=== PATIENT | female | born 1940 | race Caucasian/White ===

== ENCOUNTER → 2017-10-18 10:47 | Outpatient (CLI) | payer OTHER, SELFPAY ==
[2017-10-18 11:47] LABS: Add Manual Diff / Slide Review NO; Hematocrit 36.7 % (36-46); Hemoglobin 12.6 g/dL (12.0-16.0); Lymphocytes Percent Auto 37.7 % (25-40); Mean Corpuscular HGB Conc 34.3 % (30-36); Mean Corpuscular Hemoglobin 32.1 PG (26-34); Mean Corpuscular Volume 93.6 fL (80-100); Neutrophils Absolute Auto 4400 /uL (3000-5900); Neutrophils Percent Auto 48.3 % (50-75); Platelet Count 327 X10^3/uL (150-400); Red Blood Cell Count 3.92 X10^6/uL (4.0-5.2); Red Cell Distribution Width 13.1 % (11.6-14.8); White Blood Cell Count 9.1 X10^3/uL (4.5-11.0)
[2017-10-18 12:24] LABS: Alanine Aminotransferase 43 IU/L (9-52); Albumin 4.3 g/dL (3.5-5.0); Albumin Globulin Ratio 1.3 (1.0-2.8); Alkaline Phosphatase 96 U/L (38-126); Amylase 34 U/L (30-110); Aspartate Aminotransferase 40 IU/L (14-36); BUN Creatinine Ratio 23.3 (6-22); Bilirubin Total 0.5 mg/dL (0.2-1.3); Calcium 9.5 mg/dL (8.4-10.2); Estimated Glomerular Filt Rate > 60.0 mL/min (>60); Globulin 3.2 g/dL (1.7-4.1); Glucose 96 mg/dL (80-110); HEMOLYSIS 15 (0-50); Lipase 43 U/L (23-300); Sodium 143 mmol/L (137-145); Total Protein 7.5 g/dL (6.3-8.2)
== END ==
PROVIDERS: PCP Family Medicine; Visit Provider Family Medicine
DX: R10.9 Unspecified abdominal pain (principal)
CPT/HCPCS: 36415; 80053; 82150; 83690; 85025

== ENCOUNTER 2017-11-13 09:46 | Emergency (ER) | payer OTHER, SELFPAY ==
[2017-11-13 10:01] VITALS: BP 178/71; PULSE 90; RESP 18; TEMP 36.9; O2SAT 98
[2017-11-13 10:13] LABS: Add Manual Diff / Slide Review NO; Basophils Percent Auto 1.1 % (0-2); Eosinophils Percent Auto 5.4 % (2-4); Hematocrit 40.9 % (36-46); Hemoglobin 13.9 g/dL (12.0-16.0); Lymphocytes Percent Auto 41.6 % (25-40); Mean Corpuscular Hemoglobin 32.6 PG (26-34); Mean Corpuscular Volume 95.7 fL (80-100); Monocytes Percent Auto 9.3 % (3-14); Neutrophils Absolute Auto 4000 /uL (3000-5900); Neutrophils Percent Auto 42.6 % (50-75); Platelet Count 247 X10^3/uL (150-400); Red Blood Cell Count 4.27 X10^6/uL (4.0-5.2); Red Cell Distribution Width 12.8 % (11.6-14.8); White Blood Cell Count 9.4 X10^3/uL (4.5-11.0)
[2017-11-13 10:20] LABS: Alanine Aminotransferase 50 IU/L (9-52); Albumin 4.5 g/dL (3.5-5.0); Albumin Globulin Ratio 1.3 (1.0-2.8); Alkaline Phosphatase 74 U/L (38-126); Aspartate Aminotransferase 43 IU/L (14-36); BUN Creatinine Ratio 22.9 (6-22); Bilirubin Total 0.8 mg/dL (0.2-1.3); Blood Urea Nitrogen 16 mg/dL (7-17); Calcium 9.3 mg/dL (8.4-10.2); Carbon Dioxide 28 mmol/L (22-32); Chloride 102 mmol/L (98-107); Estimated Glomerular Filt Rate > 60.0 mL/min (>60); Globulin 3.4 g/dL (1.7-4.1); Glucose 160 mg/dL (80-110); Lipase 37 U/L (23-300); Potassium 4.2 mmol/L (3.4-5.1); Sodium 142 mmol/L (137-145); Total Protein 7.9 g/dL (6.3-8.2)
[2017-11-13 10:21] LABS: HEMOLYSIS 56 (0-50); Lactate (Lactic Acid) 1.4 mmol/L (0.7-2.1)
--- NOTE | 2017-11-13 10:24 | ED.ABDPAIN ---
HPI - Abdominal Pain General Chief Complaint: Abdominal Pain Stated Complaint: BOWEL BLOCKAGE Time Seen by Provider: 11/13/17 09:54 Source: patient Mode of arrival: ambulatory Limitations: no limitations History of Present Illness HPI narrative: 77-year-old female with a longstanding history of constipation here for evaluation of constipation for the past 10 days and possible ?bowel blockage. Patient states that her last bowel movement was 10 days ago. States she has stopped taking her oxycodone. Has also tried MiraLax approximately 1 week ago. Tried an enema within the past 24 hr. States that she does feel somewhat nauseous. Feels like her abdomen is distended. No urinary symptoms. Related Data Home Medications Medication Instructions Recorded Confirmed Fish Oil 500 mg PO Q DAY #0 12/22/15 11/13/17 calcium carbonate 1 tab PO DAILY #0 tab 12/22/15 11/13/17 polyethylene glycol 3350 [Miralax] 17 gm PO Q DAY PRN #0 12/22/15 11/13/17 One Daily Women 50 Plus 1 tab PO DAILY 11/13/17 11/13/17 Previous Rx's Medication Instructions Recorded amlodipine [Norvasc] 5 mg PO QDAY #90 tab 03/20/17 atorvastatin [Lipitor] 10 mg PO HS #30 tab 04/02/17 dicyclomine 20 mg PO PRN #90 tab 08/12/17 amitriptyline 25 mg PO HS #60 tab 09/02/17 ondansetron 4 - 8 mg SUBLINGUAL Q8HP PRN #40 09/02/17 odt sucralfate 1 gram tablet 1 gram PO Q DAY PRN #90 tab 10/09/17 hydrocodone 5 mg-acetaminophen 325 1 tab PO BID PRN #60 tab 10/18/17 mg tablet omeprazole 40 mg capsule,delayed 40 mg PO AC #90 cap 10/31/17 release lisinopril 20 mg tablet 20 mg PO QDAY #90 tab 11/01/17 magnesium citrate 120 ml PO BID PRN #296 ml 11/13/17 Allergies Allergy/AdvReac Type Severity Reaction Status Date / Time prochlorperazine Allergy Severe lock jaw Verified 10/18/17 09:53 [PROCHLORPERAZINE] type symptoms amoxicillin [From AUGMENTIN] Allergy Intermediate Nausea and Verified 10/18/17 09:53 vomitting. clavulanic acid Allergy Intermediate n&v Verified 10/18/17 09:53 [From AUGMENTIN] Review of Systems Constitutional Denies chills, Denies fever(s), Denies lethargy and Denies weakness Cardiovascular Denies chest pain, Denies irregular heart rhythm, Denies lightheadedness, Denies palpitations, Denies dyspnea, Denies dyspnea on exertion and Denies orthopnea Respiratory Denies cough, Denies dyspnea, Denies dyspnea on exertion and Denies wheezing Gastrointestinal Gastrointestinal: Reports change in bowel habits, Reports constipation, Denies diarrhea, Denies loose stools, Reports nausea and Denies vomiting Genitourinary Denies dysuria Integumentary/Breasts Denies pruritus, Denies erythema, Denies rash and Denies wounds Neurologic Denies weakness Endocrine Denies palpitations Hematologic/Lymphatic Denies easy bruising Allergic/Immunologic Denies wheezing [facility] Medical History Irritable bowel syndrome without diarrhea (Chronic 12/22/15) Midline low back pain without sciatica (Chronic 12/22/15) Uncomplicated opioid use (Chronic 03/12/17) Chronic back pain (Chronic 1999) Colitis (Chronic 1979) GERD (gastroesophageal reflux disease) (Chronic 1979) Hypercholesterolemia (Chronic Unknown) Hypertension (Chronic 1979) IBS (irritable bowel syndrome) (Chronic 2001) Osteopenia (Chronic 06/2015) Osteoporosis (Chronic 05/2017) Sleep apnea (Chronic 2009) Breast cancer (Resolved 2001) Chickenpox (Resolved Unknown) Kidney stones (Resolved 1989) Measles (Resolved Unknown) Mumps (Resolved Unknown) 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 Social History Smoking Status: Never smoker Exam Initial Vital Signs Initial Vital Signs: Vital Signs Temperature 98.5 F 11/13/17 10:01 Pulse Rate 90 11/13/17 10:01 Respiratory Rate 18 11/13/17 10:01 Blood Pressure 178/71 H 11/13/17 10:01 Pulse Oximetry 98 11/13/17 10:01 Resp Effort & Inspection: normal respiratory effort, able to speak in complete sentences, no respiratory distress and no use of accessory muscles Auscultation: clear to auscultation bilaterally, no rales, no rhonchi and no wheezes Cardio Rate: regular rate Rhythm: regular rhythm Heart Sounds: no click, no gallops, no murmurs and no rubs Pulses: normal peripheral pulses GI Inspection: distended Palpation: soft, No firm and No guarding Auscultation: normal bowel sounds Back/Spine/Pelvis Back: No CVA tenderness Skin General: no rashes or lesions noted, No jaundice and No petechiae Neuro General: alert, oriented x3, gait normal and no focal motor deficits Speech: speech normal Extrem General: full ROM, no clubbing, cyanosis or edema, no pedal edema and no calf tenderness Course Orders Ordered: ED Orders 11/13/17 10:00 Complete Blood Count AUTO DIFF Stat Comprehensive Metabolic Panel Stat Lactate (Lactic Acid) Stat Lipase Stat 11/13/17 11:30 CT abdomen pelvis w con Stat Vital Signs - 8 hr 11/13/17 10:01 11/13/17 11:02 11/13/17 12:11 Temperature 98.5 F Pulse Rate 90 72 69 Respiratory Rate 18 15 Blood Pressure 178/71 H Blood Pressure [Left Arm] 159/67 H 162/61 H Pulse Oximetry 98 100 99 11/13/17 12:49 11/13/17 12:50 Temperature Pulse Rate 68 79 Respiratory Rate 18 16 Blood Pressure 136/60 H Blood Pressure [Left Arm] 136/60 H Pulse Oximetry 96 98 MDM - Abdominal Pain Lab Data Attestation: I reviewed the patient's lab results. Result diagrams: 11/13/17 10:00 11/13/17 10:00 Lab Results 11/13/17 11/13/17 11/13/17 Range/Units 10:00 10:00 10:00 WBC 9.4 (4.5-11.0) X10^3/uL RBC 4.27 (4.0-5.2) X10^6/uL Hgb 13.9 (12.0-16.0) g/dL Hct 40.9 (36-46) % MCV 95.7 (80-100) fL MCH 32.6 (26-34) PG MCHC 34.0 (30-36) % RDW 12.8 (11.6-14.8) % Plt Count 247 (150-400) X10^3/uL Neut % (Auto) 42.6 L (50-75) % Lymph % (Auto) 41.6 H (25-40) % [place] % (Auto) 9.3 (3-14) % Eos % (Auto) 5.4 H (2-4) % Baso % (Auto) 1.1 (0-2) % Neut # (Auto) 4000 (1684-1207) /uL Sodium 142 (137-145) mmol/L Potassium 4.2 (3.4-5.1) mmol/L Chloride 102 (98-107) mmol/L Carbon Dioxide 28 (22-32) mmol/L BUN 16 (7-17) mg/dL Creatinine 0.70 (0.52-1.04) mg/dL Estimated GFR > 60.0 (>60) mL/min BUN/Creatinine Ratio 22.9 H (6-22) Glucose 160 H (80-110) mg/dL Lactate 1.4 (0.7-2.1) mmol/L Calcium 9.3 (8.4-10.2) mg/dL Total Bilirubin 0.8 (0.2-1.3) mg/dL AST 43 H (14-36) IU/L ALT 50 (9-52) IU/L Alkaline Phosphatase 74 (38-126) U/L Total Protein 7.9 (6.3-8.2) g/dL Albumin 4.5 (3.5-5.0) g/dL Globulin 3.4 (1.7-4.1) g/dL Albumin/Globulin Ratio 1.3 (1.0-2.8) Lipase 37 (23-300) U/L Imaging Data CT scan - abdomen: Radiologist's impression: PROCEDURE: CT ABDOMEN PELVIS W CON INDICATIONS: Abdominal pain, distension, constipation concern for obstruction. TECHNIQUE: After the administration of oral and intravenous contrast, 5 mm thick sections acquired from the diaphragms to the symphysis. 5 mm thick coronal and sagittal reformats were performed. For radiation dose reduction, the following was used: automated exposure control, adjustment of mA and/or kV according to patient size. COMPARISON: [facility], CT, ABDOMEN/PELVIS WITH CONTRAST, 01/21/2014, 10:21. [facility], [place], ABDOMEN/PELVIS WITH CONTRAST, 01/21/2012, 13:55. [facility], [place], ABDOMEN/PELVIS WITH CONTRAST, 04/26/2011, 11:39. FINDINGS: Image quality: Excellent. ABDOMEN: Lung bases: Lung bases are clear. Heart size is normal. Solid organs: Liver is normal in size. A small, approximately 6 mm in diameter focus of ill-defined postcontrast enhancement of the anterior-superior subsegment of the right lobe of liver is stable compared to 01/18 2014 and a represent flash filling of a small hemangioma. Liver otherwise has normal postcontrast enhancement. Diffuse fatty infiltration the liver is noted. Gallbladder is surgically absent. Biliary system is non-dilated. Pancreas enhances normally. Spleen is normal in size and enhancement. No adrenal nodules. Kidneys are normal in size and enhancement, without hydronephrosis. Right renal cyst is stable. Peritoneum and bowel: Moderate size hiatal hernia. Stomach, small bowel, and colon loops are normal in caliber and wall thickness. A few diverticuli are noted in the sigmoid colon without evidence diverticulitis. Moderate amount of stool seen throughout the colon. No free fluid or air. The appendix is not definitely visualized, however no free fluid or inflammatory changes are noted adjacent to the cecum. Nodes and vessels: No retroperitoneal or mesenteric adenopathy. Aorta and inferior vena cava are normal in caliber. Scattered atherosclerotic calcifications involving the abdominal and pelvic vasculature. Miscellaneous: No ventral hernias. PELVIS: Genitourinary: Bladder wall thickness is normal. Uterus is absent. Miscellaneous: No inguinal hernias or adenopathy. Bones: No suspicious bony lesions. No vertebral body compression fractures. Spine degenerative disc disease and facet arthropathy. IMPRESSION: 1. No acute disease process. 2. No dilated loops of bowel. 3. No free fluid or free air. 4. Moderate fecal loading throughout the colon compatible with the reported history of constipation. 5. Hepatic steatosis. 6. Status post cholecystectomy and hysterectomy. Dictated by: Rosaura Devlin MD, PhD on 11/13/2017 at 11:48 MDM Narrative Medical decision making narrative: Patient without signs of obstruction on the CT scan. Does have a distended abdomen however it is soft. We did discuss the use of enemas and she states that she does not feel like there is any stool near her rectum. Will hold on rectal exam for now. We did discuss the use of oral laxatives. Will send home with a prescription for Mag citrate that she could use along with her MiraLax. She does have a GI provider that she sees. She was given return precautions. She expressed understanding and agreement with plan. Discharge Plan Departure Patient Disposition: Home, Self-Care Clinical Impression: Constipation Discharge Date/Time: 11/13/17 12:51 Interventions: ED Discharge Assessment Last Done: 11/13/17 12:49 Instructions: Constipation (Alternative Therapy), Constipation Activity Restrictions/Additional Instructions: Recommend that you continue with the bowel regimen like we discussed. Return to the emergency department for any new or worsening symptoms Prescriptions: New magnesium citrate solution 120 ml PO BID PRN (Reason: constipation) Qty: 296 RF: 0 No Action hydrocodone-acetaminophen [[place]] 5-325 mg tablet 1 tab PO BID PRN (Reason: pain) Qty: 60 RF: 0 calcium carbonate 500 MG tablet 1 tab PO DAILY Qty: 0 RF: 0 Fish Oil 500 mg PO Q DAY Qty: 0 RF: 0 polyethylene glycol 3350 [Miralax] 17 GM powder in packet 17 gm PO Q DAY PRN (Reason: Constipation) Qty: 0 RF: 0 amlodipine [Norvasc] 5 MG tablet 5 mg PO QDAY Qty: 90 RF: 3 atorvastatin [Lipitor] 10 MG tablet 10 mg PO HS Qty: 30 RF: 2 dicyclomine 20 MG tablet 20 mg PO PRN Qty: 90 RF: 3 amitriptyline 25 MG tablet 25 mg PO HS Qty: 60 RF: 5 ondansetron 4 MG tablet,disintegrating 4 - 8 mg Sublingual Q8HP PRNQty: 40 RF: 4 sucralfate 1 gram tablet 1 gram PO Q DAY PRN (Reason: IBS) Qty: 90 RF: 0 omeprazole 40 mg capsule,delayed release(DR/EC) 40 mg PO AC Qty: 90 RF: 1 lisinopril 20 mg tablet 20 mg PO QDAY Qty: 90 RF: 1 One Daily Women 50 Plus 1 tab PO DAILY RF: 0
[2017-11-13 11:02] VITALS: BP 159/67; PULSE 72; O2SAT 100
--- NOTE | 2017-11-13 11:30 | DI.CT.S_ITS ---
PROCEDURE: CT ABDOMEN PELVIS W CON INDICATIONS: Abdominal pain, distension, constipation concern for obstruction. TECHNIQUE: After the administration of oral and intravenous contrast, 5 mm thick sections acquired from the diaphragms to the symphysis. 5 mm thick coronal and sagittal reformats were performed. For radiation dose reduction, the following was used: automated exposure control, adjustment of mA and/or kV according to patient size. COMPARISON: [facility], CT, ABDOMEN/PELVIS WITH CONTRAST, 01/21/2014, 10:21. [facility], CT, ABDOMEN/PELVIS WITH CONTRAST, 01/21/2012, 13:55. [facility], CT, ABDOMEN/PELVIS WITH CONTRAST, 04/26/2011, 11:39. FINDINGS: Image quality: Excellent. ABDOMEN: Lung bases: Lung bases are clear. Heart size is normal. Solid organs: Liver is normal in size. A small, approximately 6 mm in diameter focus of ill-defined postcontrast enhancement of the anterior-superior subsegment of the right lobe of liver is stable compared to 01/18 2014 and a represent flash filling of a small hemangioma. Liver otherwise has normal postcontrast enhancement. Diffuse fatty infiltration the liver is noted. Gallbladder is surgically absent. Biliary system is non-dilated. Pancreas enhances normally. Spleen is normal in size and enhancement. No adrenal nodules. Kidneys are normal in size and enhancement, without hydronephrosis. Right renal cyst is stable. Peritoneum and bowel: Moderate size hiatal hernia. Stomach, small bowel, and colon loops are normal in caliber and wall thickness. A few diverticuli are noted in the sigmoid colon without evidence diverticulitis. Moderate amount of stool seen throughout the colon. No free fluid or air. The appendix is not definitely visualized, however no free fluid or inflammatory changes are noted adjacent to the cecum. Nodes and vessels: No retroperitoneal or mesenteric adenopathy. Aorta and inferior vena cava are normal in caliber. Scattered atherosclerotic calcifications involving the abdominal and pelvic vasculature. Miscellaneous: No ventral hernias. PELVIS: Genitourinary: Bladder wall thickness is normal. Uterus is absent. Miscellaneous: No inguinal hernias or adenopathy. Bones: No suspicious bony lesions. No vertebral body compression fractures. Spine degenerative disc disease and facet arthropathy. IMPRESSION: 1. No acute disease process. 2. No dilated loops of bowel. 3. No free fluid or free air. 4. Moderate fecal loading throughout the colon compatible with the reported history of constipation. 5. Hepatic steatosis. 6. Status post cholecystectomy and hysterectomy. Dictated by: Rosaura Devlin MD, PhD on 11/13/2017 at 11:48 Approved by: Rosaura Devlin MD, PhD on 11/13/2017 at 11:55
[2017-11-13 12:11] VITALS: BP 162/61; PULSE 69; RESP 15; O2SAT 99
--- NOTE | 2017-11-13 12:26 | PC.NURSE ---
To transfer to for admission. Possible pacemaker placemacement.
[2017-11-13 12:49] VITALS: BP 136/60; PULSE 68; RESP 18; O2SAT 96
[2017-11-13 12:50] VITALS: BP 136/60; PULSE 79; RESP 16; O2SAT 98
== END 2017-11-13 12:51 | disposition home or self-care (01) ==
PROVIDERS: Emergency Provider Emergency Medicine; PCP Family Medicine
DX: K59.00 Constipation, unspecified (principal)
CPT/HCPCS: 36591; 74177; 80053; 81003; 83605; 83690; 85025; 99283; 99285; Q9967

== ENCOUNTER 2019-12-31 14:58 | Emergency (ER) | payer MEDICARE, SELFPAY ==
[2019-12-31 15:03] VITALS: BP 147/70; PULSE 89; RESP 14; TEMP 36.7; O2SAT 97; BMI 26.4
[2019-12-31] MEDS: SODIUM CHLORIDE 0.9% 1,000 ML 150 ML IV (15:45)
[2019-12-31 15:51] LABS: Add Manual Diff / Slide Review NO; Basophils Absolute Auto 100 /uL (0-100); Basophils Percent Auto 0.9 % (0-2); Eosinophils Absolute Auto 500 /uL (0-450); Eosinophils Percent Auto 4.5 % (2-4); Hematocrit 34.6 % (36-46); Hemoglobin 11.8 g/dL (12.0-16.0); Lymphocytes Absolute Auto 3100 /uL (1100-4500); Lymphocytes Percent Auto 26.2 % (25-40); Mean Corpuscular Hemoglobin 32.1 PG (26-34); Mean Corpuscular Volume 94.3 fL (80-100); Monocytes Absolute Auto 1000 /uL (0-900); Monocytes Percent Auto 8.9 % (3-14); Neutrophils Absolute Auto 6900 /uL (1500-7000); Neutrophils Percent Auto 59.5 % (50-75); Platelet Count 261 X10^3/uL (150-400); Red Blood Cell Count 3.67 X10^6/uL (4.0-5.2); Red Cell Distribution Width 12.8 % (11.6-14.8); White Blood Cell Count 11.7 X10^3/uL (4.5-11.0)
--- NOTE | 2019-12-31 15:52 | ED.NAVMDI ---
HPI - Nausea/Vomiting/Diarrhea General Chief complaint: Nausea/Vomiting/Diarrhea Stated complaint: IBS since saturday, thinks dehydrated Time Seen by Provider: 12/31/19 15:14 Source: patient Mode of arrival: Ambulatory Limitations: no limitations History of Present Illness HPI Narrative: Patient is an 79-year-old female with history of IBS presenting with nausea vomiting abdominal pain and down diarrhea ongoing for the last 5 days. This is happened to her many times. However at this time it is the worst. This started with vomiting and able to keep anything down and she has had intermittent episodes of diarrhea sometimes blood streaked which is not uncommon for her. She says she over all feels run down and weak, she feels a little dizzy lightheaded when she stands up she is unable to keep any fluids down. She has abdominal pain mostly in the right lower quadrant. MD complaint: nausea, vomiting, diarrhea and abdominal pain Onset (ago): day(s) Description of Diarrhea: blood-streaked Location of pain: RLQ Severity: moderate Quality: cramping Related Data Home Medications Medication Instructions Recorded Confirmed Fish Oil 500 mg PO Q DAY #0 12/22/15 07/10/19 calcium carbonate 1 tab PO DAILY #0 tab 12/22/15 07/10/19 polyethylene glycol 3350 [Miralax] 17 gm PO Q DAY PRN #0 12/22/15 07/10/19 One Daily Women 50 Plus 1 tab PO DAILY 11/13/17 07/10/19 sucralfate 1 gram tablet 1 gram PO ONCE tab 07/10/19 07/10/19 Previous Rx's Medication Instructions Recorded ondansetron 4 - 8 mg SUBLINGUAL Q8HP PRN #40 09/02/17 odt lisinopril 20 1 tab PO DAILY #90 tab 11/26/18 mg-hydrochlorothiazide 25 mg tablet cyclobenzaprine 5 mg tablet 5 mg PO BEDTIME PRN #90 tab 08/11/19 acetaminophen 300 mg-codeine 30 mg 1 tab PO DAILY PRN #30 tab 09/25/19 tablet dicyclomine 20 mg tablet 20 mg PO PRN #30 tab 09/25/19 omeprazole 40 mg capsule,delayed 40 mg PO AC #90 cap 09/28/19 release amlodipine 2.5 mg tablet 2.5 mg PO QDAY #90 tab 06/17/20 ondansetron 4 mg PO Q8H PRN #10 tab 12/31/19 Allergies Allergy/AdvReac Type Severity Reaction Status Date / Time prochlorperazine Allergy Severe lock jaw Verified 12/31/19 15:23 [PROCHLORPERAZINE] type symptoms amoxicillin [From AUGMENTIN] Allergy Intermediate Nausea and Verified 12/31/19 15:23 vomitting. clavulanic acid Allergy Intermediate n&v Verified 12/31/19 15:23 [From AUGMENTIN] Review of Systems Review of Systems ROS Unobtainable: All systems reviewed & are unremarkable except as noted in HPI and below Constitutional Constitutional: Denies chills, Denies fever(s), Denies lethargy and Denies weakness Eyes Eyes: Denies change in vision, Denies eye discharge, Denies irritation and Denies loss of vision ENT Ears, Nose, Mouth, and Throat: Denies change in voice, Denies neck pain and Denies sore throat Cardiovascular Cardiovascular: Denies chest pain, Denies irregular heart rhythm, Reports lightheadedness, Denies palpitations and Denies orthopnea Musculoskeletal Musculoskeletal: Denies neck pain Neurologic Neurologic: Denies loss of vision and Denies weakness Endocrine Endocrine: Denies palpitations Patient History Medical History (Updated 12/31/19 @ 18:20 by Chloé Urena DO) Breast cancer (Resolved 2001) Chickenpox (Resolved Unknown) Chronic back pain (Chronic 1999) Colitis (Chronic 1979) GERD (gastroesophageal reflux disease) (Chronic 1979) Hypercholesterolemia (Chronic Unknown) Hypertension (Chronic 1979) IBS (irritable bowel syndrome) (Chronic 2001) Irritable bowel syndrome without diarrhea (Chronic 12/22/15) Kidney stones (Resolved 1989) Measles (Resolved Unknown) Midline low back pain without sciatica (Chronic 12/22/15) Mumps (Resolved Unknown) Osteopenia (Chronic 06/2015) Osteoporosis (Chronic 05/2017) Sleep apnea (Chronic 2009) 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 Social History marital status: housing: house Smoking Status: Never smoker Smoking Status: Never smoker alcohol intake frequency: holidays/special occasions only Substance Use Type: does not use Exam Initial Vital Signs Initial Vital Signs: Vital Signs Temperature 98.0 F 12/31/19 15:03 Pulse Rate 89 12/31/19 15:03 Respiratory Rate 14 12/31/19 15:03 Blood Pressure 147/70 H 12/31/19 15:03 Pulse Oximetry 97 12/31/19 15:03 GENERAL: Alert pleasant elderly female HEENT: Head atraumatic,EOMI, pupils reactive, face symmetric, dry mucous membranes CARDIOVASCULAR: Regular rate and rhythm without murmurs, rubs or gallops. RESPIRATORY: Breath sounds equal bilaterally, no wheezes rales or rhonchi. ABDOMEN: Soft, increased bowel sounds nondistended tender right lower quadrant : No CVA tenderness EXTREMITIES: Normal range of motion, no clubbing or edema. Neurovascularly intact NEUROLOGICAL: Alert and oriented x4.Normal gait and speech. Cranial nerves II through XII grossly intact. SKIN: Warm, dry, no laceration, no petechiae, no rashes or lesions. Course Orders Ordered: Discontinued Medications Sodium Chloride (Normal Saline 0.9%) 1,000 mls @ 150 mls/hr IV CONT BARBIE Last Infusion: 12/31/19 19:06 Dose: 0 mls/hr Documented by: Infusion: 12/31/19 19:05 Dose: 999 mls/hr Documented by: Admin: 12/31/19 15:45 Dose: 150 mls/hr Documented by: ERICA Vital Signs Vital signs: Vital Signs - 8 hr 12/31/19 15:03 12/31/19 16:12 Temperature 98.0 F Pulse Rate 89 Pulse Rate [Orthostatic Lying] 83 Pulse Rate [Orthostatic Sitting] 85 Pulse Rate [Orthostatic Standing] 91 H Respiratory Rate 14 Blood Pressure 147/70 H Blood Pressure [Orthostatic Lying] 163/70 H Blood Pressure [Orthostatic Sitting] 149/82 H Blood Pressure [Orthostatic Standing] 136/65 Pulse Oximetry 97 MDM - Nausea/Vomiting/Diarrhea Lab Data Attestation: I reviewed the patient's lab results. Result diagrams: 12/31/19 15:43 08/06/20 15:43 Labs: Lab Results 12/31/19 12/31/19 Range/Units 15:43 15:43 WBC 11.7 H (4.5-11.0) X10^3/uL RBC 3.67 L (4.0-5.2) X10^6/uL Hgb 11.8 L (12.0-16.0) g/dL Hct 34.6 L (36-46) % MCV 94.3 (80-100) fL MCH 32.1 (26-34) PG MCHC 34.0 (30-36) % RDW 12.8 (11.6-14.8) % Plt Count 261 (150-400) X10^3/uL Neut % (Auto) 59.5 (50-75) % Lymph % (Auto) 26.2 (25-40) % Stearns % (Auto) 8.9 (3-14) % Eos % (Auto) 4.5 H (2-4) % Baso % (Auto) 0.9 (0-2) % Neut # (Auto) 6900 (4754-5714) /uL Lymph # (Auto) 3100 (1546-0829) /uL Stearns # (Auto) 1000 H (0-900) /uL Eos # (Auto) 500 H (0-450) /uL Baso # (Auto) 100 (0-100) /uL Sodium 137 (137-145) mmol/L Potassium 4.8 (3.4-5.1) mmol/L Chloride 100 (98-107) mmol/L Carbon Dioxide 27 (22-32) mmol/L BUN 26 H (7-17) mg/dL Creatinine 1.21 H (0.52-1.04) mg/dL Estimated GFR 42.7 L (>60) mL/min BUN/Creatinine Ratio 21.5 (6-22) Glucose 114 H (80-110) mg/dL Calcium 10.3 H (8.4-10.2) mg/dL Total Bilirubin 0.6 (0.2-1.3) mg/dL AST 39 H (14-36) IU/L ALT 28 (<35) IU/L Alkaline Phosphatase 84 (38-126) U/L Total Protein 7.7 (6.3-8.2) g/dL Albumin 4.4 (3.5-5.0) g/dL Globulin 3.3 (1.7-4.1) g/dL Albumin/Globulin Ratio 1.3 (1.0-2.8) Lipase 46 (23-300) U/L Urine Dip Bedside Urine Glucose Negative Bedside Urine Bilirubin - Negative Bedside Urine Ketone - Negative Urine Specific Tornillo 1.010 Bedside Urine Occult Blood - Negative Bedside Urine Protein - Negative Bedside Urine Urobilinogen +/- 1mg Bedside Urine Nitrite - Negative Bedside Urine Leukocytes - Negative Esterase Imaging Data CT scan - abdomen/pelvis: Radiologist's Impression: PROCEDURE: CT ABDOMEN PELVIS W CON INDICATIONS: rlq pain TECHNIQUE: After the administration of intravenous contrast, 5 mm thick sections acquired from the diaphragm to the symphysis. 5 mm coronal and sagittal reformats were acquired. For radiation dose reduction, the following was used: automated exposure control, adjustment of mA and/or kV according to patient size. COMPARISON: [facility], CT, CT ABDOMEN PELVIS W CON, 11/13/2017, 11:06. [facility], CT, ABDOMEN/PELVIS WITH CONTRAST, 01/21/2014, 10:21. FINDINGS: Image quality: Excellent. ABDOMEN: Lung bases: Lung bases are clear. Heart size is normal. Solid organs: Liver is normal in size and enhancement. A non-specific calcification is seen at the anterior margin of the left hepatic lobe, possibly related to prior granulomatous disease. The gallbladder is surgically absent. The intrahepatic and extrahepatic biliary ducts are not significantly enlarged. The pancreas enhances normally. The spleen is normal in size and contains a few small coarse calcifications, likely the sequela of prior granulomatous disease. No adrenal nodule is identified. An exophytic cyst is seen in the interpolar region of the right kidney. There is no hydronephrosis. Peritoneum and bowel: A small hiatal hernia is present. A few diverticula are seen in the sigmoid colon without signs of acute diverticulitis. Moderate stool is seen throughout the colon. The appendix is not definitely visualized, but there are no secondary signs of acute appendicitis. There are no signs of bowel obstruction. There is no ascites or pneumoperitoneum. Nodes and vessels: No retroperitoneal or mesenteric adenopathy by size criteria. Aorta and inferior vena cava are normal in size. Moderate atherosclerotic calcifications are seen in the aorta. Miscellaneous: No ventral hernias. PELVIS: Genitourinary: Bladder wall thickness is normal. Status post hysterectomy. No adnexal mass is seen. Miscellaneous: No inguinal hernias or adenopathy. Bones: No suspicious bony lesions. Post vertebroplasty changes are seen in the T12 vertebral body. IMPRESSION: 1. No acute abnormality is identified in the abdomen or pelvis. 2. Mild colonic diverticulosis without signs of acute diverticulitis. 3. Small hiatal hernia. Dictated by: Benjie Nieves M.D. on 12/31/2019 at 16:22 Approved by: Benjie Nieves M.D. on 12/31/2019 at 16:32 [facility] Narrative Medical decision making narrative: Patient is tolerating oral fluids her creatinine is slightly more elevated than normal today is 1.21 previously 0.7, she received 1 L of IV fluids. At this time she is overall feeling much better. I recommend she go home with her Zofran which she has had before. I also talked with her about coming to the ED sooner. She overall is feeling better she understands and agrees to come back sooner if needed. Discharge Plan Departure Patient Disposition: Home Clinical Impression: Gastroenteritis, Acute dehydration Discharge Date/Time: 12/31/19 18:41 Instructions: DI for Dehydration -- Adult, DI for Viral Gastroenteritis -- Adult Activity Restrictions/Additional Instructions: *You have been diagnosed with dehydration *What to do: Increase fluid intake recommend, broth, Jell-O, applesauce Gatorade and or water *Continue to take medications as directed Zofran 4 mg every 8 hours if needed for nausea or vomiting--> SENT TO [facility] [place] *Follow up with your primary care provider in 2-3 days *Return to ER if you should have persistent vomiting or diarrhea increased dizziness or lightheadedness or any new, worsening or concerning symptoms Prescriptions: New ondansetron 4 mg tablet,disintegrating 4 mg PO Q8H PRN (Reason: nausea and vomiting) Qty: 10 RF: 0 No Action calcium carbonate 500 MG tablet 1 tab PO DAILY Qty: 0 RF: 0 Fish Oil 500 mg PO Q DAY Qty: 0 RF: 0 polyethylene glycol 3350 [Miralax] 17 GM powder in packet 17 gm PO Q DAY PRN (Reason: Constipation) Qty: 0 RF: 0 ondansetron 4 MG tablet,disintegrating 4 - 8 mg Sublingual Q8HP PRNQty: 40 RF: 4 lisinopril-hydrochlorothiazide 20-25 mg tablet 1 tab PO DAILY Qty: 90 RF: 3 cyclobenzaprine 5 mg tablet 5 mg PO BEDTIME PRN (Reason: muscle spasm) Qty: 90 RF: 1 dicyclomine 20 mg tablet 20 mg PO PRN Qty: 30 RF: 0 acetaminophen-codeine [Tylenol-Codeine #3] 300-30 mg tablet 1 tab PO DAILY PRN (Reason: pain) Qty: 30 RF: 3 omeprazole 40 mg capsule,delayed release(DR/EC) 40 mg PO AC Qty: 90 RF: 1 amlodipine 2.5 mg tablet 2.5 mg PO QDAY Qty: 90 RF: 1 sucralfate 1 gram tablet 1 gram PO ONCE RF: 0 One Daily Women 50 Plus 1 tab PO DAILY RF: 0 Referrals: Oliver Blank MD [Primary Care Provider] -
[2019-12-31 16:04] LABS: Alanine Aminotransferase 28 IU/L (<35); Albumin 4.4 g/dL (3.5-5.0); Albumin Globulin Ratio 1.3 (1.0-2.8); Alkaline Phosphatase 84 U/L (38-126); Aspartate Aminotransferase 39 IU/L (14-36); BUN Creatinine Ratio 21.5 (6-22); Bilirubin Total 0.6 mg/dL (0.2-1.3); Blood Urea Nitrogen 26 mg/dL (7-17); Calcium 10.3 mg/dL (8.4-10.2); Carbon Dioxide 27 mmol/L (22-32); Chloride 100 mmol/L (98-107); Estimated Glomerular Filt Rate 42.7 mL/min (>60); Globulin 3.3 g/dL (1.7-4.1); Glucose 114 mg/dL (80-110); HEMOLYSIS < 15 (0-50); Lipase 46 U/L (23-300); Potassium 4.8 mmol/L (3.4-5.1); Sodium 137 mmol/L (137-145); Total Protein 7.7 g/dL (6.3-8.2)
[2019-12-31 16:12] VITALS: BP 136/65; BP 149/82; BP 163/70; PULSE 83; PULSE 85; PULSE 91
[2019-12-31 18:24] VITALS: BP 163/69; PULSE 83; RESP 15; O2SAT 100
== END 2019-12-31 18:41 | disposition home or self-care (01) ==
PROVIDERS: Emergency Provider Emergency Medicine; PCP Student in an Organized Health Care Education/Training Program
DX: K52.9 Noninfective gastroenteritis and colitis, unspecified (principal); E86.0 Dehydration; R11.2 Nausea with vomiting, unspecified
CPT/HCPCS: 74177; 80053; 81003; 83690; 85025; 96360; 96361; 99284

== ENCOUNTER → 2020-01-09 10:53 | Outpatient (CLI) | payer MEDICARE, SELFPAY ==
[2020-01-09 12:27] LABS: BUN Creatinine Ratio 22.7 (6-22); Blood Urea Nitrogen 22 mg/dL (7-17); Calcium 9.4 mg/dL (8.4-10.2); Carbon Dioxide 28 mmol/L (22-32); Chloride 103 mmol/L (98-107); Estimated Glomerular Filt Rate 55.1 mL/min (>60); Glucose 123 mg/dL (80-110); HEMOLYSIS < 15 (0-50); Sodium 138 mmol/L (137-145)
== END ==
PROVIDERS: PCP Student in an Organized Health Care Education/Training Program; Referring Provider Student in an Organized Health Care Education/Training Program; Visit Provider Student in an Organized Health Care Education/Training Program
DX: E86.0 Dehydration (principal); N17.9 Acute kidney failure, unspecified
CPT/HCPCS: 36415; 80048

== ENCOUNTER 2020-01-25 11:09 | Emergency (ER) | payer MEDICARE, SELFPAY ==
[2020-01-25] VITALS (15 sets, daily range): BP systolic 98–146; BP diastolic 52–70; PULSE 69–90; RESP 14–28; TEMP 36.4; O2SAT 96–99
--- NOTE | 2020-01-25 11:45 | DI.RAD.S_ITS ---
PROCEDURE: XR ACUTE ABDOMEN SERIES INDICATIONS: abd pain TECHNIQUE: One view chest and two views of the abdomen were acquired. COMPARISON: [facility], CT, CT ABDOMEN PELVIS W CON, 12/31/2019, 16:00. FINDINGS: Surgical changes and devices: Cholecystectomy clips are noted in the right upper quadrant. Vertebroplasty changes are noted in the L1 vertebra. Chest: Lungs are clear. Heart size is normal. No pleural effusions. No pneumoperitoneum. Abdomen: Bowel gas pattern is normal. No suspicious calcifications. Visualized solid organ contours appear normal. Bones: No suspicious bony lesions. The spine is not well evaluated on AP views. IMPRESSION: Nonobstructive bowel gas pattern. No pneumoperitoneum. Dictated by: Benjie Nieves M.D. on 01/25/2020 at 12:26 Approved by: Benjie Nieves M.D. on 01/25/2020 at 12:30
--- NOTE | 2020-01-25 11:47 | ED_ITS ---
HPI - Abdominal Pain <Heidi MesaELIZABETHP-BC - Last Filed: 01/25/20 19:17> General Chief Complaint: Abdominal Pain Stated Complaint: stomach problems Time Seen by Provider: 01/25/20 11:20 Source: patient Mode of arrival: Wheelchair Limitations: no limitations History of Present Illness HPI narrative: The patient is an 79-year-old female nonsmoker with history of able bowel syndrome who presents with a chief complaint of ?IBS flare. she states that 2 days ago, she had sudden onset nausea vomiting, loose stools. She has a history of constipation. She states that 2 days ago she was on the toilet, she got up to open the door go back to bed when she passed out. She states she fell, hit her head on the door and was on the ground so that her could not come in to get her. This episode of syncope occurred 2 days ago. She currently denies any chest pain or shortness of breath. She denies any current lightheadedness or chest pain. She does complain of cervical spine tenderness. She states that she was here earlier this month, received a CT abdomen pelvis. She has not taken anything today to feel better. She states that she takes medication help her abdominal muscle spasms. She has not had anything today to help her feel better. Related Data Home Medications Medication Instructions Recorded Confirmed polyethylene glycol 3350 [Miralax] 17 gm PO Q DAY PRN #0 12/22/15 01/26/20 One Daily Women 50 Plus 1 tab PO DAILY 11/13/17 01/26/20 sucralfate 1 gram tablet 1 gram PO ONCE tab 07/10/19 01/26/20 Previous Rx's Medication Instructions Recorded cyclobenzaprine 5 mg tablet 5 mg PO BEDTIME PRN #90 tab 08/11/19 acetaminophen 300 mg-codeine 30 mg 1 tab PO DAILY PRN #30 tab 09/25/19 tablet omeprazole 40 mg capsule,delayed 40 mg PO AC #90 cap 09/28/19 release amlodipine 2.5 mg tablet 2.5 mg PO QDAY #90 tab 11/11/19 lisinopril 20 1 tab PO DAILY #90 tab 01/04/20 mg-hydrochlorothiazide 25 mg tablet Allergies Allergy/AdvReac Type Severity Reaction Status Date / Time prochlorperazine Allergy Severe lock jaw Verified 01/26/20 14:50 [PROCHLORPERAZINE] type symptoms amoxicillin [From AUGMENTIN] Allergy Intermediate Nausea and Verified 01/26/20 14:50 vomitting. clavulanic acid Allergy Intermediate n&v Verified 01/26/20 14:50 [From AUGMENTIN] Review of Systems <BECKY Jackson- - Last Filed: 01/25/20 19:17> Review of Systems Narrative: GENERAL: Denies chills, fatigue, malaise, fever, sweats. HEENT: Denies sinus pain, ear pain, sore throat, difficulty swallowing, dizziness. RESPIRATORY: Denies dyspnea, cough, wheezing, hemoptysis, sputum. CARDIOVASCULAR: Denies chest pain, palpitations, orthopnea, edema, GASTROINTESTINAL: See HPI : Denies dysuria, frequency, incontinence, hematuria, urinary retention. MUSCULOSKELETAL: See HPI SKIN: Denies rash, skin lesions, or other NEUROLOGIC: Denies weakness, headache, numbness, change in speech, confusion, seizures, incoordination. PSYCHIATRIC: No concerning psychosocial issues. 12 point review of systems is negative except for those stated above Patient History <BECKY Jackson- - Last Filed: 01/25/20 19:17> Medical History (Updated 01/25/20 @ 17:12 [facility] Breast cancer (Resolved 2001) Chickenpox (Resolved Unknown) Chronic back pain (Chronic 1999) Colitis (Chronic 1979) GERD (gastroesophageal reflux disease) (Chronic 1979) Hypercholesterolemia (Chronic Unknown) Hypertension (Chronic 1979) IBS (irritable bowel syndrome) (Chronic 2001) Irritable bowel syndrome without diarrhea (Chronic 12/22/15) Kidney stones (Resolved 1989) Measles (Resolved Unknown) Midline low back pain without sciatica (Chronic 12/22/15) Mumps (Resolved Unknown) Osteopenia (Chronic 06/2015) Osteoporosis (Chronic 05/2017) Sleep apnea (Chronic 2009) 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 Social History marital status: housing: house Smoking Status: Never smoker Smoking Status: Never smoker alcohol intake frequency: holidays/special occasions only Substance Use Type: does not use Exam <SACHIN Jackson - Last Filed: 01/25/20 19:17> Narrative Exam Narrative: GENERAL: This is a well-nourished, well-developed patient, in mild distress. HEAD: Atraumatic. Normocephalic. No temporal or scalp tenderness. EYES: Pupils equal round and reactive. Extraocular motions intact. No scleral icterus. No injection or drainage. ENT: Nose without bleeding, purulent drainage or septal hematoma. Throat without erythema, tonsillar hypertrophy or exudate. Uvula midline. Airway patent. NECK: Trachea midline. No JVD or lymphadenopathy. Supple, nontender, no meningeal signs. CARDIOVASCULAR: Regular rate and rhythm RESPIRATORY: Clear to auscultation. Breath sounds equal bilaterally. No wheezes, rales, or rhonchi. GASTROINTESTINAL: Abdomen soft, diffuse tenderness to palpation, nondistended. No hepato-splenomegaly, or palpable masses. No guarding. Active bowel sounds all 4 quadrants EXTREMITIES: No clubbing, cyanosis, or edema. No joint tenderness, effusion, or edema noted. BACK: Midline cervical spine tenderness without deformity or crepitance. No flank tenderness. NEURO: AOx3. SKIN: No rash or erythema on visible skin Initial Vital Signs Initial Vital Signs: Vital Signs Temperature 97.6 F 01/25/20 11:13 Pulse Rate 90 01/25/20 11:13 Respiratory Rate 14 01/25/20 11:13 Blood Pressure 115/63 01/25/20 11:13 Pulse Oximetry 98 01/25/20 11:13 <Elaina Rivera MD - Last Filed: 02/02/20 08:24> Initial Vital Signs Initial Vital Signs: Vital Signs Temperature 97.6 F 01/25/20 11:13 Pulse Rate 90 01/25/20 11:13 Respiratory Rate 14 01/25/20 11:13 Blood Pressure 115/63 01/25/20 11:13 Pulse Oximetry 98 01/25/20 11:13 Scores <SACHIN Jackson - Last Filed: 01/25/20 19:17> GCS Ranjana coma scale eye opening: Spontaneous Hudson coma scale verbal response: Orientated Ranjana coma scale motor response: Obey commands Hudson coma scale total score: 15 Nexus Score for C-Spine Focal Neurologic deficit present: No Midline spinal tenderness present: Yes Altered level of conciousness present: No Intoxication present: No Distracting Injury Present: No Nexus Criteria for C-spine: 1 Course <Heidikailee Arteagamer, FAMILY PRESERVATION WORKER-BC - Last Filed: 01/25/20 19:17> Orders Ordered: Discontinued Medications Sodium Chloride (Normal Saline 0.9%) 1,000 mls @ 1,000 mls/hr IV BOLUS ONE Stop: 01/25/20 12:49 Last Infusion: 01/25/20 14:44 Dose: 0 mls/hr Documented by: Admin: 01/25/20 12:32 Dose: 1,000 mls/hr Documented by: NIKO Ondansetron HCl (Zofran) 4 mg IV NOW ONE Stop: 01/25/20 11:51 Last Admin: 01/25/20 12:32 Dose: 4 mg Documented by: NIKO Vital Signs Vital signs: Vital Signs - 8 hr 01/25/20 12:36 01/25/20 13:00 01/25/20 13:30 Pulse Rate 78 74 74 Respiratory Rate 17 19 Blood Pressure 114/56 L 108/54 L 122/53 L Pulse Oximetry 97 97 98 01/25/20 14:00 01/25/20 14:30 01/25/20 14:31 Pulse Rate 78 73 76 Respiratory Rate 28 H 18 18 Blood Pressure 146/70 H 102/54 L Pulse Oximetry 99 98 98 01/25/20 15:00 01/25/20 15:30 01/25/20 16:00 Pulse Rate 74 72 77 Respiratory Rate 17 20 17 Blood Pressure 105/55 L 106/52 L 114/55 L Pulse Oximetry 98 98 96 01/25/20 16:30 01/25/20 17:00 01/25/20 17:17 Pulse Rate 78 73 74 Respiratory Rate 20 19 22 Blood Pressure 98/53 L 116/55 L Pulse Oximetry 96 96 96 01/25/20 17:30 01/25/20 18:00 Pulse Rate 72 69 Respiratory Rate 18 21 Blood Pressure 102/52 L Pulse Oximetry 98 97 <Elaina Rivera MD - Last Filed: 02/02/20 08:24> Orders Ordered: Discontinued Medications Sodium Chloride (Normal Saline 0.9%) 1,000 mls @ 1,000 mls/hr IV BOLUS ONE Stop: 01/25/20 12:49 Last Infusion: 01/25/20 14:44 Dose: 0 mls/hr Documented by: Admin: 01/25/20 12:32 Dose: 1,000 mls/hr Documented by: NIKO Ondansetron HCl (Zofran) 4 mg IV NOW ONE Stop: 01/25/20 11:51 Last Admin: 01/25/20 12:32 Dose: 4 mg Documented by: NIKO Vital Signs Vital signs: Vital Signs - 8 hr 01/25/20 12:36 01/25/20 13:00 01/25/20 13:30 Pulse Rate 78 74 74 Respiratory Rate 17 19 Blood Pressure 114/56 L 108/54 L 122/53 L Pulse Oximetry 97 97 98 01/25/20 14:00 01/25/20 14:30 01/25/20 14:31 Pulse Rate 78 73 76 Respiratory Rate 28 H 18 18 Blood Pressure 146/70 H 102/54 L Pulse Oximetry 99 98 98 01/25/20 15:00 01/25/20 15:30 01/25/20 16:00 Pulse Rate 74 72 77 Respiratory Rate 17 20 17 Blood Pressure 105/55 L 106/52 L 114/55 L Pulse Oximetry 98 98 96 01/25/20 16:30 01/25/20 17:00 01/25/20 17:17 Pulse Rate 78 73 74 Respiratory Rate 20 19 22 Blood Pressure 98/53 L 116/55 L Pulse Oximetry 96 96 96 01/25/20 17:30 01/25/20 18:00 Pulse Rate 72 69 Respiratory Rate 18 21 Blood Pressure 102/52 L Pulse Oximetry 98 97 MDM - Abdominal Pain <SACHIN Jackson - Last Filed: 01/25/20 19:17> Differential Diagnosis Differential diagnosis: Likely abdominal pain, constipation and small bowel obstruction Lab Data Attestation: I reviewed the patient's lab results. Result diagrams: 01/25/20 12:29 01/25/20 12:29 Labs: Lab Results 01/25/20 01/25/2001/24/20 Range/Units 12:29 12:29 12:29 WBC 16.9 H (4.5-11.0) X10^3/uL RBC 3.65 L (4.0-5.2) X10^6/uL Hgb 11.6 L (12.0-16.0) g/dL Hct 34.5 L (36-46) % MCV 94.4 (80-100) fL MCH 31.8 (26-34) PG MCHC 33.7 (30-36) % RDW 13.1 (11.6-14.8) % Plt Count 229 (150-400) X10^3/uL Neut % (Auto) 67.7 (50-75) % Lymph % (Auto) 19.7 L (25-40) % [place] % (Auto) 10.2 (3-14) % Eos % (Auto) 1.5 L (2-4) % Baso % (Auto) 0.9 (0-2) % Neut # (Auto) 37091 H (9153-9749) /uL Lymph # (Auto) 3300 (6264-1031) /uL [place] # (Auto) 1700 H (0-900) /uL Eos # (Auto) 200 (0-450) /uL Baso # (Auto) 100 (0-100) /uL PT 12.5 (10.1-12.7) SECONDS INR 1.1 (0.9-1.3) APTT 28 (26.4-36.2) SECONDS Sodium 133 L (137-145) mmol/L Potassium 4.1 (3.4-5.1) mmol/L Chloride 98 (98-107) mmol/L Carbon Dioxide 26 (22-32) mmol/L BUN 56 H (7-17) mg/dL Creatinine 1.60 H (0.52-1.04) mg/dL Estimated GFR 30.9 L (>60) mL/min BUN/Creatinine Ratio 35.0 H (6-22) Glucose 119 H (80-110) mg/dL Lactate (0.7-2.1) mmol/L Calcium 8.6 (8.4-10.2) mg/dL Total Bilirubin 1.1 (0.2-1.3) mg/dL AST 35 (14-36) IU/L ALT 31 (<35) IU/L Alkaline Phosphatase 84 (38-126) U/L Total Creatine Kinase 30 (30-135) U/L CK-MB (CK-2) TNP CK-MB (CK-2) Rel Index TNP Troponin I < 0.012 (0.01-0.034) ng/mL NT-Pro-B Natriuret Pep 104 (<450) pg/mL Total Protein 7.8 (6.3-8.2) g/dL Albumin 4.3 (3.5-5.0) g/dL Globulin 3.5 (1.7-4.1) g/dL Albumin/Globulin Ratio 1.2 (1.0-2.8) Amylase 41 (30-110) U/L Lipase 28 (23-300) U/L 01/25/20 Range/Units 12:29 WBC (4.5-11.0) X10^3/uL RBC (4.0-5.2) X10^6/uL Hgb (12.0-16.0) g/dL Hct (36-46) % MCV (80-100) fL MCH (26-34) PG MCHC (30-36) % RDW (11.6-14.8) % Plt Count (150-400) X10^3/uL Neut % (Auto) (50-75) % Lymph % (Auto) (25-40) % [place] % (Auto) (3-14) % Eos % (Auto) (2-4) % Baso % (Auto) (0-2) % Neut # (Auto) (2380-4381) /uL Lymph # (Auto) (9618-5036) /uL [place] # (Auto) (0-900) /uL Eos # (Auto) (0-450) /uL Baso # (Auto) (0-100) /uL PT (10.1-12.7) SECONDS INR (0.9-1.3) APTT (26.4-36.2) SECONDS Sodium (137-145) mmol/L Potassium (3.4-5.1) mmol/L Chloride (98-107) mmol/L Carbon Dioxide (22-32) mmol/L BUN (7-17) mg/dL Creatinine (0.52-1.04) mg/dL Estimated GFR (>60) mL/min BUN/Creatinine Ratio (6-22) Glucose (80-110) mg/dL Lactate 1.1 (0.7-2.1) mmol/L Calcium (8.4-10.2) mg/dL Total Bilirubin (0.2-1.3) mg/dL AST (14-36) IU/L ALT (<35) IU/L Alkaline Phosphatase (38-126) U/L Total Creatine Kinase (30-135) U/L CK-MB (CK-2) CK-MB (CK-2) Rel Index Troponin I (0.01-0.034) ng/mL NT-Pro-B Natriuret Pep (<450) pg/mL Total Protein (6.3-8.2) g/dL Albumin (3.5-5.0) g/dL Globulin (1.7-4.1) g/dL Albumin/Globulin Ratio (1.0-2.8) Amylase (30-110) U/L Lipase (23-300) U/L Point of care testing: Urine Dip Bedside Urine Glucose Negative Bedside Urine Bilirubin + 1 Bedside Urine Ketone - Negative Urine Specific [place] 1.020 Bedside Urine Occult Blood - Negative Bedside Urine pH 5.5 Bedside Urine Protein +/- 15 Bedside Urine Urobilinogen +/- 1mg Bedside Urine Nitrite - Negative Bedside Urine Leukocytes +++ [address] scan - head: Radiologist's Impression: [address] [place] [address] CT Scan Report Signed Patient: Olive Katz [facility]#: [id number] : 8Acct:[id number] Age/Sex: 79 / FDate of Service: 01/25/20 Loc: ED Accession Number: [id number] Procedure: CT head/brain wo con Ordering Provider: Heidi Mesa PROCEDURE: CT HEAD/BRAIN WO CON INDICATIONS: ground level fall TECHNIQUE: Noncontrast 4.5 mm thick angled axial sections acquired from the foramen magnum to the vertex, with coronal and sagittal reformats. For radiation dose reduction, the following was used: automated exposure control, adjustment of mA and/or kV according to patient size. COMPARISON: [facility], CT, CT CERVICAL SPINE WO CON, 01/25/2020, 11:50. FINDINGS: Image quality: Diagnostic, with note made of motion artifact. CSF spaces: Basal cisterns are patent. No extra-axial fluid collections. The ventricles are symmetric in size and shape. Brain: No intracranial bleeds or masses. There is cerebral volume loss for age, with resultant ventricular and sulcal prominence. There are periventricular and deep white matter chronic small vessel ischemic changes. There is intracranial internal carotid artery atherosclerosis. Skull and face: Calvarium and visualized facial bones appear intact, without suspicious lesions. Sinuses: Visualized sinuses and mastoids are clear. IMPRESSION: Unremarkable intracranial study, without acute intracranial hemorrhage. No displaced fractures can be seen. Dictated by: Lex Salmeron M.D. on 01/25/2020 at 11:07 Approved by: Lex Salmeron M.D. on 01/25/2020 at 11:12 CT - cervical spine: Radiologist's Impression: [address] [place] [address] CT Scan Report Signed Patient: Olive Katz [facility]#: [id number] : [id number]:[id number] Age/Sex: 79 / FDate of Service: 01/25/20 Loc: ED Accession Number: [id number] Procedure: CT cervical spine wo con Ordering Provider: Heidi Mesa PROCEDURE: CT CERVICAL SPINE WO CON INDICATIONS: ground level fall neck pain TECHNIQUE: Noncontrast 3 mm thick sections acquired from the skull base to the T4 level. Sagittal and coronal reformats were then constructed. For radiation dose reduction, the following was used: automated exposure control, adjustment of mA and/or kV according to patient size. COMPARISON: None. FINDINGS: Image quality: Excellent. Bones: No fractures or dislocations. Visualized superior ribs are intact. Mild, age-appropriate degenerative changes are seen. Soft tissues: Prevertebral soft tissues are normal in thickness. No paravertebral hematomas. No apical pneumothoraces. IMPRESSION: Negative for fracture. Normal cervical spine CT for age. Dictated by: Lex Salmeron M.D. on 01/25/2020 at 11:12 Approved by: Lex Salmeron M.D. on 01/25/2020 at 11:13 ECG Data Attestation: I personally reviewed and interpreted this ECG as follows: Interpretation: Sinus rhythm. Ventricular rate 88. QRS 134. QRS 80. viewed by Dr Rivera MDM Narrative Medical decision making narrative: The patient is an 79-year-old female who presents with a chief complaint of abdominal pain, nausea vomiting, stool changes that are consistent with her history of irritable bowel syndrome and previous presentations to the emergency department. Of note the patient reports syncope icing few days ago, hitting her head on a door and having neck pain. The she was placed in a C-collar given her midline cervical spine tenderness and scans were obtained of her head and neck. These came back negative. Given her syncope, an EKG was obtained as well as troponin. These came back negative. It was noted that the patient's creatinine has slightly increased from her previous visit, discussed with Dr. Rivera. The patient feels much improved after a single L fluid and doses Zofran is tolerating p.o. food and fluids. However given her pain, we did get a CT of her abdomen. Given her decreased renal function we are hesitant to use contrast, Radiology was contacted and they are able to verify the confined diverticulitis, colitis without contrast. Subsequently she had a CT abdomen pelvis with no contrast. This had no acute findings. I did attempt to contact her primary care provider for the patient however they are unable to be contacted. However she was made an appointment tomorrow with her PCP 2:45 p.m.. She is able to tolerate p.o. food and fluids, feels much better is requesting to go home. However I am concerned about her decreased renal function, and would like that to be monitored by her PCP. Patient has no questions or concerns upon discharge is stable on her feet ambulating and states understanding return precautions of inability keep down fluids or any acute concerns as well as follow-up with primary care provider. Patient has no questions or concerns upon discharge and states understanding of return precautions as well as follow-up care. <Elaina Rivera MD - Last Filed: 02/02/20 08:24> Lab Data Labs: Lab Results 01/25/20 01/25/20 01/25/20 Range/Units 12:29 12:29 12:29 WBC 16.9 H (4.5-11.0) X10^3/uL RBC 3.65 L (4.0-5.2) X10^6/uL Hgb 11.6 L (12.0-16.0) g/dL Hct 34.5 L (36-46) % MCV 94.4 (80-100) fL MCH 31.8 (26-34) PG MCHC 33.7 (30-36) % RDW 13.1 (11.6-14.8) % Plt Count 229 (150-400) X10^3/uL Neut % (Auto) 67.7 (50-75) % Lymph % (Auto) 19.7 L (25-40) % [place] % (Auto) 10.2 (3-14) % Eos % (Auto) 1.5 L (2-4) % Baso % (Auto) 0.9 (0-2) % Neut # (Auto) 67679 H (1662-7830) /uL Lymph # (Auto) 3300 (7879-3157) /uL [place] # (Auto) 1700 H (0-900) /uL Eos # (Auto) 200 (0-450) /uL Baso # (Auto) 100 (0-100) /uL PT 12.5 (10.1-12.7) SECONDS INR 1.1 (0.9-1.3) APTT 28 (26.4-36.2) SECONDS Sodium 133 L (137-145) mmol/L Potassium 4.1 (3.4-5.1) mmol/L Chloride 98 (98-107) mmol/L Carbon Dioxide 26 (22-32) mmol/L BUN 56 H (7-17) mg/dL Creatinine 1.60 H (0.52-1.04) mg/dL Estimated GFR 30.9 L (>60) mL/min BUN/Creatinine Ratio 35.0 H (6-22) Glucose 119 H (80-110) mg/dL Lactate (0.7-2.1) mmol/L Calcium 8.6 (8.4-10.2) mg/dL Total Bilirubin 1.1 (0.2-1.3) mg/dL AST 35 (14-36) IU/L ALT 31 (<35) IU/L Alkaline Phosphatase 84 (38-126) U/L Total Creatine Kinase 30 (30-135) U/L CK-MB (CK-2) TNP CK-MB (CK-2) Rel Index TNP Troponin I < 0.012 (0.01-0.034) ng/mL NT-Pro-B Natriuret Pep 104 (<450) pg/mL Total Protein 7.8 (6.3-8.2) g/dL Albumin 4.3 (3.5-5.0) g/dL Globulin 3.5 (1.7-4.1) g/dL Albumin/Globulin Ratio 1.2 (1.0-2.8) Amylase 41 (30-110) U/L Lipase 28 (23-300) U/L 01/25/20 Range/Units 12:29 WBC (4.5-11.0) X10^3/uL RBC (4.0-5.2) X10^6/uL Hgb (12.0-16.0) g/dL Hct (36-46) % MCV (80-100) fL MCH (26-34) PG MCHC (30-36) % RDW (11.6-14.8) % Plt Count (150-400) X10^3/uL Neut % (Auto) (50-75) % Lymph % (Auto) (25-40) % [place] % (Auto) (3-14) % Eos % (Auto) (2-4) % Baso % (Auto) (0-2) % Neut # (Auto) (1359-9757) /uL Lymph # (Auto) (9138-8348) /uL [place] # (Auto) (0-900) /uL Eos # (Auto) (0-450) /uL Baso # (Auto) (0-100) /uL PT (10.1-12.7) SECONDS INR (0.9-1.3) APTT (26.4-36.2) SECONDS Sodium (137-145) mmol/L Potassium (3.4-5.1) mmol/L Chloride (98-107) mmol/L Carbon Dioxide (22-32) mmol/L BUN (7-17) mg/dL Creatinine (0.52-1.04) mg/dL Estimated GFR (>60) mL/min BUN/Creatinine Ratio (6-22) Glucose (80-110) mg/dL Lactate 1.1 (0.7-2.1) mmol/L Calcium (8.4-10.2) mg/dL Total Bilirubin (0.2-1.3) mg/dL AST (14-36) IU/L ALT (<35) IU/L Alkaline Phosphatase (38-126) U/L Total Creatine Kinase (30-135) U/L CK-MB (CK-2) CK-MB (CK-2) Rel Index Troponin I (0.01-0.034) ng/mL NT-Pro-B Natriuret Pep (<450) pg/mL Total Protein (6.3-8.2) g/dL Albumin (3.5-5.0) g/dL Globulin (1.7-4.1) g/dL Albumin/Globulin Ratio (1.0-2.8) Amylase (30-110) U/L Lipase (23-300) U/L Point of care testing: Urine Dip Bedside Urine Glucose Negative Bedside Urine Bilirubin + 1 Bedside Urine Ketone - Negative Urine Specific [place] 1.020 Bedside Urine Occult Blood - Negative Bedside Urine pH 5.5 Bedside Urine Protein +/- 15 Bedside Urine Urobilinogen +/- 1mg Bedside Urine Nitrite - Negative Bedside Urine Leukocytes +++ 500 Esterase Discharge Plan Departure Patient Disposition: Home Clinical Impression: Dehydration Abdominal pain Qualifiers: Abdominal location: generalized Qualified Code(s): R10.84 - Generalized abdominal pain Nausea & vomiting Qualifiers: Vomiting type: unspecified Vomiting Intractability: non-intractable Qualified Code(s): R11.2 - Nausea with vomiting, unspecified Discharge Date/Time: 01/25/20 18:24 Instructions: DI for Dehydration -- Adult, DI for Abdominal Pain-Adult, Nausea and Vomiting-Adult Activity Restrictions/Additional Instructions: Thank you for trusting us with your care today As discussed, you have an appointment with Dr. Blank tomorrow. Please arrive at 2:45 p.m. As discussed please come back to the emergency department for any acute concerns such as inability keep down fluids. Please push fluids, take small sips frequently. Prescriptions: No Action polyethylene glycol 3350 [Miralax] 17 GM powder in packet 17 gm PO Q DAY PRN (Reason: Constipation) Qty: 0 RF: 0 cyclobenzaprine 5 mg tablet 5 mg PO BEDTIME PRN (Reason: muscle spasm) Qty: 90 RF: 1 acetaminophen-codeine [Tylenol-Codeine #3] 300-30 mg tablet 1 tab PO DAILY PRN (Reason: pain) Qty: 30 RF: 3 omeprazole 40 mg capsule,delayed release(DR/EC) 40 mg PO AC Qty: 90 RF: 1 amlodipine 2.5 mg tablet 2.5 mg PO QDAY Qty: 90 RF: 1 lisinopril-hydrochlorothiazide 20-25 mg tablet 1 tab PO DAILY Qty: 90 RF: 1 sucralfate 1 gram tablet 1 gram PO ONCE RF: 0 One Daily Women 50 Plus 1 tab PO DAILY RF: 0 Referrals: Oliver Blank MD [Primary Care Provider] - <Elaina Rivera MD - Last Filed: 02/02/20 08:24> Cosign ED Attending Cosignature Attestation: I was immediately available in the depart ment for consultation throughout this patient's visit. I agree with documentation as above. Elaina Rivera MD
--- NOTE | 2020-01-25 11:53 | DI.CT.S_ITS ---
PROCEDURE: CT HEAD/BRAIN WO CON INDICATIONS: ground level fall TECHNIQUE: Noncontrast 4.5 mm thick angled axial sections acquired from the foramen magnum to the vertex, with coronal and sagittal reformats. For radiation dose reduction, the following was used: automated exposure control, adjustment of mA and/or kV according to patient size. COMPARISON: [facility], CT, CT CERVICAL SPINE WO CON, 01/25/2020, 11:50. FINDINGS: Image quality: Diagnostic, with note made of motion artifact. CSF spaces: Basal cisterns are patent. No extra-axial fluid collections. The ventricles are symmetric in size and shape. Brain: No intracranial bleeds or masses. There is cerebral volume loss for age, with resultant ventricular and sulcal prominence. There are periventricular and deep white matter chronic small vessel ischemic changes. There is intracranial internal carotid artery atherosclerosis. Skull and face: Calvarium and visualized facial bones appear intact, without suspicious lesions. Sinuses: Visualized sinuses and mastoids are clear. IMPRESSION: Unremarkable intracranial study, without acute intracranial hemorrhage. No displaced fractures can be seen. Dictated by: Lex Salmeron M.D. on 01/25/2020 at 11:07 Approved by: Lex Salmeron M.D. on 01/25/2020 at 11:12
--- NOTE | 2020-01-25 12:28 | PC.NURSE ---
c collar cleared by Moshe
[2020-01-25] MEDS: SODIUM CHLORIDE 0.9% 1,000 ML 1000 ML IV (12:32)
[2020-01-25] MEDS: ONDANSETRON 4 MG/2 ML INJ IV (12:32)
[2020-01-25 12:33] LABS: Add Manual Diff / Slide Review NO; Basophils Absolute Auto 100 /uL (0-100); Basophils Percent Auto 0.9 % (0-2); Eosinophils Absolute Auto 200 /uL (0-450); Eosinophils Percent Auto 1.5 % (2-4); Hematocrit 34.5 % (36-46); Hemoglobin 11.6 g/dL (12.0-16.0); Lymphocytes Absolute Auto 3300 /uL (1100-4500); Lymphocytes Percent Auto 19.7 % (25-40); Mean Corpuscular HGB Conc 33.7 % (30-36); Mean Corpuscular Hemoglobin 31.8 PG (26-34); Mean Corpuscular Volume 94.4 fL (80-100); Monocytes Absolute Auto 1700 /uL (0-900); Monocytes Percent Auto 10.2 % (3-14); Neutrophils Absolute Auto 11500 /uL (1500-7000); Neutrophils Percent Auto 67.7 % (50-75); Platelet Count 229 X10^3/uL (150-400); Red Blood Cell Count 3.65 X10^6/uL (4.0-5.2); Red Cell Distribution Width 13.1 % (11.6-14.8); White Blood Cell Count 16.9 X10^3/uL (4.5-11.0)
[2020-01-25 12:41] LABS: INR 1.1 (0.9-1.3); Prothrombin Time 12.5 SECONDS (10.1-12.7)
[2020-01-25 12:43] LABS: PTT Partial Thromboplastin Tim 28 SECONDS (26.4-36.2)
[2020-01-25 12:45] LABS: Lactate (Lactic Acid) 1.1 mmol/L (0.7-2.1)
[2020-01-25 12:46] LABS: Alanine Aminotransferase 31 IU/L (<35); Albumin 4.3 g/dL (3.5-5.0); Albumin Globulin Ratio 1.2 (1.0-2.8); Alkaline Phosphatase 84 U/L (38-126); Amylase 41 U/L (30-110); Aspartate Aminotransferase 35 IU/L (14-36); Bilirubin Total 1.1 mg/dL (0.2-1.3); Blood Urea Nitrogen 56 mg/dL (7-17); Calcium 8.6 mg/dL (8.4-10.2); Carbon Dioxide 26 mmol/L (22-32); Chloride 98 mmol/L (98-107); Creatine Kinase 30 U/L (30-135); Estimated Glomerular Filt Rate 30.9 mL/min (>60); Globulin 3.5 g/dL (1.7-4.1); Glucose 119 mg/dL (80-110); HEMOLYSIS < 15 (0-50); Lipase 28 U/L (23-300); Potassium 4.1 mmol/L (3.4-5.1); Sodium 133 mmol/L (137-145); Total Protein 7.8 g/dL (6.3-8.2)
[2020-01-25 12:58] LABS: NT-proBNP (BNP-Adult 18+) 104 pg/mL (<450); Troponin I < 0.012 ng/mL (0.01-0.034)
--- NOTE | 2020-01-25 13:58 | DI.CT.S_ITS ---
PROCEDURE: CT ABDOMEN PELVIS WO CON INDICATIONS: lower left quad pain abd pain, rlq abd pain TECHNIQUE: Noncontrast 5 mm thick sections acquired from the diaphragms to the symphysis. 5 mm coronal and sagittal reformats were then performed. For radiation dose reduction, the following was used: automated exposure control, adjustment of mA and/or kV according to patient size. COMPARISON: [facility], CT, CT ABDOMEN PELVIS W CON, 11/13/2017, 11:06. [facility], CT, CT ABDOMEN PELVIS W CON, 12/31/2019, 16:00. FINDINGS: Image quality: Excellent. ABDOMEN: Lung bases: Lung bases are clear. Heart size is normal. Aortic valvular calcification. Breast calcifications. Small hiatal hernia. Solid organs: Liver is normal in size. Gallbladder is absent. Pancreas is atrophic. Spleen is normal in size. Splenic calcific calcifications. No adrenal nodules. Kidneys are normal in size, without hydronephrosis or nephrolithiasis. Small right kidney exophytic cyst. Peritoneum and bowel: No bowel obstruction. Prominent stool in the colon. No free fluid or air. Nodes and vessels: No retroperitoneal or mesenteric adenopathy by size criteria. Small noted adjacent to the splenic flexure is unchanged since 2018. Aorta and inferior vena cava are normal in caliber. Moderate calcified atherosclerotic plaque. Miscellaneous: Tiny periumbilical fat containing hernia. Left flank small intramuscular lipoma, unchanged. PELVIS: Genitourinary: Bladder wall thickness is normal. Uterus is absent. Miscellaneous: No inguinal hernias or adenopathy. Bones: No suspicious bony lesions. Prior L1 vertebroplasty. No acute fracture. IMPRESSION: 1. No acute inflammatory process identified. No free fluid. 2. Increased stool in the colon could be due to constipation. 3. Small hiatal hernia. Dictated by: Ortiz Montaño M.D. on 01/25/2020 at 13:55 Approved by: Ortiz Montaño M.D. on 01/25/2020 at 14:07
== END 2020-01-25 18:24 | disposition home or self-care (01) ==
PROVIDERS: Emergency Provider Nurse Practitioner Family; PCP Student in an Organized Health Care Education/Training Program
DX: R10.84 Generalized abdominal pain (principal); R11.2 Nausea with vomiting, unspecified; R19.7 Diarrhea, unspecified; E86.0 Dehydration
CPT/HCPCS: 36415; 70450; 72125; 74022; 74176; 80053; 81003; 82150; 82550; 83605; 83690; 83880; 84484; 85025; 85610; 85730; 93005; 96361; 96374; 99284; J2405

== ENCOUNTER → 2020-02-03 15:26 | Outpatient (CLI) | payer MEDICARE, SELFPAY ==
[2020-02-03 17:35] LABS: BUN Creatinine Ratio 18.7 (6-22); Blood Urea Nitrogen 17 mg/dL (7-17); Calcium 9.7 mg/dL (8.4-10.2); Carbon Dioxide 32 mmol/L (22-32); Chloride 99 mmol/L (98-107); Estimated Glomerular Filt Rate 59.3 mL/min (>60); Glucose 95 mg/dL (80-110); HEMOLYSIS < 15 (0-50); Potassium 4.6 mmol/L (3.4-5.1); Sodium 137 mmol/L (137-145)
== END ==
PROVIDERS: PCP Student in an Organized Health Care Education/Training Program; Referring Provider Student in an Organized Health Care Education/Training Program; Visit Provider Student in an Organized Health Care Education/Training Program
DX: N17.9 Acute kidney failure, unspecified (principal)
CPT/HCPCS: 36415; 80048

== ENCOUNTER → 2020-07-27 17:05 | Outpatient (CLI) | payer MEDICARE, SELFPAY | PROVIDERS: PCP Student in an Organized Health Care Education/Training Program; Referring Provider Student in an Organized Health Care Education/Training Program; Visit Provider Student in an Organized Health Care Education/Training Program | DX: R19.7 Diarrhea, unspecified (principal) | CPT/HCPCS: 87045; 87899 ==

== ENCOUNTER → 2021-06-02 11:15 | Outpatient (CLI) | payer MEDICARE, SELFPAY ==
--- NOTE | 2021-06-02 11:16 | DI.MRI.S_ITS ---
PROCEDURE: MR LUMBAR SPINE WO CON INDICATIONS: Lumbar radiculopathy TECHNIQUE: Noncontrast sagittal T1 spin echo and T2 fast echo, sagittal STIR, axial T1 and T2 fast spin echo through the lumbar spine. In cases with scoliosis, additional coronal T2 fast spin echo may be performed. COMPARISON: [facility], MR, L-SPINE WITHOUT CONTRAST, 01/24/2012, 7:30. [facility], MR, L-SPINE WITHOUT CONTRAST, 08/15/2015, 16:48. [facility], CT, CT ABDOMEN PELVIS WITH CONTRAST, 09/15/2020, 13:43. [facility], MR, L-SPINE WITHOUT CONTRAST, 02/15/2011, 17:48. FINDINGS: Image quality: Excellent. Alignment and Curvature: There is normal bony alignment. Bone Marrow: Marrow is of normal overall signal. No acute vertebral body compression fractures. There is a remote T12 fracture seen, with vertebroplasty cement. Spinal Cord: Conus medullaris terminates at the L1 level. Visualized cord demonstrates normal signal and size. Paraspinous Soft Tissues: No paravertebral masses. This patient has transitional lumbar anatomy. For the purposes of this examination, the level with the last well-developed disc space is considered to be L5-S1. By this numbering scheme, the L5 level is transitional and relatively highly sacralized. This is better seen by prior CT. T12-L1: Normal appearance. L1-L2: The disc height is well-preserved. Loss of disc signal is seen at this level. Mild generalized disc bulge is seen. There is minimal right-sided and no significant left-sided neural narrowing seen. No significant central canal narrowing is seen. L2-L3: The disc height is well-preserved. Loss of disc signal is seen at this level. Mild to moderate disc bulge is seen. Moderate facet joint hypertrophy is seen. Mild bilateral neural foraminal narrowing can be seen, right worse than left. Mild central canal narrowing is seen. When comparison is made with the prior images, these findings are similar. L3-L4: The disc height is well-preserved. Loss of disc signal is seen at this level. Mild generalized disc bulge is seen. At least moderate facet hypertrophy is seen. There is mild right-sided and xkyb-nv-kiktfygb left-sided neural foraminal narrowing seen. Mild central canal narrowing is seen. These imaging findings have progressed compared to the prior study. L4-L5: The disc height is well-preserved. Loss of disc signal is seen at this level. Mild generalized disc bulge is seen. Remote postoperative change is seen, with right hemilaminectomy. At least moderate facet hypertrophy is seen. Mild bilateral neural foraminal narrowing is seen. Mild central canal narrowing is seen. No significant change from the prior. L5-S1: There is a transitional, rudimentary disc at this level. No significant neural foraminal or central canal narrowing can be seen. IMPRESSION: Multiple levels of lumbar spine degenerative change are seen, which are similar to 2016, although slightly progressed at L3-L4 since that time. There is transitional lumbar anatomy, with a highly sacralized L5 level. Prior, stable T12 fracture, with vertebroplasty cement. Dictated by: Lex Salmeron M.D. on 06/02/2021 at 11:04 Approved by: Lex Salmeron M.D. on 06/02/2021 at 11:12
== END ==
PROVIDERS: PCP Student in an Organized Health Care Education/Training Program; Referring Provider Student in an Organized Health Care Education/Training Program; Visit Provider Student in an Organized Health Care Education/Training Program
DX: M47.26 Other spondylosis with radiculopathy, lumbar region (principal); M54.50 Low back pain, unspecified; G89.29 Other chronic pain
CPT/HCPCS: 72148

== ENCOUNTER → 2021-06-27 12:03 | Outpatient (CLI) | payer MEDICARE, SELFPAY | PROVIDERS: PCP Student in an Organized Health Care Education/Training Program; Referring Provider Student in an Organized Health Care Education/Training Program; Visit Provider Student in an Organized Health Care Education/Training Program | DX: M81.0 Age-related osteoporosis without current pathological fracture (principal); Z78.0 Asymptomatic menopausal state; K92.9 Disease of digestive system, unspecified; Z85.3 Personal history of malignant neoplasm of breast | CPT/HCPCS: 77080 ==

== ENCOUNTER → 2021-09-04 10:41 | Outpatient (CLI) | payer MEDICARE, SELFPAY ==
--- NOTE | 2021-09-04 10:44 | DI.RAD.S_ITS ---
PROCEDURE: XR LUMBAR SPINE MIN 4V INDICATIONS: BACK PAIN TECHNIQUE: 4 views of the lumbar spine were acquired, including bilateral oblique views. COMPARISON: [facility], , L-SPINE 2-3 VIEWS, 06/06/2015, 13:11. FINDINGS: Bones: 5 nonrib-bearing vertebrae are present. Minimal grade 1 anterolisthesis at L4-5, measuring less than 4 mm. No lumbar vertebral body compression fractures. Anterior compression deformity of T12 with evidence of kyphoplasty. Facet arthrosis, most prominent at L5-S1. Soft tissues: Overlying bowel gas pattern is normal. No suspicious soft tissue calcifications. Oblique images: No pars defects. IMPRESSION: Number spine degeneration as detailed above. Dictated by: Sergio Angel M.D. on 09/04/2021 at 12:29 Approved by: Sergio nAgel M.D. on 09/04/2021 at 12:36
== END ==
PROVIDERS: PCP Student in an Organized Health Care Education/Training Program; Referring Provider Physical Medicine & Rehabilitation; Visit Provider Physical Medicine & Rehabilitation
DX: M47.27 Other spondylosis with radiculopathy, lumbosacral region
CPT/HCPCS: 72110

== ENCOUNTER → 2021-09-25 13:17 | Outpatient (CLI) | payer MEDICARE, SELFPAY ==
[2021-09-25 15:18] LABS: COVID19 -Nasal RAPID Negative (Negative)
== END ==
PROVIDERS: PCP Student in an Organized Health Care Education/Training Program; Visit Provider Physical Medicine & Rehabilitation
DX: Z20.822 Contact with and (suspected) exposure to COVID-19 (principal)
CPT/HCPCS: 87635; C9803

== ENCOUNTER 2021-09-26 08:38 | Outpatient (CLI) | payer MEDICARE, SELFPAY ==
[2021-09-26] VITALS (8 sets, daily range): BP systolic 131–201; BP diastolic 55–81; PULSE 66–81; RESP 13–20; TEMP 36.8; O2SAT 96–100
--- NOTE | 2021-09-26 09:15 | DI.RAD.S_ITS ---
PROCEDURE: PAIN C/T INTERLAMINAR INJECT INDICATIONS: SPONDYLOSIS COMPARISON: [facility], MR, MR LUMBAR SPINE WO CON, 06/02/2021, 11:22. [facility], CR, XR LUMBAR SPINE MIN 4V, 09/04/2021, 10:57. FINDINGS: Fluoroscopic spot filming was performed to verify placement of spinal needles at the T11-T12 level(s), as labeled on the films. Appropriate location(s) of the needle tip(s) was confirmed by injection of iodinated contrast. T12 vertebroplasty cement can be seen. IMPRESSION: Intraprocedural examination within normal limits. Dictated by: Lex Salmeron M.D. on 09/26/2021 at 9:23 Approved by: Lex Salmeron M.D. on 09/26/2021 at 9:24
[2021-09-26] MEDS: MIDAZOLAM 2 MG/2 ML VIAL IV (09:56)
[2021-09-26] MEDS: BUPIVACAINE 0.25% (PF) VIAL 2 ML INJ (09:57)
[2021-09-26] MEDS: DEXAMETHASONE 10 MG/ML VIAL 30 MG INJ (09:58)
[2021-09-26] MEDS: IOPAMIDOL 15 ML VIAL 3 ML INJ (09:58)
--- NOTE | 2021-09-26 10:03 | PM.PROC.IR.1 ---
Date/Time/Diagnoses Date of procedure: 09/26/21 Time of procedure: 10:03 Pre-procedure diagnosis: Thoracic stenosis with HNP Post-procedure diagnosis: same Procedure Notes Procedure: Fluoroscopic guided, contrast controlled T11/12 translaminar epidural steroid injection with conscious sedation. Indications: Olive is referred by Dr. Blank for treatment of thoracic DDD/DJD with radiculopathy Physician: Terry Pillai Total Fluoroscopy time (seconds): 8 Total sedation minutes: 7 Complications: none Procedure in detail & Post-procedure care: DESCRIPTION OF PROCEDURE Fluoroscopic guided, contrast controlled T11/12 translaminar epidural steroid injection with conscious sedation. Following review of allergy review potential side effects and complications, including, but not necessarily limited to, infection, allergic reaction, local tissue breakdown, temporary as well as permanent nerve injury, stroke, paralysis and possible , the patient indicated that they understood and agreed to proceed. An informed consent document was signed by the patient, witnessed by the nurse, and placed in the patient's chart. Additionally other treatment options including modalities, medications and physical therapy were reviewed with the patient. After review of previous anaesthesic history and IV conscious sedation the patient was deemed safe to proceed with today's procedure with IV conscious sedation as ASA class II designation. Safety time-out was performed to confirm patient ID, procedure to be performed and site of procedure. IV sedation was accomplished with a combination of 2mg of Versed administered by the RN after DO order, titrated to patient comfort during the course of the procedure while the patient remained responsive to all verbal commands In the prone position, following sterile prep and drape of the thoracic region the T11/12 translaminar space was identified fluoroscopically. The skin was anesthetized via 25 gauge 1.5inch needle with 1% lidocaine solution. At this point a 22gauge epidural needle was atraumatically introduced and advanced under fluoroscopic guidance into the region of the T11/12 translaminar space depth was confirmed on lateral view. Radiographic data, including multiple fluoroscopic views of the thoracic spine, reveals spinal needle at the T11/12 translaminar space. Lateral views then showed the placement of the needle in the epidural space. Subsequent view show contrast material flowing superiorly and inferiorly in the epidural space. No vascular or intrathecal uptake is observed. At this point using loss of resistance technique with saline and the epidural space was entered. This was confirmed followed negative aspiration and injection of approximately 1.5cc of Isovue 200 showed excellent epidural flow without vascular or intrathecal uptake. At this point, 1 cc of 1% lidocaine solution was admitted as a test dose and the patient was observed for an appropriate period of time without signs or symptoms of complications, including abdominal pain, shortness of breath, bilateral upper and lower extremity weakness, nausea and vomiting, prior to steroid injection. Subsequently, 3cc or 30mg of dexamethasone was then injected without incident. The patient tolerated the procedure well without signs of complications and subsequently was transferred to the recovery room for further monitoring. The patient was then transferred to the recovery area with their observed for an appropriate time after the injection. Patient reported a VAS score of 7 prior to the procedure and post-procedure VAS of 2.
== END 2021-09-26 10:29 | disposition home or self-care (01) ==
LOC: RAD 08:40
PROVIDERS: PCP Student in an Organized Health Care Education/Training Program; Referring Provider Physical Medicine & Rehabilitation; Visit Provider Physical Medicine & Rehabilitation
DX: M48.04 Spinal stenosis, thoracic region (principal); M51.14 Intervertebral disc disorders with radiculopathy, thoracic region
CPT/HCPCS: 62321; J1100; J2250

== ENCOUNTER → 2021-12-05 13:21 | Outpatient (CLI) | payer MEDICARE, SELFPAY ==
--- NOTE | 2021-12-05 | DI.MG.S_ITS ---
BILATERAL DIGITAL DIAGNOSTIC MAMMOGRAM 3D/2D: 12/05/2021 CLINICAL: Breast pain. .Breast cancer. Family history of breast cancer. Comparison is made to exams dated: 04/24/2013 mammogram, 04/14/2012 mammogram, 04/11/2011 mammogram, and 06/16/2007 mammogram - [facility]. The tissue of both breasts is heterogeneously dense. This may lower the sensitivity of mammography. There are benign calcifications in both breasts. There also are benign vascular calcifications in both breasts. No significant masses, calcifications, or other findings are seen in either breast. No abnormality which corresponds with the area of pain is identified. IMPRESSION: BENIGN There is no abnormality seen in either breast to correspond with the diffuse area of clinical concern and pain, however, clinical followup is recommended. There is no mammographic evidence of malignancy. Return to annual mammogram screening schedule is recommended. Based on the Tyrer Cuzick model (a risk assessment model) the patient's lifetime risk is 0.3% and her 10 year risk is 0.0%. According to the ACR, ACS, and NCCN guidelines, an annual breast MRI exam along with mammogram is recommended if the patient's lifetime risk is 20% or greater. This exam was interpreted at Station ID: [id number]. NOTE: For mammograms, a report in lay terms will be sent to the patient. Approximately 15% of breast malignancies will not be visualized mammographically. In the management of a palpable breast mass, a negative mammogram must not discourage biopsy of a clinically suspicious lesion. Electronically Signed By: Juan Carlos Fang acr/:12/05/2021 14:41:00 Entry: - 12/06/2021 13:40:28 letter sent: Normal Exam ACR BI-RADS Category 2: Benign Finding(s) [id number]
== END ==
PROVIDERS: PCP Student in an Organized Health Care Education/Training Program; Referring Provider Student in an Organized Health Care Education/Training Program; Visit Provider Student in an Organized Health Care Education/Training Program
DX: N64.4 Mastodynia; Z85.3 Personal history of malignant neoplasm of breast; Z80.3 Family history of malignant neoplasm of breast
CPT/HCPCS: 77066; G0279

== ENCOUNTER → 2022-01-08 11:18 | Outpatient (CLI) | payer MEDICARE, SELFPAY ==
--- NOTE | 2022-01-08 11:21 | DI.RAD.S_ITS ---
PROCEDURE: XR CERVICAL SPINE 4V OR 5V INDICATIONS: Cervical radiculopathy TECHNIQUE: 5 views of the cervical spine acquired. COMPARISON: None. FINDINGS: Bones: Trace anterolisthesis of C3 on C4. Overall straightening of the normal cervical lordosis. Mild to moderate overall spondylosis, with facet arthropathy and disc space height loss. Atlantoaxial alignment is maintained on the odontoid view. No high-grade foraminal narrowing on oblique views. Soft tissues: No prevertebral soft tissue swelling. IMPRESSION: Qbuu-om-ksjvczgh spondylotic changes. No high-grade neural foraminal narrowing on oblique views. Straightening of the normal cervical lordosis with trace anterolisthesis of C3 on C4. Dictated by: Emil Layton M.D. on 01/08/2022 at 13:05 Approved by: Emil Layton M.D. on 01/08/2022 at 13:06
--- NOTE | 2022-01-08 11:21 | DI.MRI.S_ITS ---
PROCEDURE: MR CERVICAL SPINE WO CON INDICATIONS: Cervical radiculopathy TECHNIQUE: Noncontrast sagittal T1 spin echo and T2 fast spin echo, sagittal STIR, foraminal oblique sagittal T2 fast spin echo, and axial gradient echo or T2 fast spin echo through the cervical spine. COMPARISON: [facility], CR, XR CERVICAL SPINE 4V OR 5V, 01/08/2022, 11:23. M[facility] With [facility], CT, CT CERVICAL SPINE WO CON, 01/25/2020, 11:50. FINDINGS: Image quality: This examination is limited by involuntary motion artifact. Alignment and Curvature: There is normal bony alignment. Bone Marrow: Marrow demonstrates normal overall signal. Spinal Cord: Visualized spinal cord has normal size and signal. No cerebellar tonsillar herniation. Paraspinous Soft Tissues: No paravertebral masses. Prevertebral soft tissues are normal in thickness. C2-C3: The disc height is well-preserved. Loss of disc signal is seen at this level. Moderate generalized disc osteophyte complex is seen. Moderate right-sided and at least moderate left-sided neural foraminal narrowing can be seen. No significant central canal narrowing is seen. C3-C4: The disc height is well-preserved. Loss of disc signal is seen at this level. Moderate generalized disc osteophyte complex is seen. At least moderate facet hypertrophy is seen. There is at least moderate bilateral neural foraminal narrowing seen. Mild central canal narrowing is seen. C4-C5: The disc height is well-preserved. Loss of disc signal is seen at this level. Moderate generalized disc osteophyte complex is seen. There is a central disc osteophyte protrusion seen, as on series 3, images 22 and 23. There is at least moderate right-sided and arsw-[id number] left-sided facet hypertrophy. There is moderate to severe right-sided and at least moderate left-sided neural foraminal narrowing. Moderate central canal narrowing is seen. There is associated mass effect upon the ventral spinal cord. C5-C6: The disc height is well-preserved. Loss of disc signal is seen at this level. Moderate disc osteophyte complex is seen, with a central disc osteophyte protrusion, as on series 3, image 26. Moderate facet joint hypertrophy is seen. There is moderate to severe bilateral neural foraminal narrowing seen. At least moderate central canal narrowing is seen, with associated ventral cord flattening. C6-C7: Mild loss of disc height is seen. Loss of disc signal is seen. Moderate disc osteophyte complex is seen, with a central disc osteophyte protrusion. Moderate bilateral neural foraminal narrowing is seen. Moderate to severe bilateral neural foraminal narrowing can be seen, right worse than left. Moderate central canal narrowing is seen. There is associated mass effect upon the ventral spinal cord. C7-T1: The disc height is well-preserved. Loss of disc signal is seen at this level. Moderate generalized disc osteophyte complex is seen. There is moderate bilateral neural foraminal narrowing seen. No significant central canal narrowing is seen. IMPRESSION: Multiple levels of cervical spine degenerative change are seen, which are overall worst at C5-C6 and C6-C7. Dictated by: Lex Salmeron M.D. on 01/08/2022 at 13:49 Approved by: Lex Salmeron M.D. on 01/08/2022 at 13:54
== END ==
PROVIDERS: PCP Student in an Organized Health Care Education/Training Program; Referring Provider Physical Medicine & Rehabilitation; Visit Provider Physical Medicine & Rehabilitation
DX: M47.22 Other spondylosis with radiculopathy, cervical region (principal)
CPT/HCPCS: 72050; 72141

== ENCOUNTER 2022-02-27 09:31 | Outpatient (CLI) | payer MEDICARE, SELFPAY ==
[2022-02-27] VITALS (8 sets, daily range): BP systolic 120–220; BP diastolic 53–94; PULSE 68–80; RESP 14–22; TEMP 37.1; O2SAT 94–99
--- NOTE | 2022-02-27 09:32 | DI.RAD.S_ITS ---
PROCEDURE: PAIN C/T INTERLAMINAR INJECT INDICATIONS: SPINAL STENOSIS COMPARISON: [facility], , PAIN C/T INTERLAMINAR INJECT, 09/26/2021, 9:54. FINDINGS: Fluoroscopic spot filming was performed to verify placement of a spinal needle at the C7-T1 level, as labeled on the films. Appropriate location of the needle tip was confirmed by injection of iodinated contrast. IMPRESSION: Intraprocedural examination within normal limits. Dictated by: Lex Salmeron M.D. on 02/27/2022 at 14:35 Approved by: Lex Salmeron M.D. on 02/27/2022 at 14:35
[2022-02-27] MEDS: MIDAZOLAM 2 MG/2 ML VIAL IV (10:37)
[2022-02-27] MEDS: BUPIVACAINE 0.25% (PF) VIAL 2 ML INJ (10:43)
[2022-02-27] MEDS: DEXAMETHASONE 10 MG/ML VIAL 30 MG INJ (10:43)
[2022-02-27] MEDS: IOPAMIDOL 15 ML VIAL 3 ML INJ (10:43)
--- NOTE | 2022-02-27 10:51 | P.PCN_ITS ---
Date/Time/Diagnoses Date of procedure: 02/27/22 Time of procedure: 10:51 Pre-procedure diagnosis: 1. CERVICAL STENOSIS, 2. CERVICAL HNP WITH UPPER EXTREMITY RADICULAR FEATURES Procedure Notes Procedure: FLUORSCOPICALLY GUIDED CONTRAST CONTROLLED INTERLAMINAR EPIDURAL STEROID INJECTION - C7/T1 TL ARTHUR Indications: Olive is referred by Dr. Blank for treatment of Cervical Stenosis. Physician: Terry Pillai Total Fluoroscopy time (seconds): 24 Total sedation minutes: 9 Complications: none Procedure in detail & Post-procedure care: DESCRIPTION OF PROCEDURE Following review of allergy and review of potential side effects and com plications, including, but not necessarily limited to, infection, allergic reaction, local tissue breakdown, temporary as well as permanent nerve injury, stroke, paralysis, and possible , the patient indicated that patient understood and agreed to proceed. An informed consent document was signed by the patient, witnessed by a nurse, and placed in the patient's chart. Additionally, other treatment options including modalities, medications, and physical therapy were reviewed with the patient. After review of previous anaesthesic history and IV conscious sedation the patient was deemed safe to proceed with todays procedure with IV conscious sedation as ASA class II designation. Safety time-out was performed to confirm patient ID, procedure to be performed and site of procedure. IV sedation was accomplished with a combination of 2mg of Versed administered by the RN after DO order, titrated to patient comfort during the course of the procedure while the patient remained responsive to all verbal commands. In the prone position, following sterile prep and drape of the cervical region, the C7/T1 translaminar space was identified fluoroscopically. The skin was anesthetized via a 25-gauge 1.5-inch needle with 1% lidocaine solution. At this point, a 25-gauge, 2.5-inch short bevel spinal needle was atraumatically introduced and advanced under fluoroscopic guidance into epidural space at the C7/T1 translaminar space. Depth was confirmed on lateral view. Radiological data, including multiple fluoroscopic views of the cervical spine, reveal a spinal needle at the C7/T1 translaminar space. Lateral views then show placement of the needle in the epidural space. Subsequent views show contrast material flowing superiorly and inferiorly in the epidural space. DSA fluoroscopy with live contrast injection, once again, confirmed no vascular or intrathecal uptake. At this point, using loss of resistance technique with saline and air, the epidural space was entered. Following negative aspiration, injection of approximately 1.5 cc of Isovue-200 with live fluoroscopy in the AP view confirmed epidural flow in the epidural space without vascular or intrathecal uptake observed. Subsequently, a test dose of 1cc of 1% lidocaine solution was injected and patient was observed for two minutes without signs or symptoms of complications, including abdominal pain, shortness of breath, bilateral upper or lower extremity weakness, nausea and vomiting, prior to steroid injection. At this point, 3cc or 30mg of dexamethasone was then injected without incident. The patient tolerated the procedure well without signs or symptoms of complications prior to transfer to the recovery area for further monitoring The patient was then transferred to the recovery area where they were observed for an appropriate period of time after the injection. The patient reported a VAS score of 6 prior to the procedure and a post-procedure VAS of 0 POST OP INSTRUCTIONS The patient was provided a Pain Log to continue to record the patient's response to the target-specific procedure prior to the patient's follow-up visit with the referring physician. Additionally, specific post-injection care instructions and a contact number to our office were provided if concerns arise regarding possible complications associated with the procedure are suspected.
== END 2022-02-27 11:15 | disposition home or self-care (01) ==
LOC: RAD 09:31
PROVIDERS: PCP Student in an Organized Health Care Education/Training Program; Referring Provider Physical Medicine & Rehabilitation; Visit Provider Physical Medicine & Rehabilitation
DX: M48.02 Spinal stenosis, cervical region (principal); M50.13 Cervical disc disorder with radiculopathy, cervicothoracic region
CPT/HCPCS: 62321; J1100; J2250; J3490

== ENCOUNTER 2022-12-11 08:44 | Outpatient (CLI) | payer MEDICARE, SELFPAY ==
[2022-12-11] VITALS (9 sets, daily range): BP systolic 142–226; BP diastolic 56–95; PULSE 66–77; RESP 14–18; TEMP 36.8; O2SAT 97–100
--- NOTE | 2022-12-11 08:45 | DI.RAD.S_ITS ---
PROCEDURE: PAIN C/T INTERLAMINAR INJECT INDICATIONS: SPINAL STENOSIS COMPARISON: [facility], , PAIN C/T INTERLAMINAR INJECT, 02/27/2022, 10:38. FINDINGS: Fluoroscopic spot filming was performed to verify placement of spinal needles at the C7/T1 level(s), as labeled on the films. IMPRESSION: Fluoroscopic imaging utilized during cervical spine epidural steroid injection Dictated by: Ted Peter M.D. on 12/11/2022 at 11:12 Approved by: Ted Peter M.D. on 12/11/2022 at 11:13
[2022-12-11] MEDS: MIDAZOLAM 2 MG/2 ML VIAL IV (09:42)
[2022-12-11] MEDS: BUPIVACAINE 0.25% (PF) VIAL 2 ML SUBCUT (09:47)
[2022-12-11] MEDS: DEXAMETHASONE 10 MG/ML VIAL 30 MG INJ (09:47)
[2022-12-11] MEDS: IOPAMIDOL 15 ML VIAL 3 ML INJ (09:48)
--- NOTE | 2022-12-11 10:00 | P.PCN_ITS ---
Date/Time/Diagnoses Date of procedure: 12/11/22 Time of procedure: 10:00 Pre-procedure diagnosis: 1. CERVICAL STENOSIS, 2. CERVICAL HNP WITH UPPER EXTREMITY RADICULAR FEATURES Procedure Notes Procedure: FLUORSCOPICALLY GUIDED CONTRAST CONTROLLED INTERLAMINAR EPIDURAL STEROID INJECTION - C7/T1 TL ARTHUR Indications: Olive is referred by Dr. Blank for treatment of Cervical Stenosis. Physician: Terry Pillai Total Fluoroscopy time (seconds): 26 Total sedation minutes: 14 Complications: none Procedure in detail & Post-procedure care: DESCRIPTION OF PROCEDURE Following review of allergy and review of potential side effects and co mplications, including, but not necessarily limited to, infection, allergic reaction, local tissue breakdown, temporary as well as permanent nerve injury, stroke, paralysis, and possible , the patient indicated that patient understood and agreed to proceed. An informed consent document was signed by the patient, witnessed by a nurse, and placed in the patient's chart. Additionally, other treatment options including modalities, medications, and physical therapy were reviewed with the patient. After review of previous anaesthesic history and IV conscious sedation the patient was deemed safe to proceed with todays procedure with IV conscious sedation as ASA class II designation. Safety time-out was performed to confirm patient ID, procedure to be performed and site of procedure. IV sedation was accomplished with a combination of 2mg of Versed administered by the RN after DO order, titrated to patient comfort during the course of the procedure while the patient remained responsive to all verbal commands. In the prone position, following sterile prep and drape of the cervical region, the C7/T1 translaminar space was identified fluoroscopically. The skin was anesthetized via a 25-gauge 1.5-inch needle with 1% lidocaine solution. At this point, a 25-gauge, 2.5-inch short bevel spinal needle was atraumatically introduced and advanced under fluoroscopic guidance into epidural space at the C7/T1 translaminar space. Depth was confirmed on lateral view. Radiological data, including multiple fluoroscopic views of the cervical spine, reveal a spinal needle at the C7/T1 translaminar space. Lateral views then show placement of the needle in the epidural space. Subsequent views show contrast material flowing superiorly and inferiorly in the epidural space. DSA fluorosco py with live contrast injection, once again, confirmed no vascular or intrathecal uptake. At this point, using loss of resistance technique with saline and air, the epidural space was entered. Following negative aspiration, injection of approximately 1.5 cc of Isovue-200 with live fluoroscopy in the AP view confirmed epidural flow in the epidural space without vascular or intrathecal uptake observed. Subsequently, a test dose of 1cc of 1% lidocaine solution was injected and patient was observed for two minutes without signs or symptoms of complications, including abdominal pain, shortness of breath, bilateral upper or lower extremity weakness, nausea and vomiting, prior to steroid injection. At this point, 3cc or 30mg of dexamethasone was then injected without incident. The patient tolerated the procedure well without signs or symptoms of complications prior to transfer to the recovery area for further monitoring The patient was then transferred to the recovery area where they were observed for an appropriate period of time after the injection. The patient reported a VAS score of 7 prior to the procedure and a post-procedure VAS of 0 POST OP INSTRUCTIONS The patient was provided a Pain Log to continue to record the patient's response to the target-specific procedure prior to the patient's follow-up visit with the referring physician. Additionally, specific post-injection care instructions and a contact number to our office were provided if concerns arise regarding possible complications associated with the procedure are suspected.
== END 2022-12-11 10:20 | disposition home or self-care (01) ==
LOC: RAD 08:44
PROVIDERS: PCP Student in an Organized Health Care Education/Training Program; Referring Provider Physical Medicine & Rehabilitation; Visit Provider Physical Medicine & Rehabilitation
DX: M48.02 Spinal stenosis, cervical region (principal); M50.13 Cervical disc disorder with radiculopathy, cervicothoracic region
CPT/HCPCS: 62321; 99152; J1100; J2250; J3490

== ENCOUNTER 2023-02-07 05:41 | Inpatient (IN) | payer MEDICARE, SELFPAY ==
[2023-02-07] VITALS (25 sets, daily range): BP systolic 107–205; BP diastolic 46–90; PULSE 80–102; RESP 12–20; TEMP 35.9–37.5; O2SAT 85–100; BMI 24.9
--- NOTE | 2023-02-07 | DI.RAD.S_ITS ---
PROCEDURE: XR HIP W PEL IF DONE RT 2V INDICATIONS: HIP TECHNIQUE: AP pelvis and lateral view of the right hip acquired. COMPARISON: [facility], CR, XR HIP W PEL IF DONE RT 2V, 02/07/2023, 16:16. FINDINGS: Bones: Patient is status post right hip arthroplasty, with hardware components in expected positions. The hip joint appears congruent. The visualized bony structures appear intact. Soft tissues: Overlying postoperative changes are noted. No suspicious soft tissue densities. IMPRESSION: Expected postoperative appearance of right hip arthroplasty with prosthesis in appropriate position. Dictated by: Tamia Marc M.D. on 02/07/2023 at 20:22 Approved by: Tamia Marc M.D. on 02/07/2023 at 20:23
--- NOTE | 2023-02-07 05:48 | DI.RAD.S_ITS ---
PROCEDURE: XR HIP W PEL IF DONE RT 2V INDICATIONS: fall with R hip pain TECHNIQUE: AP pelvis with lateral view(s) of the right hip(s). COMPARISON: None. FINDINGS: Bones: There is a mildly displaced transverse subcapital right femoral neck fracture. Pelvic ring appears intact. No suspicious bony lesions. Soft tissues: The visualized bowel gas pattern is normal. No suspicious soft tissue calcifications. IMPRESSION: Mildly displaced right subcapital femoral neck fracture. No significant discrepancy with the night coordinator radiology preliminary report. Dictated by: Skip Hernández M.D. on 02/07/2023 at 9:10 Approved by: Skip Hernández M.D. on 02/07/2023 at 9:12
--- NOTE | 2023-02-07 06:00 | DI.CT.S_ITS ---
PROCEDURE: CT PEL WO CON INDICATIONS: R hip pain TECHNIQUE: Noncontrast 3 mm axial sections acquired through the bony pelvis, with coronal and sagittal reformatting. COMPARISON: [facility], MR, MR LUMBAR SPINE WO CON, 06/02/2021, 11:22. [facility], CR, XR LUMBAR SPINE MIN 4V, 09/04/2021, 10:57. [facility], CR, XR HIP W PEL IF DONE RT 2V, 02/07/2023, 5:46. FINDINGS: Image quality: Excellent. Bones: There is right femoral neck fracture with impaction and angulation. The pelvic rings are intact. Mild compression fracture of L4, new since 07/07/2021. Moderate severe facet arthropathy in the lower lumbar spine. Osteopenia.. Soft tissues: No soft tissue mass or large hematoma. Urinary bladder is distended. IMPRESSION: 1. Right femoral neck fracture with impaction and angulation. 2. Mild L4 compression fracture, new since 07/07/2021. 3. Osteopenia. No significant discrepancy with the overnight stocker radiology preliminary report. Dictated by: Viktor Bales M.D. on 02/07/2023 at 8:08 Approved by: Viktor Bales M.D. on 02/07/2023 at 8:13
--- NOTE | 2023-02-07 06:01 | DI.CT.S_ITS ---
PROCEDURE: CT HEAD/BRAIN WO CON INDICATIONS: fall with head injury TECHNIQUE: Noncontrast 4.5 mm thick angled axial sections acquired from the foramen magnum to the vertex, with coronal and sagittal reformats. For radiation dose reduction, the following was used: automated exposure control, adjustment of mA and/or kV according to patient size. COMPARISON: [facility], CT, CT HEAD/BRAIN WO CON, 01/25/2020, 11:50. FINDINGS: Image quality: Excellent. CSF spaces: Basal cisterns are patent. No extra-axial fluid collections. The ventricles are symmetric in size and shape. Brain: No intracranial bleeds or masses. There is cerebral volume loss for age, with resultant ventricular and sulcal prominence. There are periventricular and deep white matter chronic small vessel ischemic changes. There is intracranial internal carotid artery atherosclerosis. Skull and face: Calvarium and visualized facial bones appear intact, without suspicious lesions. Sinuses: Visualized sinuses and mastoids are clear. IMPRESSION: 1. No acute intracranial abnormalities. 2. Cerebral volume loss and chronic microvascular ischemic changes. No significant discrepancy with the freelance operator radiology preliminary report. Dictated by: Viktor Bales M.D. on 02/07/2023 at 7:54 Approved by: Viktor Bales M.D. on 02/07/2023 at 7:55
--- NOTE | 2023-02-07 06:05 | ED_ITS ---
HPI - Fall <Gilson Palomo DO - Last Filed: 02/08/23 02:19> General Chief Complaint: Trauma Stated Complaint: fall and bonked head Time Seen by Provider: 02/07/23 05:48 Source: patient and EMS Mode of arrival: EMS History of Present Illness HPI Narrative: 82-year-old female nonsmoker with history of hypertension, cervical radiculopathy presents by EMS for evaluation of a ground level fall with right hip injury. She lives at home and takes care of her sick . He was in the bathroom this morning and became unsteady and was starting to fall, he fell into her which caused her to fall backwards, landing on her hip and striking her head. She does not take blood thinners, denies any loss of consciousness or neurologic symptoms such as blurred vision or trouble with speech. She denies any episodes of vomiting and has no neck pain. Her primary complaint is of right hip pain that is significantly worse with any motion or palpation. She is unable to stand given her pain. EMS presents under these circumstances and she is activated as a modified trauma Related Data Home Medications Medication Instructions Recorded Confirmed polyethylene glycol 3350 17 gram 17 gm PO Q DAY PRN Constipation ##0 12/22/15 02/07/23 oral powder packet (Miralax) One Daily Women 50 Plus 1 tab PO DAILY 11/13/17 02/07/23 dicyclomine 20 mg tablet 20 mg PO DAILY 01/11/23 02/07/23 Previous Rx's Medication Instructions Recorded omeprazole 40 mg capsule,delayed 40 mg PO DAILY #90 caps 04/30/22 release lisinopril 20 1 tab PO DAILY #90 tabs 02/04/23 mg-hydrochlorothiazide 25 mg tablet Allergies Allergy/AdvReac Type Severity Reaction Status Date / Time prochlorperazine Allergy Severe lock jaw Verified 02/07/23 13:21 [PROCHLORPERAZINE] type symptoms amoxicillin [From AUGMENTIN] AdvReac Intermediate Nausea and Verified 02/07/23 13:21 vomitting. clavulanic acid AdvReac Intermediate n&v Verified 02/07/23 13:21 [From AUGMENTIN] Review of Systems <DO Neeta Johnson Last Filed: 02/08/23 02:19> Review of Systems Narrative: GENERAL: Denies chills, fatigue, malaise, fever, sweats. HEENT: Denies sinus pain, ear pain, sore throat, difficulty swallowing, dizziness. RESPIRATORY: Denies dyspnea, cough, wheezing, hemoptysis, sputum. CARDIOVASCULAR: Denies chest pain, palpitations, orthopnea, edema, GASTROINTESTINAL: Denies nausea, vomiting, abdominal pain, diarrhea, constipation, melena. : Denies dysuria, frequency, incontinence, hematuria, urinary retention. MUSCULOSKELETAL: See HPI SKIN: Denies rash, skin lesions, or other NEUROLOGIC: Denies weakness, headache, numbness, change in speech, confusion, seizures, incoordination. PSYCHIATRIC: No concerning psychosocial issues. 12 point review of systems is negative except for those stated above Patient History <Gilson Palomo DO - Last Filed: 02/08/23 02:19> Medical History Breast cancer (2001) Cervical radiculopathy Chickenpox (Unknown) Chronic back pain (1999) Colitis (1979) Fibromyalgia (12/04/01) GERD (gastroesophageal reflux disease) (1979) History of malignant neoplasm of breast (12/22/15) Irritable bowel syndrome without diarrhea (12/22/15) Kidney stones (1989) Measles (Unknown) Medicare annual wellness visit, subsequent Midline low back pain without sciatica (12/22/15) Mumps (Unknown) Osteoporosis (05/2017) Radiculopathy, thoracic region Sleep apnea (2009) 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 Social History marital status: household members: spouse housing: house Smoking Status: Never smoker alcohol intake: never Smoking Status: Never smoker alcohol intake frequency: holidays/special occasions only Substance Use Type: does not use Exam <Gilson Palomo DO - Last Filed: 02/08/23 02:19> Narrative Exam Narrative: GENERAL: [82] year old patient appears stated age. Well-developed patient, in mild distress. GCS 15 HEAD: Contusion to occiput, no laceration or evidence of depressed skull fracture EYES: Pupils equal round and reactive. No hyphema Extraocular motions intact. No scleral icterus. No injection or drainage. ENT: Nose without bleeding, purulent drainage. No nasal septal hematoma Throat without erythema, tonsillar hypertrophy or exudate. Airway patent. NECK: Trachea midline. Non tender CARDIOVASCULAR: Regular rate and rhythm without murmurs, gallops, or rubs. RESPIRATORY: Clear to auscultation. Breath sounds equal bilaterally. No wheezes, rales, or rhonchi. GASTROINTESTINAL: Abdomen soft, non-tender, nondistended. EXTREMITIES: Severe right hip pain to palpation, significantly limited range of motion secondary to pain, likely some mild shortening and external rotation, this is closed, isolated and neurovascularly intact BACK: Nontender without deformity or crepitance. No flank tenderness. NEURO: AOx3. SKIN: No rash or erythema of visible areas Initial Vital Signs Initial Vital Signs: Vital Signs Temperature 96.9 F L 02/07/23 05:40 Pulse Rate 87 02/07/23 05:40 Respiratory Rate 18 02/07/23 05:40 Blood Pressure 205/90 H 02/07/23 05:40 Pulse Oximetry 99 02/07/23 05:40 Oxygen Delivery Method Room Air 02/07/23 05:40 <Cristian Greco DO - Last Filed: 02/07/23 07:34> Initial Vital Signs Initial Vital Signs: Vital Signs Temperature 96.9 F L 02/07/23 05:40 Pulse Rate 87 02/07/23 05:40 Respiratory Rate 18 02/07/23 05:40 Blood Pressure 205/90 H 02/07/23 05:40 Pulse Oximetry 99 02/07/23 05:40 Oxygen Delivery Method Room Air 02/07/23 05:40 Course <Gilson Palomo DO - Last Filed: 02/08/23 02:19> Orders Ordered: Acetaminophen (Acetaminophen 325 Mg Tablet) 650 mg PO Q6H PRN PRN Reason: Fever/Mild Pain (1-3) Aspirin (Aspirin Ec 81 Mg Tablet) 81 mg PO BID BARBIE Last Admin: 02/07/23 20:25 Dose: 81 mg Documented By: MS Hydromorphone HCl (Hydromorphone 0.5 Mg Inj) 0.5 mg IV Q2H PRN PRN Reason: Pain, Severe (7-10) Last Admin: 02/07/23 09:35 Dose: 0.5 mg Documented By: MARYLIN Hydromorphone HCl (Hydromorphone 1 Mg Inj) 0 mg IV Q5MIN PRN PRN Reason: Pain, Moderate (4-6) Last Admin: 02/07/23 18:13 Dose: 0.25 mg Documented By: Admin: 02/07/23 18:07 Dose: 0.25 mg Documented By: Admin: 02/07/23 17:59 Dose: 0.25 mg Documented By: Admin: 02/07/23 17:54 Dose: 0.25 mg Documented By: BETHANY Lactated Ringer's (Lactated Ringers) 1,000 mls @ 42 mls/hr IV CONT [facility] Last Admin: 02/07/23 19:28 Dose: Not Given Documented By: MARYLIN Lactated Ringer's (Lactated Ringers) 1,000 mls @ 100 mls/hr IV CONT [facility] Last Admin: 02/07/23 19:32 Dose: 100 mls/hr Documented By: Naloxone HCl (Naloxone 0.4 Mg/Ml Vial) 0.2 mg IV Q2MIN PRN PRN Reason: Opiate Reversal Naloxone HCl (Naloxone 0.4 Mg/Ml Vial) 0.2 mg IV Q2MIN PRN PRN Reason: Opiate Reversal Ondansetron HCl (Ondansetron 4 Mg/2 Ml Inj) 4 mg IV Q8HR PRN PRN Reason: Nausea And Vomiting Last Admin: 02/07/23 19:46 Dose: 4 mg Documented By: Ondansetron HCl (Ondansetron 4 Mg/2 Ml Inj) 4 mg IV NOW PRN PRN Reason: Nausea And Vomiting Last Admin: 02/07/23 18:12 Dose: 4 mg Documented By: BETHANY Ondansetron HCl (Ondansetron 4 Mg/2 Ml Inj) 4 mg IV Q4HR PRN PRN Reason: Nausea And Vomiting Ondansetron HCl (Ondansetron 4 Mg Odt) 4 mg PO Q4HR PRN PRN Reason: Nausea Oxycodone HCl (Oxycodone Ir 5 Mg Tablet) 5 mg PO Q3H PRN PRN Reason: Pain, Moderate (4-6) Last Admin: 02/07/23 20:25 Dose: 5 mg Documented By: Oxycodone HCl (Oxycodone Ir 5 Mg Tablet) 5 mg PO PACUNOW PRN PRN Reason: Mild or moderate pain Last Admin: 02/07/23 18:12 Dose: 5 mg Documented By: HO Discontinued Medications Bupivacaine Liposome (Bupivacaine Liposome 266 Mg/20 Ml Vial) 266 mg INJ NOW ONE Stop: 02/07/23 16:32 Last Admin: 02/07/23 16:32 Dose: 266 mg Documented By: LESA Bupivacaine HCl 60 ml/ (Epinephrine HCl 0.3 mg) 0 ml INJ INTRA-OP ONE Stop: 02/07/23 13:33 Last Admin: 02/07/23 16:31 Dose: 60.3 ml Documented By: LESA Enoxaparin Sodium (Enoxaparin 40 Mg/0.4 Ml Syringe) 40 mg SUBCUT DAILY [facility] Epinephrine HCl (Epinephrine 1 Mg/Ml) 1 mg IRR NOW ONE Stop: 02/07/23 16:33 Last Admin: 02/07/23 16:40 Dose: 1 mg Documented By: LESA Fentanyl (Fentanyl 100 Mcg/2 Ml Inj) 50 mcg IV Q1H PRN PRN Reason: Pain, Severe (7-10) Last Admin: 02/07/23 06:11 Dose: 50 mcg Documented By: MADY Sodium Chloride (Normal Saline 0.9%) 500 mls @ 1,000 mls/hr IV BOLUS ONE Stop: 02/07/23 06:29 Last Infusion: 02/07/23 07:16 Dose: 0 mls/hr Documented By: Admin: 02/07/23 06:12 Dose: 1,000 mls/hr Documented By: MADY Lactated Ringer's (Lactated Ringers) 1,000 mls @ 42 mls/hr IV CONT BARBIE Last Admin: 02/07/23 16:30 Dose: 42 mls/hr Documented By: Infusion: 02/07/23 16:30 Dose: 42 mls/hr Documented By: Admin: 02/07/23 12:10 Dose: 42 mls/hr Documented By: MARYLIN Cefazolin Sodium/Dextrose (Ancef) 100 mls @ 200 mls/hr IV NOW ONE Stop: 02/07/23 14:01 Last Infusion: 02/07/23 15:00 Dose: 0 mls/hr Documented By: Admin: 02/07/23 14:57 Dose: 200 mls/hr Documented By: MATIAS Lidocaine HCl (Lidocaine 2% (Glydo) 6 Ml Gel) 6 ml TOP NOW ONE Stop: 02/07/23 06:18 Last Admin: 02/07/23 08:06 Dose: Not Given Documented By: MARYLIN Tranexamic Acid (Tranexamic Acid 1,000 Mg Vial) 1,000 mg INJ INTRA-OP ONE Stop: 02/07/23 13:33 Last Admin: 02/07/23 15:00 Dose: 2,000 mg Documented By: MATIAS Vancomycin HCl (Vancomycin 1,000 Mg Vial) 1,000 mg TOP NOW ONE Stop: 02/07/23 17:02 Last Admin: 02/07/23 17:02 Dose: 1,000 mg Documented By: LESA Vital Signs Vital signs: Vital Signs - 8 hr 02/07/23 05:40 02/07/23 05:45 02/07/23 06:00 Temperature 96.9 F L Pulse Rate 87 89 Respiratory Rate 18 Blood Pressure 205/90 H 196/68 H Pulse Oximetry 99 98 Oxygen Delivery Method Room Air Room Air 02/07/23 06:00 02/07/23 06:20 02/07/23 06:20 Temperature Pulse Rate 88 88 Respiratory Rate Blood Pressure 191/82 H Pulse Oximetry 98 100 Oxygen Delivery Method Room Air Room Air 02/07/23 06:21 02/07/23 06:21 Temperature Pulse Rate 88 Respiratory Rate Blood Pressure 187/83 H Pulse Oximetry 99 Oxygen Delivery Method Room Air <Cristian Greco DO - Last Filed: 02/07/23 07:34> Orders Ordered: Acetaminophen (Acetaminophen 325 Mg Tablet) 650 mg PO Q6H PRN PRN Reason: Fever/Mild Pain (1-3) Aspirin (Aspirin Ec 81 Mg Tablet) 81 mg PO BID BARBIE Last Admin: 02/07/23 20:25 Dose: 81 mg Documented By: Hydromorphone HCl (Hydromorphone 0.5 Mg Inj) 0.5 mg IV Q2H PRN PRN Reason: Pain, Severe (7-10) Last Admin: 02/07/23 09:35 Dose: 0.5 mg Documented By: MARYLIN Hydromorphone HCl (Hydromorphone 1 Mg Inj) 0 mg IV Q5MIN PRN PRN Reason: Pain, Moderate (4-6) Last Admin: 02/07/23 18:13 Dose: 0.25 mg Documented By: Admin: 02/07/23 18:07 Dose: 0.25 mg Documented By: Admin: 02/07/23 17:59 Dose: 0.25 mg Documented By: Admin: 02/07/23 17:54 Dose: 0.25 mg Documented By: BETHANY Lactated Ringer's (Lactated Ringers) 1,000 mls @ 42 mls/hr IV CONT BARBIE Last Admin: 02/07/23 19:28 Dose: Not Given Documented By: MARYLIN Lactated Ringer's (Lactated Ringers) 1,000 mls @ 100 mls/hr IV CONT [facility] Last Admin: 02/07/23 19:32 Dose: 100 mls/hr Documented By: Naloxone HCl (Naloxone 0.4 Mg/Ml Vial) 0.2 mg IV Q2MIN PRN PRN Reason: Opiate Reversal Naloxone HCl (Naloxone 0.4 Mg/Ml Vial) 0.2 mg IV Q2MIN PRN PRN Reason: Opiate Reversal Ondansetron HCl (Ondansetron 4 Mg/2 Ml Inj) 4 mg IV Q8HR PRN PRN Reason: Nausea And Vomiting Last Admin: 02/07/23 19:46 Dose: 4 mg Documented By: Ondansetron HCl (Ondansetron 4 Mg/2 Ml Inj) 4 mg IV NOW PRN PRN Reason: Nausea And Vomiting Last Admin: 02/07/23 18:12 Dose: 4 mg Documented By: BETHANY Ondansetron HCl (Ondansetron 4 Mg/2 Ml Inj) 4 mg IV Q4HR PRN PRN Reason: Nausea And Vomiting Ondansetron HCl (Ondansetron 4 Mg Odt) 4 mg PO Q4HR PRN PRN Reason: Nausea Oxycodone HCl (Oxycodone Ir 5 Mg Tablet) 5 mg PO Q3H PRN PRN Reason: Pain, Moderate (4-6) Last Admin: 02/07/23 20:25 Dose: 5 mg Documented By: Oxycodone HCl (Oxycodone Ir 5 Mg Tablet) 5 mg PO PACUNOW PRN PRN Reason: Mild or moderate pain Last Admin: 02/07/23 18:12 Dose: 5 mg Documented By: HO Discontinued Medications Bupivacaine Liposome (Bupivacaine Liposome 266 Mg/20 Ml Vial) 266 mg INJ NOW ON E Stop: 02/07/23 16:32 Last Admin: 02/07/23 16:32 Dose: 266 mg Documented By: ES Bupivacaine HCl 60 ml/ (Epinephrine HCl 0.3 mg) 0 ml INJ INTRA-OP ONE Stop: 02/07/23 13:33 Last Admin: 02/07/23 16:31 Dose: 60.3 ml Documented By: LESA Enoxaparin Sodium (Enoxaparin 40 Mg/0.4 Ml Syringe) 40 mg SUBCUT DAILY [facility] Epinephrine HCl (Epinephrine 1 Mg/Ml) 1 mg IRR NOW ONE Stop: 02/07/23 16:33 Last Admin: 02/07/23 16:40 Dose: 1 mg Documented By: LESA Fentanyl (Fentanyl 100 Mcg/2 Ml Inj) 50 mcg IV Q1H PRN PRN Reason: Pain, Severe (7-10) Last Admin: 02/07/23 06:11 Dose: 50 mcg Documented By: MADY Sodium Chloride (Normal Saline 0.9%) 500 mls @ 1,000 mls/hr IV BOLUS ONE Stop: 02/07/23 06:29 Last Infusion: 02/07/23 07:16 Dose: 0 mls/hr Documented By: Admin: 02/07/23 06:12 Dose: 1,000 mls/hr Documented By: MADY Lactated Ringer's (Lactated Ringers) 1,000 mls @ 42 mls/hr IV CONT BARBIE Last Admin: 02/07/23 16:30 Dose: 42 mls/hr Documented By: Infusion: 02/07/23 16:30 Dose: 42 mls/hr Documented By: Admin: 02/07/23 12:10 Dose: 42 mls/hr Documented By: MARYLIN Cefazolin Sodium/Dextrose (Ancef) 100 mls @ 200 mls/hr IV NOW ONE Stop: 02/07/23 14:01 Last Infusion: 02/07/23 15:00 Dose: 0 mls/hr Documented By: Admin: 02/07/23 14:57 Dose: 200 mls/hr Documented By: MATIAS Lidocaine HCl (Lidocaine 2% (Glydo) 6 Ml Gel) 6 ml TOP NOW ONE Stop: 02/07/23 06:18 Last Admin: 02/07/23 08:06 Dose: Not Given Documented By: MARYLIN Tranexamic Acid (Tranexamic Acid 1,000 Mg Vial) 1,000 mg INJ INTRA-OP ONE Stop: 02/07/23 13:33 Last Admin: 02/07/23 15:00 Dose: 2,000 mg Documented By: MATIAS Vancomycin HCl (Vancomycin 1,000 Mg Vial) 1,000 mg TOP NOW ONE Stop: 02/07/23 17:02 Last Admin: 02/07/23 17:02 Dose: 1,000 mg Documented By: LESA Vital Signs Vital signs: Vital Signs - 8 hr 02/07/23 05:40 02/07/23 05:45 02/07/23 06:00 Temperature 96.9 F L Pulse Rate 87 89 Respiratory Rate 18 Blood Pressure 205/90 H 196/68 H Pulse Oximetry 99 98 Oxygen Delivery Method Room Air Room Air 02/07/23 06:00 02/07/23 06:20 02/07/23 06:20 Temperature Pulse Rate 88 88 Respiratory Rate Blood Pressure 191/82 H Pulse Oximetry 98 100 Oxygen Delivery Method Room Air Room Air 02/07/23 06:21 02/07/23 06:21 Temperature Pulse Rate 88 Respiratory Rate Blood Pressure 187/83 H Pulse Oximetry 99 Oxygen Delivery Method Room Air MDM - Fall <Gilson Palomo, DO - Last Filed: 02/08/23 02:19> Lab Data 02/07/23 06:19 02/07/23 06:19 Labs: Lab Results 02/07/23 02/07/23 Range/Units 06:19 06:19 WBC 8.6 (4.5-11.0) X10^3/uL RBC 3.59 L (4.0-5.2) X10^6/uL Hgb 11.7 L (12.0-16.0) g/dL Hct 34.1 L (36-46) % MCV 95.0 (80-100) fL MCH 32.7 (26-34) PG MCHC 34.5 (30-36) % RDW 12.5 (11.6-14.8) % Plt Count 210 (150-400) X10^3/uL Neut % (Auto) 51.8 (50-75) % Lymph % (Auto) 35.0 (25-40) % [place] % (Auto) 7.0 (3-14) % Eos % (Auto) 5.3 H (2-4) % Baso % (Auto) 0.9 (0-2) % Neut # (Auto) 4400 (1154-5363) /uL Lymph # (Auto) 3000 (5121-5860) /uL [place] # (Auto) 600 (0-900) /uL Eos # (Auto) 500 H (0-450) /uL Baso # (Auto) 100 (0-100) /uL Sodium 139 (137-145) mmol/L Potassium 4.2 (3.4-5.1) mmol/L Chloride 104 (98-107) mmol/L Carbon Dioxide 25 (22-32) mmol/L BUN 25 H (7-17) mg/dL Creatinine 0.88 (0.52-1.04) mg/dL Estimated GFR > 60 (>60) mL/min BUN/Creatinine Ratio 28.4 H (6-22) Glucose 111 H (80-110) mg/dL Calcium 9.7 (8.4-10.2) mg/dL Total Bilirubin 0.5 (0.2-1.3) mg/dL AST 35 (14-36) IU/L ALT 28 (<35) IU/L Alkaline Phosphatase 54 (38-126) U/L Total Protein 7.3 (6.3-8.2) g/dL Albumin 4.2 (3.5-5.0) g/dL Globulin 3.1 (1.7-4.1) g/dL Albumin/Globulin Ratio 1.4 (1.0-2.8) MDM Narrative Medical decision making narrative: [82] year old patient presents with ground level fall and hip pain Multiple etiologies for patient's symptoms considered including, but not limited to: [Hip fracture versus dislocation versus other] Prior Charts reviewed in our EMR Primary Historian: patient Labs reviewed and interpreted by myself: Imaging reviewed: Right hip x-ray demonstrates mildly displaced right femoral neck fracture, CT of head demonstrates[], CT of pelvis demonstrates[] Consultations: Discussed with on-call orthopedist (Dr. Mera) see above. Discussed with hospitalist, see above Patient's symptoms improved over duration of stay with above-stated therapies. Findings and discharge diagnosis discussed with patient/family followed by verbalization of understanding Return precautions discussed with patient/family whom verbalize understanding of diagnosis and plan <Cristian Greco, DO - Last Filed: 02/07/23 07:34> Lab Data Labs: Lab Results 02/07/23 02/07/23 Range/Units 06:19 06:19 WBC 8.6 (4.5-11.0) X10^3/uL RBC 3.59 L (4.0-5.2) X10^6/uL Hgb 11.7 L (12.0-16.0) g/dL Hct 34.1 L (36-46) % MCV 95.0 (80-100) fL MCH 32.7 (26-34) PG MCHC 34.5 (30-36) % RDW 12.5 (11.6-14.8) % Plt Count 210 (150-400) X10^3/uL Neut % (Auto) 51.8 (50-75) % Lymph % (Auto) 35.0 (25-40) % [place] % (Auto) 7.0 (3-14) % Eos % (Auto) 5.3 H (2-4) % Baso % (Auto) 0.9 (0-2) % Neut # (Auto) 4400 (1810-2216) /uL Lymph # (Auto) 3000 (0387-5011) /uL [place] # (Auto) 600 (0-900) /uL Eos # (Auto) 500 H (0-450) /uL Baso # (Auto) 100 (0-100) /uL Sodium 139 (137-145) mmol/L Potassium 4.2 (3.4-5.1) mmol/L Chloride 104 (98-107) mmol/L Carbon Dioxide 25 (22-32) mmol/L BUN 25 H (7-17) mg/dL Creatinine 0.88 (0.52-1.04) mg/dL Estimated GFR > 60 (>60) mL/min BUN/Creatinine Ratio 28.4 H (6-22) Glucose 111 H (80-110) mg/dL Calcium 9.7 (8.4-10.2) mg/dL Total Bilirubin 0.5 (0.2-1.3) mg/dL AST 35 (14-36) IU/L ALT 28 (<35) IU/L Alkaline Phosphatase 54 (38-126) U/L Total Protein 7.3 (6.3-8.2) g/dL Albumin 4.2 (3.5-5.0) g/dL Globulin 3.1 (1.7-4.1) g/dL Albumin/Globulin Ratio 1.4 (1.0-2.8) MDM Narrative Medical decision making narrative: [82] year old patient presents with ground level fall and hip pain Multiple etiologies for patient's symptoms considered including, but not limited to: [Hip fracture versus dislocation versus other] Prior Charts reviewed in our EMR Primary Historian: patient Labs reviewed and interpreted by myself: Imaging reviewed: Right hip x-ray demonstrates mildly displaced right femoral neck fracture, CT of head demonstrates[no acute pathology], CT of pelvis demonstrates[right femoral neck fracture] Consultations: Discussed with on-call orthopedist (Dr. Mera) see above. Discussed with hospitalist, see above Patient's symptoms improved over duration of stay with above-stated therapies. Findings and discharge diagnosis discussed with patient/family followed by verbalization of understanding Return precautions discussed with patient/family whom verbalize understanding of diagnosis and plan Dr greco: Received turned over. Reviewed history and physical and workup up to this point. Head CT is negative. Dr. Palomo has already discussed the case with Orthopedic surgery. I discussed the case with Dr. Osborn hospitalist on- call who will admit for further evaluation and treatment. Discharge Plan Departure Patient Disposition: Admitted As Inpatient Clinical Impression: Closed fracture of right hip Admit Date/Time: 02/07/23 07:33 Admit Provider: Jose Osborn
[2023-02-07] MEDS: fentaNYL 100 MCG/2 ML INJ 50 MCG IV (06:11)
[2023-02-07] MEDS: SODIUM CHLORIDE 0.9% 500 ML 1000 ML IV (06:12)
[2023-02-07 06:29] LABS: Add Manual Diff / Slide Review NO; Basophils Absolute Auto 100 /uL (0-100); Basophils Percent Auto 0.9 % (0-2); Eosinophils Absolute Auto 500 /uL (0-450); Eosinophils Percent Auto 5.3 % (2-4); Hematocrit 34.1 % (36-46); Hemoglobin 11.7 g/dL (12.0-16.0); Lymphocytes Absolute Auto 3000 /uL (1100-4500); Mean Corpuscular HGB Conc 34.5 % (30-36); Mean Corpuscular Hemoglobin 32.7 PG (26-34); Monocytes Absolute Auto 600 /uL (0-900); Neutrophils Absolute Auto 4400 /uL (1500-7000); Neutrophils Percent Auto 51.8 % (50-75); Platelet Count 210 X10^3/uL (150-400); Red Blood Cell Count 3.59 X10^6/uL (4.0-5.2); Red Cell Distribution Width 12.5 % (11.6-14.8); White Blood Cell Count 8.6 X10^3/uL (4.5-11.0)
[2023-02-07 06:39] LABS: Alanine Aminotransferase 28 IU/L (<35); Albumin 4.2 g/dL (3.5-5.0); Albumin Globulin Ratio 1.4 (1.0-2.8); Alkaline Phosphatase 54 U/L (38-126); Aspartate Aminotransferase 35 IU/L (14-36); BUN Creatinine Ratio 28.4 (6-22); Bilirubin Total 0.5 mg/dL (0.2-1.3); Blood Urea Nitrogen 25 mg/dL (7-17); Calcium 9.7 mg/dL (8.4-10.2); Carbon Dioxide 25 mmol/L (22-32); Chloride 104 mmol/L (98-107); Estimated Glomerular Filt Rate > 60 mL/min (>60); Globulin 3.1 g/dL (1.7-4.1); Glucose 111 mg/dL (80-110); HEMOLYSIS 18 (0-50); Potassium 4.2 mmol/L (3.4-5.1); Sodium 139 mmol/L (137-145); Total Protein 7.3 g/dL (6.3-8.2)
[2023-02-07] MEDS: HYDROMORPHONE 0.5 MG INJ IV (09:35)
--- NOTE | 2023-02-07 10:36 | PC.NURSE ---
Patient is alert and oriented x4. She had a fall when she was trying to help her off of the toilet. She has a fx r.hip. Given 0.5mg of iv dilaudid and helpful. Patient has been admitted to the hospital and will have surgery around 1300. Asked Dr. Osborn about giving patient some ivf and he does not want to do this at this time. Patient is resting comfortably.
--- NOTE | 2023-02-07 10:53 | CM.DANOTE ---
Initial DCP Assessment Note Pt is an 82 yo female, resident of [facility], arrives after a GLF at home w/subsequent hip fx, scheduled for hip repair in the OR today PCP: Oliver Blank Payer: [employer] Met w/patient this morning, step daughter Yi was at bedside, and patient requests she be involved as needed for discussion and planning purposes. Patient lives in a mobile home with her Andrei, who is currently on hospice care. Spouse has caregivers and other family members assisting now with his care Patient is typically indp at baseline, says she would like to spend as much time with her upon discharge but is willing to consider a short rehab stay upon discharge is that is recommended Discussed discharge planning process for SNF which includes finding and securing a SNF that will accept [facility] and obtaining an authorization, patient states understanding Both patient and her daughter are in good spirits today and are very appreciative for the visit Plan: Home w/ HH, caregivers and supportive family vs SNF stay if SNF and auth through [facility] can be secured CM team following closely for coordination of the safest DCP available to patient GINGER Higgins Discharge Planning/Care Management CM Discharge Assessment Start: 02/07/23 10:49 Freq: Status: Active Protocol: Document 02/07/23 10:49 ANY (Rec: 02/07/23 10:53 ANY [id number]) Discharge Planning Assessment Assigned Knockdown Man GINGER Mckeon DPOA/Assigned Designee Name Yi Hernandez, cesar daughter (Genia Pinedo) Contact Information [phone] Advance Directives? Yes Advance Directives on File Yes History Provided By Patient,Family Member Prior Living Arrangements Mobile home Household Members spouse Comment Spouse Andrei is currently on Hospice Type of transporation used prior to Drives own vehicle admit Independent with ADL's Yes Is patient alert and oriented? Yes Patient/Family Preference Fpc Facility Barriers to Discharge Yes Comment Patient's spouse is home on hospice, has caregivers and family support, anticipate that it may be safer for patient to discharge to a SNF short term rehab Transportation Arrangement TBD Additional Comment TBD Whiteboard Updated in Patient Room with Yes name and ext. # of Knockdown Man
--- NOTE | 2023-02-07 11:00 | PC.NURSE ---
Addendum entered by Esperanza Crespo R.N. 02/07/23 18:52: Patient just back from surgery, she is alert and oriented. She has LR at 100cc/hr. Aquacel to r.hip is cdi. Patient resting comfortably. Addendum entered by Esperanza Crespo R.N. 02/07/23 14:50: Patient down to surgery to r.hip around 1300. Original Note: Patient is alert and oriented x2. He is confused but pleasant. He refused his scds and heparin injection. Just given some potassium liquid in apple juice and he was able to drink that. MRI of brain done and family is in patients room visting. He is tolerating some clear liquids.
--- NOTE | 2023-02-07 12:09 | P.CONS_ITS ---
History of Present Illness Consult details Date Patient Seen: 02/07/23 Chief complaint: fall and bonked head Narrative: Meds Home Medications and Allergies Home Medications Medication Instructions Recorded Confirmed Type polyethylene glycol 3350 17 gram 17 gm PO Q DAY PRN Constipation ##0 12/22/15 02/07/23 History oral powder packet (Miralax) One Daily Women 50 Plus 1 tab PO DAILY 11/13/17 02/07/23 History omeprazole 40 mg capsule,delayed 40 mg PO DAILY #90 caps 04/30/22 02/07/23 Rx release dicyclomine 20 mg tablet 20 mg PO DAILY 01/11/23 02/07/23 History lisinopril 20 1 tab PO DAILY #90 tabs 02/04/23 02/07/23 Rx mg-hydrochlorothiazide 25 mg tablet Allergies Allergy/AdvReac Type Severity Reaction Status Date / Time prochlorperazine Allergy Severe lock jaw Verified 01/11/23 13:51 [PROCHLORPERAZINE] type symptoms amoxicillin [From AUGMENTIN] AdvReac Intermediate Nausea and Verified 01/11/23 13:51 vomitting. clavulanic acid AdvReac Intermediate n&v Verified 01/11/23 13:51 [From AUGMENTIN] Review of Systems Review of Systems ROS: Yes All systems reviewed with the patient and are negative except as otherwise documented Exam Vital Signs (past 8 hours): - 02/07/23 05:40 02/07/23 05:45 02/07/23 06:00 Temperature 96.9 F L Pulse Rate 87 89 Respiratory Rate 18 Blood Pressure 205/90 H 196/68 H Pulse Oximetry 99 98 Oxygen Delivery Method Room Air Room Air Oxygen Flow Rate 02/07/23 06:00 02/07/23 06:20 02/07/23 06:20 Temperature Pulse Rate 88 88 Respiratory Rate Blood Pressure 191/82 H Pulse Oximetry 98 100 Oxygen Delivery Method Room Air Room Air Oxygen Flow Rate 02/07/23 06:21 02/07/23 06:21 02/07/23 06:35 Temperature Pulse Rate 88 Respiratory Rate Blood Pressure 187/83 H Pulse Oximetry 99 85 L Oxygen Delivery Method Room Air Oxygen Flow Rate 02/07/23 07:00 02/07/23 07:22 02/07/23 07:22 Temperature Pulse Rate 96 H 89 Respiratory Rate Blood Pressure 172/72 H Pulse Oximetry 97 98 Oxygen Delivery Method Oxygen Flow Rate 02/07/23 07:25 02/07/23 07:25 02/07/23 07:30 Temperature Pulse Rate 88 85 Respiratory Rate Blood Pressure 153/70 H Pulse Oximetry 96 98 Oxygen Delivery Method Oxygen Flow Rate 02/07/23 07:31 02/07/23 07:31 02/07/23 07:35 Temperature Pulse Rate 86 Respiratory Rate Blood Pressure 166/70 H 182/79 H Pulse Oximetry 96 Oxygen Delivery Method Oxygen Flow Rate 02/07/23 07:35 02/07/23 07:50 02/07/23 12:00 Temperature 98.4 F 99.5 F Pulse Rate 90 87 102 H Respiratory Rate 18 18 Blood Pressure 178/56 H 157/62 H Pulse Oximetry 97 98 99 Oxygen Delivery Method Oxygen Flow Rate 0 0 Oxygen Delivery Method Room Air Oxygen Flow Rate 0 Const Orientation: alert and awake HENMT Head: normal to inspection Neck Neck: normal visual inspection Resp Effort & Inspection: able to speak in complete sentences Cardio Pulses: other (peripheral pulses present) Neuro General: patient alert and patient awake Psych Appearance: grossly normal Objective Labs 02/07/23 06:19 02/07/23 06:19 Labs: Laboratory Results - last 24 hr 02/07/23 02/07/23 06:19 06:19 WBC 8.6 RBC 3.59 L Hgb 11.7 L Hct 34.1 L MCV 95.0 MCH 32.7 MCHC 34.5 RDW 12.5 Plt Count 210 Neut % (Auto) 51.8 Lymph % (Auto) 35.0 [place] % (Auto) 7.0 Eos % (Auto) 5.3 H Baso % (Auto) 0.9 Neut # (Auto) 4400 Lymph # (Auto) 3000 [place] # (Auto) 600 Eos # (Auto) 500 H Baso # (Auto) 100 Sodium 139 Potassium 4.2 Chloride 104 Carbon Dioxide 25 BUN 25 H Creatinine 0.88 Estimated GFR > 60 BUN/Creatinine Ratio 28.4 H Glucose 111 H Calcium 9.7 Total Bilirubin 0.5 AST 35 ALT 28 Alkaline Phosphatase 54 Total Protein 7.3 Albumin 4.2 Globulin 3.1 Albumin/Globulin Ratio 1.4 PFSH Medical History Breast cancer (2001) Cervical radiculopathy Chickenpox (Unknown) Chronic back pain (1999) Colitis (1979) Fibromyalgia (12/04/01) GERD (gastroesophageal reflux disease) (1979) History of malignant neoplasm of breast (12/22/15) Irritable bowel syndrome without diarrhea (12/22/15) Kidney stones (1989) Measles (Unknown) Medicare annual wellness visit, subsequent Midline low back pain without sciatica (12/22/15) Mumps (Unknown) Osteoporosis (05/2017) Radiculopathy, thoracic region Sleep apnea (2009) 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 Social History marital status: household members: spouse housing: house Tobacco & Substance Use Smoking Status: Never smoker alcohol intake: never
[2023-02-07] MEDS: LACTATED RINGERS 1,000 ML 42 ML IV ×2 (12:10→16:30)
--- NOTE | 2023-02-07 12:19 | P.CONS_ITS ---
History of Present Illness Consult details Chief complaint: fall and bonked head Narrative: 82-year-old female evaluated for right femoral neck fracture. 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 She landed on her hip and had immediate pain there. She has a known diagnosis of osteoporosis but has never been medicated for it. She does not use any ambulatory aids, is a nonsmoker, and does not take any blood thinners. She had no antecedent pain in her hip. She has family nearby who are available to help her and her The pain is severe. It has been constant since the time of injury. It is aggravated by movement and alleviated somewhat by rest. It does not radiate. Meds Home Medications and Allergies Home Medications Medication Instructions Recorded Confirmed Type polyethylene glycol 3350 17 gram 17 gm PO Q DAY PRN Constipation ##0 12/22/15 02/07/23 History oral powder packet (Miralax) One Daily Women 50 Plus 1 tab PO DAILY 11/13/17 02/07/23 History omeprazole 40 mg capsule,delayed 40 mg PO DAILY #90 caps 04/30/22 02/07/23 Rx release dicyclomine 20 mg tablet 20 mg PO DAILY 01/11/23 02/07/23 History lisinopril 20 1 tab PO DAILY #90 tabs 02/04/23 02/07/23 Rx mg-hydrochlorothiazide 25 mg tablet Allergies Allergy/AdvReac Type Severity Reaction Status Date / Time prochlorperazine Allergy Severe lock jaw Verified 01/11/23 13:51 [PROCHLORPERAZINE] type symptoms amoxicillin [From AUGMENTIN] AdvReac Intermediate Nausea and Verified 01/11/23 13:51 vomitting. clavulanic acid AdvReac Intermediate n&v Verified 01/11/23 13:51 [From AUGMENTIN] Review of Systems Review of Systems ROS: Yes All systems reviewed with the patient and are negative except as otherwise documented Exam Vital Signs (past 8 hours): - 02/07/23 05:40 02/07/23 05:45 02/07/23 06:00 Temperature 96.9 F L Pulse Rate 87 89 Respiratory Rate 18 Blood Pressure 205/90 H 196/68 H Pulse Oximetry 99 98 Oxygen Delivery Method Room Air Room Air Oxygen Flow Rate 02/07/23 06:00 02/07/23 06:20 02/07/23 06:20 Temperature Pulse Rate 88 88 Respiratory Rate Blood Pressure 191/82 H Pulse Oximetry 98 100 Oxygen Delivery Method Room Air Room Air Oxygen Flow Rate 02/07/23 06:21 02/07/23 06:21 02/07/23 06:35 Temperature Pulse Rate 88 Respiratory Rate Blood Pressure 187/83 H Pulse Oximetry 99 85 L Oxygen Delivery Method Room Air Oxygen Flow Rate 02/07/23 07:00 02/07/23 07:22 02/07/23 07:22 Temperature Pulse Rate 96 H 89 Respiratory Rate Blood Pressure 172/72 H Pulse Oximetry 97 98 Oxygen Delivery Method Oxygen Flow Rate 02/07/23 07:25 02/07/23 07:25 02/07/23 07:30 Temperature Pulse Rate 88 85 Respiratory Rate Blood Pressure 153/70 H Pulse Oximetry 96 98 Oxygen Delivery Method Oxygen Flow Rate 02/07/23 07:31 02/07/23 07:31 02/07/23 07:35 Temperature Pulse Rate 86 Respiratory Rate Blood Pressure 166/70 H 182/79 H Pulse Oximetry 96 Oxygen Delivery Method Oxygen Flow Rate 02/07/23 07:35 02/07/23 07:50 02/07/23 12:00 Temperature 98.4 F 99.5 F Pulse Rate 90 87 102 H Respiratory Rate 18 18 Blood Pressure 178/56 H 157/62 H Pulse Oximetry 97 98 99 Oxygen Delivery Method Oxygen Flow Rate 0 0 Oxygen Delivery Method Room Air Oxygen Flow Rate 0 Const General: cooperative Orientation: alert and awake HENMT Head: normal to inspection Ears: hearing grossly normal bilaterally Eyes General: appearance normal, both eyes and all related structures Neck Neck: normal visual inspection Resp Effort & Inspection: normal respiratory effort and able to speak in complete sentences Cardio Pulses: other (peripheral pulses present) Skin Lesions: no lesions Rashes: no rashes Neuro General: patient alert, patient awake and moves all extremities Psych Appearance: grossly normal Objective Imaging Pelvis Xray: My impression: Pelvis radiographs reveal a displaced right femoral neck fracture. Additionally noted is poor bone quality consistent with osteoporosis. Labs 02/07/23 06:19 02/07/23 06:19 Labs: Laboratory Results - last 24 hr 02/07/23 02/07/23 06:19 06:19 WBC 8.6 RBC 3.59 L Hgb 11.7 L Hct 34.1 L MCV 95.0 MCH 32.7 MCHC 34.5 RDW 12.5 Plt Count 210 Neut % (Auto) 51.8 Lymph % (Auto) 35.0 [place] % (Auto) 7.0 Eos % (Auto) 5.3 H Baso % (Auto) 0.9 Neut # (Auto) 4400 Lymph # (Auto) 3000 [place] # (Auto) 600 Eos # (Auto) 500 H Baso # (Auto) 100 Sodium 139 Potassium 4.2 Chloride 104 Carbon Dioxide 25 BUN 25 H Creatinine 0.88 Estimated GFR > 60 BUN/Creatinine Ratio 28.4 H Glucose 111 H Calcium 9.7 Total Bilirubin 0.5 AST 35 ALT 28 Alkaline Phosphatase 54 Total Protein 7.3 Albumin 4.2 Globulin 3.1 Albumin/Globulin Ratio 1.4 [facility] Medical History Breast cancer (2001) Cervical radiculopathy Chickenpox (Unknown) Chronic back pain (1999) Colitis (1979) Fibromyalgia (12/04/01) GERD (gastroesophageal reflux disease) (1979) History of malignant neoplasm of breast (12/22/15) Irritable bowel syndrome without diarrhea (12/22/15) Kidney stones (1989) Measles (Unknown) Medicare annual wellness visit, subsequent Midline low back pain without sciatica (12/22/15) Mumps (Unknown) Osteoporosis (05/2017) Radiculopathy, thoracic region Sleep apnea (2009) 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 Social History marital status: household members: spouse housing: house Tobacco & Substance Use Smoking Status: Never smoker alcohol intake: never Assessment & Plan Assessment & Plan narrative: 82-year-old female with displaced right femoral neck fracture. Plan to proceed with right hip hemiarthroplasty with a cemented stem. She will be on aspirin postoperatively for DVT prophylaxis. We will hope to discharge her home so that she can be with her who is now going to transition to hospice care with full-time help as she will not be able to help him as much. She was marked and consented for surgery today.
[2023-02-07] MEDS: CEFAZOLIN 2 GM/100 ML PREMIX 100 ML IV (14:57)
[2023-02-07] MEDS: TRANEXAMIC ACID 1,000 MG VIAL 1000 MG INJ (15:00)
--- NOTE | 2023-02-07 15:51 | SUR.OPER ---
Supine on padded [place] Plane table with bilateral legs secured in padded positioning boots and suspended in positioning spars, Patients hospital socks left in place per Surgeon, right foot then wrapped in coban then paced into operative leg in traction per surgeon. Head on one pillow. Bilateral Arms secured on padded armboard <90 degrees abduction. A Padded perineal post in place per surgeon.
--- NOTE | 2023-02-07 16:14 | P.HP_ITS ---
History of Present Illness History of Present Illness Date Patient Seen: 02/07/23 Time Patient Seen: 10:00 Chief complaint: fall and bonked head Narrative: Ms. Katz is an 82W with PMH HTN, chronic neck pain who presents to the hospital after a fall. 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 He was unsteady this morning and fell into her and this caused her to fall and land on her right hip and hit her head. She did not lose consciousness. She had significant hip pain afterwards, unable to weight bear. She was brought in by EMS. In the ED workup was done, vitals notable for afebrile, heart rate 80s, blood pressure 200s/90s. Sats 99% on room air. Labs reviewed by me and notable for WBC 8.6, hgb 11.7, plts 210. Creatinine 0.88. Hip xray showed mildly displaced right femoral neck fracture. CT head showed no acute process. She was admitted for further treatment. 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 Social History marital status: household members: spouse housing: house Smoking Status: Never smoker alcohol intake: never Meds Home Medications and Allergies Home Medications Medication Instructions Recorded Confirmed Type polyethylene glycol 3350 17 gram 17 gm PO Q DAY PRN Constipation ##0 12/22/15 02/07/23 History oral powder packet (Miralax) One Daily Women 50 Plus 1 tab PO DAILY 11/13/17 02/07/23 History omeprazole 40 mg capsule,delayed 40 mg PO DAILY #90 caps 04/30/22 02/07/23 Rx release dicyclomine 20 mg tablet 20 mg PO DAILY 01/11/23 02/07/23 History lisinopril 20 1 tab PO DAILY #90 tabs 02/04/23 02/07/23 Rx mg-hydrochlorothiazide 25 mg tablet Allergies Allergy/AdvReac Type Severity Reaction Status Date / Time prochlorperazine Allergy Severe lock jaw Verified 02/07/23 13:21 [PROCHLORPERAZINE] type symptoms amoxicillin [From AUGMENTIN] AdvReac Intermediate Nausea and Verified 02/07/23 13:21 vomitting. clavulanic acid AdvReac Intermediate n&v Verified 02/07/23 13:21 [From AUGMENTIN] Review of Systems Review of Systems Narrative: 14 systems reviewed and negative aside from what is noted in HPI Exam Vital Signs (past 8 hours): - 02/07/23 12:00 02/07/23 13:14 Temperature 99.5 F 98.2 F Pulse Rate 102 H 102 H Respiratory Rate 18 16 Blood Pressure 157/62 H 145/75 H Pulse Oximetry 99 99 Oxygen Delivery Method Room Air Oxygen Flow Rate 0 Oxygen Delivery Method Room Air Oxygen Flow Rate 0 Narrative Exam Narrative: GEN: in distress from pain CV: regular rate and rhythm PULM: clear bilaterally ABD: soft, nontender EXT: R hip tender to palpation Objective Labs 02/07/23 06:19 02/07/23 06:19 Labs: Laboratory Results - last 24 hr 02/07/23 02/07/23 06:19 06:19 WBC 8.6 RBC 3.59 L Hgb 11.7 L Hct 34.1 L MCV 95.0 MCH 32.7 MCHC 34.5 RDW 12.5 Plt Count 210 Neut % (Auto) 51.8 Lymph % (Auto) 35.0 [place] % (Auto) 7.0 Eos % (Auto) 5.3 H Baso % (Auto) 0.9 Neut # (Auto) 4400 Lymph # (Auto) 3000 [place] # (Auto) 600 Eos # (Auto) 500 H Baso # (Auto) 100 Sodium 139 Potassium 4.2 Chloride 104 Carbon Dioxide 25 BUN 25 H Creatinine 0.88 Estimated GFR > 60 BUN/Creatinine Ratio 28.4 H Glucose 111 H Calcium 9.7 Total Bilirubin 0.5 AST 35 ALT 28 Alkaline Phosphatase 54 Total Protein 7.3 Albumin 4.2 Globulin 3.1 Albumin/Globulin Ratio 1.4 Assessment & Plan Assessment & Plan narrative: 1. Right hip fracture, acute -xray noted mildly displaced right femoral neck fracture -ortho consulted -plan for OR today 2. Hypertension -hold home medications 3. GERD -restart PPI after OR I have discussed plan and obtained history from the patient. I have discussed plan of care with ED physician and bedside nurse. I have reviewed labs, imaging. CODE: DNR/DNI per patient Proxy: Andrei Radhika, Quality VTE Deep Vein Thrombosis/Pulmonary Embolism Present on Admission: No MIPS - Meds 'Current medications' to include all prescriptions, [id number] products, herbals, cannabis/cannabidiol products, and vitamin/mineral/dietary (nutritional) supplements. I have utilized all available resources to obtain, update, or review the patient?s current medications. [If Yes, STOP here]: Yes
[2023-02-07] MEDS: BUPIVACAINE 0.25% (PF) 60 ML, EPINEPHrine 0.3 MG INJ (16:31)
[2023-02-07] MEDS: BUPIVACAINE LIPOSOME 266 MG/20 ML VIAL INJ (16:32)
[2023-02-07] MEDS: EPINEPHrine 1 MG/ML IRR (16:40)
[2023-02-07] MEDS: VANCOMYCIN 1,000 MG VIAL 1000 MG TOP (17:02)
--- NOTE | 2023-02-07 17:51 | DI.RAD.S_ITS ---
PROCEDURE: XR HIP W PEL IF DONE RT 2V INDICATIONS: Intraoperative imaging TECHNIQUE: Intraoperative images. COMPARISON: [facility], CR, XR HIP W PEL IF DONE RT 2V, 02/07/2023, 5:46. FINDINGS: Intraoperative images demonstrate placement of right hip arthroplasty. Prosthetic elements are in appropriate position. IMPRESSION: Intraoperative images of right hip arthroplasty with prosthetic elements in appropriate position. Please see operative report for full details. Approved by: Tamia Marc M.D. on 02/07/2023 at 20:26
[2023-02-07] MEDS: HYDROMORPHONE 1 MG INJ IV ×4 (17:54→18:13)
[2023-02-07] MEDS: ONDANSETRON 4 MG/2 ML INJ IV ×2 (18:12→19:46)
[2023-02-07] MEDS: OXYCODONE IR 5 MG TABLET PO ×2 (18:12→20:25)
--- NOTE | 2023-02-07 18:14 | PM.OP.1 ---
Operative Date/Time/Diagnoses Date of procedure: 02/07/23 Time of procedure: 15:00 Pre-op diagnosis: Right femoral neck fracture Post-op diagnosis: same Procedure & Clinicians Procedure: Right hip hemiarthroplasty for femoral neck fracture Same procedure as scheduled: Yes Surgeon: Sam Medrano Photoengraver Apprentice: Vasile Meek Operative Notes Findings: Right Femoral neck fracture Prosthetic devices, grafts, tissues, transplants, or devices: Size 12 Mera [employer] Nephew Synergy Cemented Femoral Stem +0 46mm Unipolar Head Cerclage Cable Procedure in detail: This 82-year-old female patient who sustained a femoral neck fracture and was admitted to the hospital. I met her preoperatively and discussed the injury as well as planned surgery. We discussed the risks and benefits and informed consent was obtained. The surgical site was marked. She was taken to the operating room where general anesthesia was induced. She was placed in the supine position on the [place] traction table and all bony prominences were padded. Preoperative antibiotics and tranexamic acid were administered. The hip was prepped and draped in the normal sterile fashion. A time-out was performed to confirm the appropriate patient, surgical procedure, and operative extremity. Everyone was in agreement A direct anterior approach to the hip was utilized. The skin incision was made over the TFL and the TFL was incised and retracted laterally. The lateral circumflex vessels were identified and coagulated. The floor of the tensor sheath was exposed and Cobra retractors were placed on the superior and inferior femoral neck. An anterior wall retractor was placed to tense the reflected head of rectus femoris and this was released. A capsulotomy was performed wall ensuring protection of the labrum. Fracture hematoma was noted upon incising the capsule. Tag stitches were placed and a freshening cut was made in the femoral neck proximal to the site of the displaced fracture. The fracture and the femoral head were removed. On a CT of the abdomen performed well prior to the patient's injury I had measured the femoral head at 46 mm. The removed head was similarly measured at 46 mm. I then released the femur to allow mobilization for stem preparation. I began this in neutral hip extension working along the lateral aspect of the greater trochanter. A [place] hook was placed and the hip was hyperextended and adducted with traction off. The hip was elevated and additional releases of the conjoined tendon were performed to ensure adequate mobilization. Extremely poor bone quality was noted and I was able to gain access to the femoral canal with the Yankauer suction tip. The bone was prepped for broaching with a rongeur and a canal Finder. We broached up to a size 12. This was then reduced and it was noted to be quite long fluoroscopically. Retractors were replaced and the broach was sunk deeper. I calcar planed with the broach in place and noted a crack. Dissecting further distally I found that that crack ended within the lesser trochanter. A cable was placed while in the broaching position and tensioned. The broach was removed to allow further inspection of the fracture and then replaced. A trial head was placed at that time and multiple fluoroscopic views were obtained to ensure that the fracture did not propagate distally. No propagation was noted. We then returned to the broaching position and calcar planed more distally using a sharper calcar planer. When this was trialed, appropriate leg length and offset were noted fluoroscopically. We then returned to the broaching position and removed the broach. The femur was irrigated with a canal household assistant. A cement restrictor was placed. The canal was irrigated a 2nd time and epinephrine soaked vaginal packing was placed along with a suction catheter in the canal. Cement was placed and the suction catheter was removed. The cement was pressurized. The stem was inserted and compressed down until the collar of the implant was flush with the calcar. The cement was allowed to dry, a 46 mm head corresponding to the trial implant size was impacted onto a clean dry trunnion and the hip was reduced. Betadine was placed in the wound and final fluoroscopic images were obtained. Additional views were obtained with the hip in internal and external rotation to evaluate for additional fractures from the calcar split which had been noted during calcar planing. None were visualized. 1 g of vancomycin was placed in the wound. The capsule was closed with Vicryl. The TFL fascia was closed with Stratafix. The deep subcutaneous tissue was closed with Vicryl and the subcutaneous tissue was closed with 2-0 and 3-0 Monocryl. Dermabond and an Aquacel dressing were applied. The patient was transferred off of the [place] table onto a stretcher and taken to the PACU where she awoke without complication Post-operative Plan for aftercare: WBAT ASA 81 BID Multimodal pain management Mobilize with PT Anticipate DC home given good pre-injury function Followup at [facility] in 2 weeks
[2023-02-07] MEDS: LACTATED RINGERS 1,000 ML 100 ML IV (19:32)
[2023-02-07] MEDS: ASPIRIN EC 81 MG TABLET PO (20:25)
[2023-02-08 01:45] VITALS: BP 102/40; PULSE 79; RESP 20; TEMP 36.1; O2SAT 100
[2023-02-08 05:34] VITALS: BP 102/48; PULSE 82; RESP 20; TEMP 36.8; O2SAT 97
[2023-02-08 05:54] LABS: Add Manual Diff / Slide Review NO; Basophils Absolute Auto 0 /uL (0-100); Basophils Percent Auto 0.2 % (0-2); Eosinophils Absolute Auto 0 /uL (0-450); Hematocrit 26.3 % (36-46); Hemoglobin 8.9 g/dL (12.0-16.0); Lymphocytes Absolute Auto 1100 /uL (1100-4500); Lymphocytes Percent Auto 7.2 % (25-40); Mean Corpuscular HGB Conc 33.6 % (30-36); Mean Corpuscular Hemoglobin 32.4 PG (26-34); Mean Corpuscular Volume 96.3 fL (80-100); Monocytes Absolute Auto 1000 /uL (0-900); Neutrophils Absolute Auto 12900 /uL (1500-7000); Neutrophils Percent Auto 85.6 % (50-75); Platelet Count 97 X10^3/uL (150-400); Red Blood Cell Count 2.73 X10^6/uL (4.0-5.2); Red Cell Distribution Width 12.6 % (11.6-14.8)
[2023-02-08 06:04] LABS: BUN Creatinine Ratio 23.7 (6-22); Blood Urea Nitrogen 18 mg/dL (7-17); Calcium 8.7 mg/dL (8.4-10.2); Carbon Dioxide 26 mmol/L (22-32); Chloride 103 mmol/L (98-107); Estimated Glomerular Filt Rate > 60 mL/min (>60); Glucose 144 mg/dL (80-110); HEMOLYSIS 19 (0-50); Potassium 5.1 mmol/L (3.4-5.1); Sodium 135 mmol/L (137-145)
[2023-02-08 07:26] VITALS: PULSE 77; O2SAT 97
[2023-02-08 08:00] VITALS: BP 115/50; PULSE 90; TEMP 36.2; O2SAT 95
--- NOTE | 2023-02-08 08:09 | PM.PNPO.1 ---
Subjective Subjective Date Patient Seen: 02/08/23 Time Patient Seen: 08:10 Interval history: Patient's pain is mild. Denies fever or chills. Patient has assistance at home. She has no steps in her home. Her chest feels a little congested and she had some cough last night and this morning. No shortness of breath or chest pain. Exam Vital Signs (past 8 hours): - 02/08/23 01:45 02/08/23 05:34 Temperature 97.0 F L 98.2 F Pulse Rate 79 82 Respiratory Rate 20 20 Blood Pressure 102/40 L 102/48 L Pulse Oximetry 100 97 Oxygen Flow Rate 3 3 Oxygen Delivery Method Nasal Cannula Oxygen Flow Rate 3 Narrative Exam Narrative: 82-year-old female resting comfortably in bed in no apparent distress. Dressing is clean, dry and intact. Motor functions intact distal bilateral lower extremities. Const General: cooperative and comfortable Nutritional Appearance: average body habitus Orientation: alert Resp Effort & Inspection: normal respiratory effort and able to speak in complete sentences Objective Labs 02/08/23 05:35 02/08/23 05:35 Labs: Laboratory Results - last 24 hr 02/08/23 02/08/23 05:35 05:35 WBC 15.0 H D RBC 2.73 L Hgb 8.9 L Hct 26.3 L MCV 96.3 MCH 32.4 MCHC 33.6 RDW 12.6 Plt Count 97 L Neut % (Auto) 85.6 H D Lymph % (Auto) 7.2 L D [place] % (Auto) 7.0 Eos % (Auto) 0.0 L Baso % (Auto) 0.2 Neut # (Auto) 47566 H Lymph # (Auto) 1100 [place] # (Auto) 1000 H Eos # (Auto) 0 Baso # (Auto) 0 Sodium 135 L Potassium 5.1 Chloride 103 Carbon Dioxide 26 BUN 18 H Creatinine 0.76 Estimated GFR > 60 BUN/Creatinine Ratio 23.7 H Glucose 144 H Calcium 8.7 PFSH Medical History Breast cancer (2001) Cervical radiculopathy Chickenpox (Unknown) Chronic back pain (1999) Colitis (1979) Fibromyalgia (12/04/01) GERD (gastroesophageal reflux disease) (1979) History of malignant neoplasm of breast (12/22/15) Irritable bowel syndrome without diarrhea (12/22/15) Kidney stones (1989) Measles (Unknown) Medicare annual wellness visit, subsequent Midline low back pain without sciatica (12/22/15) Mumps (Unknown) Osteoporosis (05/2017) Radiculopathy, thoracic region Sleep apnea (2009) 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 Social History marital status: household members: spouse housing: house Smoking Status: Never smoker alcohol intake: never Assessment & Plan Post-op Postoperative Procedures: Procedures Operation Date: 02/07/23 14:00 Actual Procedure Side Surgeon p Right Hip Hemiarthroplasty Right Sma Medrano MD Postoperative day: 1 Postoperative status: doing well Postoperative status narrative: Stable status post right dustin hip arthroplasty Postoperative plan narrative: Keep dressing clean and dry Mobilize with physical therapy, anterior hip precautions Encourage incentive spirometer Multimodal pain management Follow-up with Orthopedics in 2 weeks Disposition likely home when stable per hospitalist Quality VTE Deep Vein Thrombosis/Pulmonary Embolism Present on Admission: No
--- NOTE | 2023-02-08 08:22 | DI.RAD.S_ITS ---
PROCEDURE: XR CHEST 1V INDICATIONS: cough TECHNIQUE: One view of the chest was acquired. COMPARISON: None. FINDINGS: Surgical changes and devices: Prior vertebroplasty. Cholecystectomy clips. Lungs and pleura: Lungs are clear. No pleural effusions or pneumothorax. Mediastinum: Mediastinal contours appear within normal limits. Calcified aortic arch. Heart size is normal. Bones and chest wall: No suspicious bony lesions. Overlying soft tissues appear unremarkable. IMPRESSION: No acute cardiopulmonary abnormality. Dictated by: Ortiz Montaño M.D. on 02/08/2023 at 9:00 Approved by: Ortiz Montaño M.D. on 02/08/2023 at 9:01
--- NOTE | 2023-02-08 08:39 | PC.NURSE ---
Assess- Patient is alert and oriented x4. She denies pain this morning. Dressing to r.hip is cdi with aquacel. Patient is drinking and eating well at meals. She denies nausea. Will medicate patient before getting up and working with physical therapy.
[2023-02-08 08:56] LABS: Appearance Urine UA CLEAR; Bilirubin Urine UA NEGATIVE (NEGATIVE); Color Urine UA YELLOW; Glucose Urine UA NEGATIVE (Negative); Ketones Urine UA NEGATIVE (NEGATIVE); Leukocyte Esterase Urine UA NEGATIVE (NEGATIVE); Nitrite Urine UA NEGATIVE (Negative); Occult Blood Urine UA NEGATIVE (Negative); Protein Urine UA NEGATIVE (Negative); Urobilinogen Urine UA 0.2 E.U./dL (0.2)
[2023-02-08 09:00] LABS: pH Urine UA 5.5 (4.5-8.0)
[2023-02-08 09:04] LABS: Bacteria Urine Occasional (0-1); Culture Indicated Urine Cult Not Indicated; RBC Urine 0-1/HPF (0-5/HPF); Squamous Epithelial Cell Urine 0-1 /HPF (0-5/HPF); WBC Urine 0-1/HPF (0-5/HPF)
[2023-02-08] MEDS: ASPIRIN EC 81 MG TABLET PO ×2 (09:07→21:52)
[2023-02-08] MEDS: OXYCODONE IR 5 MG TABLET PO ×3 (09:07→16:48)
--- NOTE | 2023-02-08 10:15 | PT.IIE ---
Current Diagnoses Fracture of unspecified part of neck of right femur, initial encounter for closed fracture (02/07/23) Surgery Performed Operation Date: 02/07/23 14:00 Actual Procedures p Right Hip Hemiarthroplasty(Right) - Sam Medrano MD Surgical History (Last Reviewed 02/08/23 @ 08:11 by Vasile Meek PA-C) S/P appendectomy S/P hysterectomy S/P mastectomy Medical History (Last Reviewed 02/08/23 @ 08:11 by Vasile Meek PA-C) Breast cancer (2001) Cervical radiculopathy Chickenpox (Unknown) Chronic back pain (1999) Colitis (1979) Fibromyalgia (12/04/01) GERD (gastroesophageal reflux disease) (1979) History of malignant neoplasm of breast (12/22/15) Irritable bowel syndrome without diarrhea (12/22/15) Kidney stones (1989) Measles (Unknown) Medicare annual wellness visit, subsequent Midline low back pain without sciatica (12/22/15) Mumps (Unknown) Osteoporosis (05/2017) Radiculopathy, thoracic region Sleep apnea (2009) 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) Uncomplicated opioid use (03/12/17) Physical Therapy Inpatient Evaluation/Re-Eval M1 PT/OT-IP Prior Functional Status Start: 02/08/23 11:53 Freq: NEEDED Status: Active Protocol: Document 02/08/23 10:15 AB (Rec: 02/08/23 12:14 AB [id number]) Medical Review Prior Functional Status Medical History Reviewed Yes Communication able to make needs known; requires increase time to follow directions Mobility and Gait pt stated that she is independent with all mobilities and ambulation without AD; still able to drive prior to admission Social History Household Members spouse Living Arrangements Mobile home Number of Floors (Floors) One Floor Number of Stairs To Enter/Railing? ramp to enter Home Environment Standard Height Toilet,Walk in Shower,Ramp Home Equipment Manual Wheelchair,Bedside Commode,Shower Seat without Backrest,Hand Held Shower,Grab Bars Near Toilet,Grab Bars In Shower Additional Social History Comment pt stated that she plans to sleep on her recliner pt stated that his son is going to live with them and can provide 24/7 assistance; pt's daughter also will be staying for a few nights to assist M2 PT-IP Current Condition Start: 02/08/23 11:53 Freq: NEEDED Status: Active Protocol: Document 02/08/23 10:15 AB (Rec: 02/08/23 12:14 AB [id number]) Physical Therapy Current Condition Current Condition Evaluation Date 02/08/23 Treatment Diagnosis R fem neck fx s/p R hip hemiarthroplasty ant approach; difficulty in walking Onset Date 02/07/23 M3 PT-IP Subjective Start: 02/08/23 11:53 Freq: NEEDED Status: Active Protocol: Document 02/08/23 10:15 AB (Rec: 02/08/23 12:14 AB [email or web address]) Subjective Physical Therapy Visit Type Type Initial Evaluation Visit Start Time 10:15 Visit Stop Time 11:26 Total Visit Minutes 71 Number of CRITICAL CARE UNIT NURSE Visits 0 Physical Therapy Visit Comments Patient Comments agreeable to do PT Therapy Pain Assessment Pain When Pain Assessed During Mobility Pain Present Pain Present Pain Reported Location Right Hip Intensity 7 Scale Used Numeric (0 - 10) Pain Behaviors Facial Grimacing,Guarding, Wincing Pain Management Techniques Distraction,Modification of Treatment,Re-positioning, Timing of Activity with Medications M4 PT-IP Mobility and Gait Start: 02/08/23 11:53 Freq: NEEDED Status: Active Protocol: Document 02/08/23 10:15 AB (Rec: 02/08/23 12:14 AB [id number]) PT-Bed Mobility Assessment Rolling Type of Rolling Log Rolling Level of Assist Maximal Assistance Supine to Sit Supine to Sit Maximum Assistance PT-Transfer Assessment Sit to and From Stand Sit to and from Stand Maximum Assistance,1 Person Assistance,Use of Upper Extremities Equipment Transfer Assistive Device Front Wheeled Walker Orthotic/Prosthetic Devices or Brace: No Transfers Transfer Destination Chair Transfer Technique Stand Step Pivot Transfer Ability Level of Assist Maximum Assistance,1 Person Assistance,Use of Upper Extremities Comments Mobility Comments pt supine in bed and daughter in room. educated pt on R hip anterior precautions as well as back precautions ( pt has L4 compression fx). BP in supine: 103/50; O2 sat with 2L /min O2: 96%. pt does not use O2 at home. trial without supplemental O2 and O2 sat decreased to 83%. supplemental O2 provided again . pt completed log roll supine to sit max A and max cues. (+ ) SOB. O2 sat: 98-100%. c/o lightheadedness. BP checked: 156/73. pt completed sit to stand max A and max cues. pt required repeated cues and instructions . max A for standing balance using FWW. completed step transfer to chair max A and max cues. Pt continues to have SOB but O2 sat 100%. pt unable to ambulate due to fatigue but agreed to sit up on the chair. positioned pt on the chair. call light and table placed within reach. caregiver training set up with pt's daughter at 100pm today. informed nurse, hospitalist and managed care director regarding pt' s mobility and d/c plan. pt also wanting FWW to be dispensed to her here in the hospital through [facility]. managed care director informed. Gait Assessment Comments Gait Comments unable at this time; able to take steps for transfers PT-Balance Assessment Sitting Balance and Reactions Static Sitting Balance Ability Good Dynamic Sitting Balance Ability Fair Standing Balance and Reactions Static Standing Balance Ability Poor Dynamic Standing Balance Ability Poor Device Used FWW M5 PT-IP Objective Assessments Start: 02/08/23 11:53 Freq: NEEDED Status: Active Protocol: Document 02/08/23 10:15 AB (Rec: 02/08/23 12:14 AB [id number]) Orientation Orientation/Cognition Level of Alertness Alert Orientation Name,Place,Situation Language Function Ability No Deficits Noted Safety Awareness Decreased Safety Awareness Memory Description Short Term Impaired Gross Range of Motion Lower Extremity ROM Assessment Within Functional Limits Strength Lower Extremity Strength Assessment Right Impaired Hip 3-/5 Knee 3+/5 Sensation Assessment Sensation Gross Sensation WNL Muscle Tone Muscle Tone WNL Yes M6 PT-IP Treatment Start: 02/08/23 11:53 Freq: NEEDED Status: Active Protocol: Document 02/08/23 10:15 AB (Rec: 02/08/23 12:14 AB [email or web address]) Physical Therapy Treatment Exercises Exercises Heel Slides Education Education Provided Precautions,Weight Bearing Status,Post-Op Packet,Safety M7 PT-IP Assessment and Plan Start: 02/08/23 11:53 Freq: NEEDED Status: Active Protocol: Document 02/08/23 10:15 AB (Rec: 02/08/23 12:14 AB [email or web address]) PT Summary Assessment and Plan Potential Rehabilitation Potential Fair Status of Condition at Evaluation Evolving Summary Impairments Pain,ROM,Strength,Balance, Coordination,Sensation,Tone, Cognition,Bed Mobility, Transfers,Gait,Activity Tolerance Assessment Summary pt is an 82y/o female who fell at home and sustained a R femoral neck fx and L4 compression fx. pt underwent hip hemiarthroplasty anterior approach with anterior hip precautions and is WBAT. Currently, pt requiring max A with mobility using FWW and unable to ambulate at this time with c/o fatigue, (+) SOB requiring supplemental O2. pt plans to go home with family to assist. Caregiver training set up this afternoon at 1300 with daughter. d/c plan depending on pt's progress and if family will be able to safely assist pt. at this time d/c plan: SNF vs 17/12 assist at home and HHPT. Goals Bed Mobility Goal Standby Assistance Transfer Goal Standby Assistance,Front Wheeled Walker Gait Goal Standby Assistance,Front Wheel Walker Gait Distance 100 Other Goals improve bed mobility, transfers, ambulation 200 ft FWW mod I Days to Meet Goals 10 Frequency of Treatment Frequency Of Treatment Twice a Day Treatment Plan Physical Therapy Treatment Plan Bed Mobility Training,Transfer Training,Gait Training, Therapeutic Exercise,Balance Retraining,Post Op Education, Discharge Planning,Hot or Cold Pack,Neuromuscular Re-ed, Coordination Retraining,Manual Therapy Precautions Anterior Hip Precautions No Hip Extension,No Hip External Rotation Lumbar Precautions Log Roll,No Twisting,Limit Bending,Lifting Restriction of 10 lbs Weight Bearing Status Weight Bearing Status Weight Bear as Tolerated Allowed Weight Bearing Amount (enter % RLE WBAT or #) (%) Recommendations To Nursing Amount of Assist Needed 1 Person Assist Discharge Recommendations PT Discharge Recommendations Home with 17/12 Assist Available,Home Health,SNF Rehab,Home vs SNF Equipment Needed for Home Before FWW Discharge Transportation Needs at Discharge Private Vehicle,Wheelchair/ Cabulance
--- NOTE | 2023-02-08 11:57 | PM.PN.1 ---
Subjective Subjective Date Patient Seen: 02/08/23 Time Patient Seen: 08:00 Interval history: She has a mild cough, feels like phlegm stuck. She otherwise feels well. Her pain is controlled. She was placed on oxygen overnight. Exam Vital Signs (past 8 hours): - 02/08/23 05:34 02/08/23 08:00 02/08/23 07:26 Temperature 98.2 F 97.2 F L Pulse Rate 82 90 77 Respiratory Rate 20 Blood Pressure 102/48 L 115/50 L Pulse Oximetry 97 95 97 Oxygen Delivery Method Nasal Cannula Oxygen Flow Rate 3 2 Fraction of Inspired Oxygen 28 Fraction of Inspired Oxygen 28 SaO2/FiO2 Ratio 346 Oxygen Delivery Method Nasal Cannula Oxygen Flow Rate 2 Narrative Exam Narrative: GEN: in distress from pain CV: regular rate and rhythm PULM: clear bilaterally ABD: soft, nontender EXT: R hip tender to palpation Objective Labs 02/08/23 05:35 02/08/23 05:35 Labs: Laboratory Results - last 24 hr 02/08/23 02/08/23 02/08/23 05:35 05:35 08:36 WBC 15.0 H D RBC 2.73 L Hgb 8.9 L Hct 26.3 L MCV 96.3 MCH 32.4 MCHC 33.6 RDW 12.6 Plt Count 97 L Neut % (Auto) 85.6 H D Lymph % (Auto) 7.2 L D [place] % (Auto) 7.0 Eos % (Auto) 0.0 L Baso % (Auto) 0.2 Neut # (Auto) 08417 H Lymph # (Auto) 1100 [place] # (Auto) 1000 H Eos # (Auto) 0 Baso # (Auto) 0 Sodium 135 L Potassium 5.1 Chloride 103 Carbon Dioxide 26 BUN 18 H Creatinine 0.76 Estimated GFR > 60 BUN/Creatinine Ratio 23.7 H Glucose 144 H Calcium 8.7 Urine Color Yellow Urine Appearance Clear Urine pH 5.5 Ur Specific [place] 1.010 Urine Protein Negative Urine Glucose (UA) Negative Urine Ketones Negative Urine Occult Blood Negative Urine Nitrate Negative Urine Bilirubin Negative Urine Urobilinogen 0.2 Ur Leukocyte Esterase Negative Urine RBC 0-1/hpf Urine WBC 0-1/hpf Ur Squamous Epith Cells 0-1 /hpf Urine Bacteria Occasional (0-1) Ur Culture Indicated? 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 Social History marital status: household members: spouse housing: house Smoking Status: Never smoker alcohol intake: never Assessment & Plan Assessment & Plan narrative: 1. Right hip fracture, acute -xray noted mildly displaced right femoral neck fracture -ortho consulted -s/p repair on 02/07 -per their recs, wbat, aspirin bid 2. Hypertension -hold home medications as her blood pressure is not high 3. GERD -restart PPI after OR 4. FRANCISCO -cpap at night 5. Leukocytosis -UA negative, chest xray with no pneumonia -possibly secondary to stress from surgery -trend 6. Anemia -suspect secondary to surgery -no evidence of acute bleeding -trend 7. Post-op hypoxemia -chest xray with no acute abnormalities -encourage out of bed and incentive spirometry -if not improving, will eval with CT Quality VTE Deep Vein Thrombosis/Pulmonary Embolism Present on Admission: No
[2023-02-08 12:00] VITALS: BP 142/58; PULSE 97; RESP 18; TEMP 37.3; O2SAT 96
--- NOTE | 2023-02-08 12:06 | OT.IP.EVAL ---
Current Diagnoses Fracture of unspecified part of neck of right femur, initial encounter for closed fracture (02/07/23) Surgery Performed Operation Date: 02/07/23 14:00 Actual Procedures p Right Hip Hemiarthroplasty(Right) - Sam Medrano MD Past Medical History (Last Reviewed 02/08/23 @ 08:11 by Vasile Meek PA-C) Breast cancer (2001) Cervical radiculopathy Chickenpox (Unknown) Chronic back pain (1999) Colitis (1979) Fibromyalgia (12/04/01) GERD (gastroesophageal reflux disease) (1979) History of malignant neoplasm of breast (12/22/15) Irritable bowel syndrome without diarrhea (12/22/15) Kidney stones (1989) Measles (Unknown) Medicare annual wellness visit, subsequent Midline low back pain without sciatica (12/22/15) Mumps (Unknown) Osteoporosis (05/2017) Radiculopathy, thoracic region Sleep apnea (2009) 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 Activities of Daily Living and IADL's Independent with all ADL, IADL , taking care of her who is on Hospice, and still drives. Social History Household Members spouse Living Arrangements Mobile home Number of Stairs To Enter/Railing? Pt has a ramp to enter the mobile home. Home Environment Standard Height Toilet,Walk in Shower Home Equipment Manual Wheelchair,Bedside Commode,Hand Held Shower, Medical Grade Shoemaker,Sock Aid,Grab Bars Near Toilet,Grab Bars In Shower Additional Social History Comment Pt's son to stay with them to assist. Pt's daughter to do caregiver training with PT later. Pt to go home with daughter's suburban which has a running step to back up into the car. M2 OT-IP Current Condition Start: 02/08/23 12:08 Freq: Status: Active Protocol: Document 02/08/23 11:35 [facility] (Rec: 02/08/23 13:09 [facility] [id number]) Occupational Therapy Current Condition Current Condition Evaluation Date 02/08/23 Treatment Diagnosis Right femoral neck Fx, mild L4 compression fracture Post Operative Precautions Anterior Hip Precautions No Hip Extension,No Hip External Rotation Lumbar Precautions Log Roll,No Twisting,Limit Bending,Lifting Restriction of 10 lbs,Gait Belt above Incisional Area Weight Bearing Status Weight Bearing Status Weight Bear as Tolerated M3 OT- IP Subjective and Pain Start: 02/08/23 12:08 Freq: Status: Active Protocol: Document 02/08/23 11:35 [facility] (Rec: 02/08/23 13:09 [facility] [id number]) OT- Subjective Occupational Therapy Visit Type Type Initial Evaluation Visit Start Time 11:35 Visit Stop Time 12:06 Total Visit Minutes 31 Occupational Therapy Visit Comments Patient Comments Pt agreed to get up with OT, pt's daughter present in the room. Patient/Caregiver Goals To go home. OT Pain Assessment Pain When Pain Assessed During Mobility Pain Present Pain Present Pain Reported Location hip Intensity 4 Scale Used Numeric (0 - 10) M4 OT- IP ADL's Start: 02/08/23 12:08 Freq: Status: Active Protocol: Document 02/08/23 11:35 [facility] (Rec: 02/08/23 13:09 [facility] [id number]) OT [id number] Comments OT Self-Feeding Comments No issues anticipated. OT ADL-Grooming General Evaluation Grooming Ability Independent Areas Needing Assistance Retrieving/Set-up of Grooming Items Comments OT Grooming Comments While seated. Pt requesting that the nurse bring her saline to be able to rinse her eyes out. Nursing notified. OT ADL-Oral Care General Eval Oral Care Ability Independent Areas of Assistance Retrieving/Set-Up of Items Comments Oral Care Comments While seated. OT ADL-Dressing General Eval Lower Body Dressing Ability Maximum Assistance Areas Needing Assistance Socks Comments OT Dressing Comments Able to educate pt not to bend over or cross her RLE over in order to mehnaz/doff clothing. At this time best to have assist or use fo LB dressing equipment. OT ADL-Toileting Comments OT Toileting Comments Pt not having to go. Pt has a BSC at home. Educated at this time would be best to have assist for hygiene needs or use of toilet paper aid. OT ADL-Bathing Comments OT Bathing Comments Not performed. M5 OT- IP IADL's Start: 02/08/23 12:08 Freq: Status: Active Protocol: Document 02/08/23 11:35 [facility] (Rec: 02/08/23 13:09 [facility] [id number]) OT-Instrumental Activities of Daily Living Deficits IADL Deficits Identified Deficits Home Safety Awareness Awareness of Need for Assistance at Home Good Awareness Ability to Problem Solve Emergency Able to Problem Solve Situations Home Safety Comments Pt needing occasional reminders for safety for FWW use and hip precautions. M6 OT- IP Functional Cognition Start: 02/08/23 12:08 Freq: Status: Active Protocol: Document 02/08/23 11:35 [facility] (Rec: 02/08/23 13:09 [facility] [id number]) Cognitive Factors Limiting Selfcare Function Cognitive Ability Level of Alertness Alert Patient Orientation Name,Place,Situation Attention Span Ability Capable of Focused Attention, Capable of Sustained Attention Ability to Follow Commands Able to Follow One Step Commands with Increased Time, Able to Follow One Step Commands with Repetition Safety Awareness Decreased Ability to Apply Precautions Cognitive Comments Cognitive Assessment Comments Pt able to state her precautions well. However when pt getting up needing reminders for hand placement and sequencing of the FWW. OT- Vision and Hearing OT- Hearing Assessment OT- Hearing Assessment WFL OT- Vision Assessment Visual Acuity Glasses All The Time,No Vision Aides At Hospital M7 OT- IP Mobility and Balance Start: 02/08/23 12:08 Freq: Status: Active Protocol: Document 02/08/23 11:35 [facility] (Rec: 02/08/23 13:09 [facility] [id number]) OT-Transfer Assessment Sit to and From Stand Sit to and from Stand Moderate Assistance,Maximum Assistance Comments Mobility Comments Pt MOD/MAXA to stand from the recliner to the FWW. Pt needing JOHN when up on her feet and able to take a couple steps forwards and back and vc to follow her anterior precautions. OT- Balance Assessment Sitting Balance and Reactions Static Sitting Balance Ability Good Dynamic Sitting Balance Ability Good Standing Balance and Reactions Static Standing Balance Ability Fair Dynamic Standing Balance Ability Fair M8 OT- IP Objective Assessments Start: 02/08/23 12:08 Freq: Status: Active Protocol: Document 02/08/23 11:35 [facility] (Rec: 02/08/23 13:09 [facility] [id number]) OT Gross Range of Motion Upper Extremity Range of Motion Assessment Within Functional Limits OT-Muscle Tone Assessment Muscle Tone WNL Yes M9 OT- IP Assessment and Plan Start: 02/08/23 12:08 Freq: Status: Active Protocol: Document 02/08/23 11:35 [facility] (Rec: 02/08/23 13:09 [facility] [id number]) OT Summary Assessment and Plan Potential Rehabilitation Potential Good Analytic Complexity at Evaluation Moderate Summary OT Impairments Pain,Strength,Balance, Functional Mobility,Dressing, Toileting,Bathing,Toilet Transfers,Shower Transfers, Activity Tolerance Progress Towards Goals Progressing Toward Goals Assessment Summary Pt MOD complexity and main barriers are pain, needing extensive assist to stand from lower surfaces to the FWW. Pt will need extensive assist for ADL needs as well. Pt wanting to go home with 24/7 assist with home health. Pt will benefit form a FWW for home use. Goals Self-Feeding Goal Independent Grooming Goal Independent Dressing Goal Independent,Medical Grade Shoemaker,Sock Aid Toileting Goal Independent Bathing Goal Standby Assistance Toilet Transfer Goal Independent Shower Transfer Goal Standby Assistance Patient/Caregiver Education Goal Demonstrate Post-Op Precautions,Caregiver Independent Assisting Patient Days to Meet Goals 15 Frequency of Treatment Frequency Of Treatment Once a Day Treatment Plan OT Treatment Plan ADL Training,Functional Mobility,Patient/Family Education,Discharge Planning Discharge Recommendations OT Discharge Recommendations Home with 24/7 Assist Available,Home Health Home Equipment Needs FWW Transportation Needs at Discharge Private Vehicle
--- NOTE | 2023-02-08 13:00 | PT.IPTN ---
Current Diagnoses Fracture of unspecified part of neck of right femur, initial encounter for closed fracture (02/07/23) Surgery Performed Operation Date: 02/07/23 14:00 Actual Procedures p Right Hip Hemiarthroplasty(Right) - Sam Medrano MD Physical Therapy Treatment Note M2 PT-IP Current Condition Start: 02/08/23 11:53 Freq: NEEDED Status: Active Protocol: Document 02/08/23 10:15 [facility] (Rec: 02/08/23 12:14 AB [email or web address]) Physical Therapy Current Condition Current Condition Evaluation Date 02/08/23 Treatment Diagnosis R fem neck fx s/p R hip hemiarthroplasty ant approach; difficulty in walking Onset Date 02/07/23 M3 PT-IP Subjective Start: 02/08/23 11:53 Freq: NEEDED Status: Active Protocol: Document 02/08/23 13:00 [facility] (Rec: 02/08/23 14:28 AB [email or web address]) Subjective Physical Therapy Visit Type Type Treatment Note Visit Start Time 13:00 Visit Stop Time 13:57 Total Visit Minutes 57 Number of RICE DRIER Visits 0 Physical Therapy Visit Comments Patient Comments pt agreeable to do PT Therapy Pain Assessment Pain When Pain Assessed During Mobility Pain Present Pain Present Pain Reported Location Right Hip Intensity 10 Scale Used Numeric (0 - 10) Pain Management Techniques Apply Cold,Distraction, Modification of Treatment,Re- positioning,Timing of Activity with Medications M4 PT-IP Mobility and Gait Start: 02/08/23 11:53 Freq: NEEDED Status: Active Protocol: Document 02/08/23 13:00 [facility] (Rec: 02/08/23 14:28 AB [email or web address]) PT-Bed Mobility Assessment Rolling Type of Rolling Log Rolling Level of Assist Maximal Assistance Sit to Supine Sit to Supine Maximum Assistance,Bedrails PT-Transfer Assessment Sit to and From Stand Sit to and from Stand Minimal Assistance,Moderate Assistance,1 Person Assistance ,Use of Upper Extremities Equipment Transfer Assistive Device Gait Belt,Front Wheeled Walker Orthotic/Prosthetic Devices or Brace: No Transfers Transfer Destination Bed Transfer Technique Stand Step Pivot Transfer Ability Level of Assist Moderate Assistance,Maximum Assistance,1 Person Assistance ,Use of Upper Extremities Comments Mobility Comments pt sitting on chair. daughter in room. pt on RA with O2 sat : 87-94%. cued for deep breathing. reviewed R anterior hip and back precautions. caregiver training initiated. educated daughter on safety belt use and how to assist pt. daughter was able to put safety belt on. pt completed sit to stand mod A and max cues. PT provided some assistance for safety. pt has posterior LOB requiring mod A . pt c/o increase hip pain 10 /10 and stated that she just wants to go back to bed. pt able to take 2 steps using FWW max A for transfers but has to sit back on chair and unable to complete transfer to bed. pt rested on the chair. nurse informed regarding pain and need for pain meds. nurse gave pt pain meds. pt tends to get distracted easily. educated on safety and focusing on task. pt completed sit to stand mod A and max cues. able to take steps using FWW mod to max A and max cues. completed log roll sit to supine max A and max cues. positioned pt on the chair. call light and table placed within reach. informed pt regarding d/c recommendation of SNF at this time but depending on progress . pt and daughter agreed. set up a caregiver training tomorrow at 10 am. caseworker protective services informed M5 PT-IP Objective Assessments Start: 02/08/23 11:53 Freq: NEEDED Status: Active Protocol: Document 02/08/23 10:15 [facility] (Rec: 02/08/23 12:14 AB [id number]) Orientation Orientation/Cognition Level of Alertness Alert Orientation Name,Place,Situation Language Function Ability No Deficits Noted Safety Awareness Decreased Safety Awareness Memory Description Short Term Impaired Gross Range of Motion Lower Extremity ROM Assessment Within Functional Limits Strength Lower Extremity Strength Assessment Right Impaired Hip 3-/5 Knee 3+/5 Sensation Assessment Sensation Gross Sensation WNL Muscle Tone Muscle Tone WNL Yes M6 PT-IP Treatment Start: 02/08/23 11:53 Freq: NEEDED Status: Active Protocol: Document 02/08/23 13:00 [facility] (Rec: 02/08/23 14:28 [facility] [id number]) Physical Therapy Treatment Education Education Provided Precautions,Weight Bearing Status,Safety M7 PT-IP Assessment and Plan Start: 02/08/23 11:53 Freq: NEEDED Status: Active Protocol: Document 02/08/23 13:00 [facility] (Rec: 02/08/23 14:28 AB [id number]) PT Summary Assessment and Plan Potential Rehabilitation Potential Fair Summary Impairments Pain,ROM,Strength,Balance, Coordination,Sensation,Tone, Cognition,Bed Mobility, Transfers,Gait,Activity Tolerance Progress Towards Goals Slow Progress due to Pain,Slow Progress due to Activity Tolerance Assessment Summary pt requiring mod to max A for transfers using FWW and unable to ambulate again this afternoon with c/o increase R hip pain 10/10 and unable to tolerate much activity. Caregiver training set up again for tomorrow at 10 am but with current level of assistance and mobility, pt most possibly will be needing SNF rehab. will continue to assess progress. Goals Bed Mobility Goal Standby Assistance Transfer Goal Standby Assistance,Front Wheeled Walker Gait Goal Standby Assistance,Front Wheel Walker Gait Distance 100 Other Goals improve bed mobility, transfers, ambulation 200 ft FWW mod I Days to Meet Goals 10 Frequency of Treatment Frequency Of Treatment Twice a Day Treatment Plan Physical Therapy Treatment Plan Bed Mobility Training,Transfer Training,Gait Training, Therapeutic Exercise,Balance Retraining,Post Op Education, Discharge Planning,Hot or Cold Pack,Neuromuscular Re-ed, Coordination Retraining,Manual Therapy Other Recommendations and Next Treatment Caregiver trainin/16 @ 10 Focus am. Precautions Anterior Hip Precautions No Hip Extension,No Hip External Rotation Lumbar Precautions Log Roll,No Twisting,Limit Bending,Lifting Restriction of 10 lbs Weight Bearing Status Weight Bearing Status Weight Bear as Tolerated Allowed Weight Bearing Amount (enter % RLE WBAT or #) (%) Recommendations To Nursing Amount of Assist Needed 1 Person Assist Discharge Recommendations PT Discharge Recommendations Home with 17/12 Assist Available,Home Health,SNF Rehab,Home vs SNF Equipment Needed for Home Before FWW if pt goes home Discharge Transportation Needs at Discharge Private Vehicle,Wheelchair/ Cabulance
[2023-02-08 20:25] VITALS: BP 125/53; PULSE 107; RESP 18; TEMP 37.4; O2SAT 93
[2023-02-08] MEDS: PANTOPRAZOLE DR 20 MG TABLET PO (21:52)
[2023-02-08] MEDS: CALCIUM CARBONATE 500 MG TAB 1000 MG PO (21:52)
[2023-02-08] MEDS: ACETAMINOPHEN 325 MG TABLET 650 MG PO (21:53)
[2023-02-09 05:24] LABS: Hematocrit 24.4 % (36-46); Hemoglobin 8.4 g/dL (12.0-16.0); Mean Corpuscular HGB Conc 34.5 % (30-36); Mean Corpuscular Hemoglobin 32.8 PG (26-34); Mean Corpuscular Volume 95.1 fL (80-100); Platelet Count 136 X10^3/uL (150-400); Red Blood Cell Count 2.56 X10^6/uL (4.0-5.2); Red Cell Distribution Width 12.5 % (11.6-14.8); White Blood Cell Count 12.6 X10^3/uL (4.5-11.0)
[2023-02-09 05:30] VITALS: BP 125/49; PULSE 103; RESP 18; TEMP 36.7; O2SAT 92
[2023-02-09 05:36] LABS: BUN Creatinine Ratio 19.8 (6-22); Blood Urea Nitrogen 17 mg/dL (7-17); Calcium 8.9 mg/dL (8.4-10.2); Carbon Dioxide 30 mmol/L (22-32); Chloride 99 mmol/L (98-107); Estimated Glomerular Filt Rate > 60 mL/min (>60); Glucose 140 mg/dL (80-110); HEMOLYSIS < 15 (0-50); Sodium 134 mmol/L (137-145)
[2023-02-09] MEDS: PANTOPRAZOLE DR 20 MG TABLET PO (06:11)
[2023-02-09 08:00] VITALS: BP 107/47; PULSE 101; RESP 17; TEMP 37; O2SAT 91
[2023-02-09] MEDS: ASPIRIN EC 81 MG TABLET PO (08:11)
[2023-02-09] MEDS: ACETAMINOPHEN 325 MG TABLET 650 MG PO (09:16)
[2023-02-09] MEDS: OXYCODONE IR 5 MG TABLET PO ×2 (09:17→12:10)
--- NOTE | 2023-02-09 09:45 | PT.IPTN ---
Current Diagnoses Fracture of unspecified part of neck of right femur, initial encounter for closed fracture (02/07/23) Surgery Performed Operation Date: 02/07/23 14:00 Actual Procedures p Right Hip Hemiarthroplasty(Right) - Sam Medrano MD Physical Therapy Treatment Note M2 PT-IP Current Condition Start: 02/08/23 11:53 Freq: NEEDED Status: Active Protocol: Document 02/08/23 10:15 AB (Rec: 02/08/23 12:14 AB [id number]) Physical Therapy Current Condition Current Condition Evaluation Date 02/08/23 Treatment Diagnosis R fem neck fx s/p R hip hemiarthroplasty ant approach; difficulty in walking Onset Date 02/07/23 M3 PT-IP Subjective Start: 02/08/23 11:53 Freq: NEEDED Status: Active Protocol: Document 02/09/23 10:22 TS (Rec: 02/09/23 10:50 TS [id number]) Subjective Physical Therapy Visit Type Type Treatment Note Visit Start Time 09:45 Visit Stop Time 10:15 Total Visit Minutes 30 Notes Step-daughter present for caregiver training Vitals: BP 116/51 supine, 105/ 45 sitting Number of PACKER FUSER Visits 1 Physical Therapy Visit Comments Patient Comments Pt found resting in bed, reports she is feeling better and is hoping to return home where her spouse is currently on hospice, pt agreeable to PT . Therapy Pain Assessment Pain When Pain Assessed During Mobility Pain Present Pain Present Pain Reported Location Right Hip Intensity 6 Scale Used Numeric (0 - 10) Description Burning Pain Behaviors Facial Grimacing,Guarding, Wincing Pain Management Techniques Apply Cold,Distraction, Modification of Treatment,Re- positioning,Timing of Activity with Medications M4 PT-IP Mobility and Gait Start: 02/08/23 11:53 Freq: NEEDED Status: Active Protocol: Document 02/09/23 10:22 TS (Rec: 02/09/23 10:50 TS [id number]) PT-Bed Mobility Assessment Rolling Type of Rolling Log Rolling Level of Assist Minimal Assistance Supine to Sit Supine to Sit Moderate Assistance,1 Person Assistance Scooting Scooting to Edge of Bed Contact Guard Assistance PT-Transfer Assessment Sit to and From Stand Sit to and from Stand Minimal Assistance,1 Person Assistance,Use of Upper Extremities Equipment Transfer Assistive Device Gait Belt,Front Wheeled Walker Orthotic/Prosthetic Devices or Brace: No Comments Mobility Comments Pt resting in bed, agreeable to PT. BP in supine 116/51.She recalled 1/2 hip precautions( recalled no hip ext) and 1/3 back precautions(no twisting) prior to mobility. Pt performed logroll with Anupam from caregiver, provided cues for handplacement on pt and sequencing of logroll. Supine to sit ModA for uprighting trunk, provided cues and caregiver performed supine to sit with pt. Pt scooted to EOB CGA, caregiver donned gait belt. Sit to stand with FWW Anupam, pt has some retroleaning . She ambulated ~20' in room CGA with cues for FWW management, pt did report some dizziness but not significant and thermal changes, denied SOB. Pt sat in bed side chair, BP taken 105/45. Pt was left in chair with caregiver in room, Rn notified of BP. Gait Assessment Gait Gait Assistance Required: Contact Guard Assist,1 Person Assist Distance (Feet) 20 Able to Maintain Weight Bearing Status Yes During Gait Assistive Devices Assistive Device Gait Belt,Front Wheeled Walker Orthotic/Prosthetic Devices or Brace: No Gait Deviations General Gait Pattern Antalgic,Decreased Stride Length,Decreased Feet Clearance,Step-to Gait Comments Gait Comments See mobility comments PT-Balance Assessment Sitting Balance and Reactions Static Sitting Balance Ability Good Dynamic Sitting Balance Ability Good Standing Balance and Reactions Static Standing Balance Ability Good Dynamic Standing Balance Ability Fair Device Used FWW M5 PT-IP Objective Assessments Start: 02/08/23 11:53 Freq: NEEDED Status: Active Protocol: Document 02/08/23 10:15 [facility] (Rec: 02/08/23 12:14 AB [id number]) Orientation Orientation/Cognition Level of Alertness Alert Orientation Name,Place,Situation Language Function Ability No Deficits Noted Safety Awareness Decreased Safety Awareness Memory Description Short Term Impaired Gross Range of Motion Lower Extremity ROM Assessment Within Functional Limits Strength Lower Extremity Strength Assessment Right Impaired Hip 3-/5 Knee 3+/5 Sensation Assessment Sensation Gross Sensation WNL Muscle Tone Muscle Tone WNL Yes M6 PT-IP Treatment Start: 02/08/23 11:53 Freq: NEEDED Status: Active Protocol: Document 02/09/23 10:22 TS (Rec: 02/09/23 10:50 TS [id number]) Physical Therapy Treatment Education Education Provided Precautions,Weight Bearing Status,Safety M7 PT-IP Assessment and Plan Start: 02/08/23 11:53 Freq: NEEDED Status: Active Protocol: Document 02/09/23 10:22 TS (Rec: 02/09/23 10:50 TS [id number]) PT Summary Assessment and Plan Potential Rehabilitation Potential Good Summary Impairments Pain,ROM,Strength,Balance, Coordination,Sensation,Tone, Cognition,Bed Mobility, Transfers,Gait,Activity Tolerance Progress Towards Goals Progressing Toward Goals Assessment Summary Pt is making some progress with her mobility this session . She progressed her bed mobility to Anupam for logroll and ModA for supine to sit to the side of the bed. She performed sit to stand Anupam w/ FWW, has some retroleaning but no LOB. She progressed her gait to ~20' in room CGA, she demonstrated good carryover of step sequencing with some cueing for FWW management. Step-daughter was present for caregiver training. She was instructed and performed bed mobility, sit to stands and gait with pt. She did well with pt and feels comfortable providing the assist she needs . She has some difficulty recalling her precautions, she recalled 1/2 hip precautions( recalled hip ext) and 1/3 back precautions(recalled twisting ). She reported some dizziness with gait but that it was not significant, her BP is was 166/51 in supine and 105/45 sitting after mobility. RN was notified of BP and symptoms. PT is recommending home w/17/12 assist and HH. Pt has good support at home and would like to return home. Goals Bed Mobility Goal Standby Assistance Transfer Goal Standby Assistance,Front Wheeled Walker Gait Goal Standby Assistance,Front Wheel Walker Gait Distance 100 Other Goals improve bed mobility, transfers, ambulation 200 ft FWW mod I Days to Meet Goals 10 Frequency of Treatment Frequency Of Treatment Twice a Day Treatment Plan Physical Therapy Treatment Plan Bed Mobility Training,Transfer Training,Gait Training, Therapeutic Exercise,Balance Retraining,Post Op Education, Discharge Planning,Hot or Cold Pack,Neuromuscular Re-ed, Coordination Retraining,Manual Therapy Other Recommendations and Next Treatment Caregiver trainin/16 @ 10 Focus am. Precautions Anterior Hip Precautions No Hip Extension,No Hip External Rotation Lumbar Precautions Log Roll,No Twisting,Limit Bending,Lifting Restriction of 10 lbs Weight Bearing Status Weight Bearing Status Weight Bear as Tolerated Allowed Weight Bearing Amount (enter % RLE WBAT or #) (%) Recommendations To Nursing Amount of Assist Needed 1 Person Assist Discharge Recommendations PT Discharge Recommendations Home with 17/12 Assist Available,Home Health Equipment Needed for Home Before FWW if pt goes home Discharge Transportation Needs at Discharge Private Vehicle,Wheelchair/ Cabulance
--- NOTE | 2023-02-09 10:34 | PM.PNPO.1 ---
Subjective Subjective Interval history: Patient is resting comfortably in bed this morning. She states she is having some pain that is well controlled with medication. She states she is been working with physical therapy and is motivated to keep improving. Patient prefers to discharge to home if safe and physically able. Denies numbness and tingling to the distal extremities, denies chest pain and shortness of breath. Exam Vital Signs (past 8 hours): - 02/09/23 05:30 02/09/23 07:53 02/09/23 08:00 Temperature 98.0 F 98.6 F Pulse Rate 103 H 101 H Respiratory Rate 18 17 Blood Pressure 125/49 L 107/47 L Pulse Oximetry 92 91 Oxygen Delivery Method Room Air Oxygen Flow Rate 0 Fraction of Inspired Oxygen 28 SaO2/FiO2 Ratio 346 Oxygen Delivery Method Room Air Oxygen Flow Rate 0 Narrative Exam Narrative: Pleasant 82-year-old female. Awake, alert, and oriented. Intraoperative right anterior hip bandage clean, dry, and intact. Strength and sensation intact to bilateral lower extremities. Bilateral calves soft, compressible, nontender with no palpable cords or masses. Objective Labs 02/09/23 04:48 02/09/23 04:48 Labs: Laboratory Results - last 24 hr 02/09/23 02/09/23 04:48 04:48 WBC 12.6 H RBC 2.56 L Hgb 8.4 L Hct 24.4 L MCV 95.1 MCH 32.8 MCHC 34.5 RDW 12.5 Plt Count 136 L Sodium 134 L Potassium 4.0 Chloride 99 Carbon Dioxide 30 BUN 17 Creatinine 0.86 Estimated GFR > 60 BUN/Creatinine Ratio 19.8 Glucose 140 H Calcium 8.9 PFSH Medical History Breast cancer (2001) Cervical radiculopathy Chickenpox (Unknown) Chronic back pain (1999) Colitis (1979) Fibromyalgia (12/04/01) GERD (gastroesophageal reflux disease) (1979) History of malignant neoplasm of breast (12/22/15) Irritable bowel syndrome without diarrhea (12/22/15) Kidney stones (1989) Measles (Unknown) Medicare annual wellness visit, subsequent Midline low back pain without sciatica (12/22/15) Mumps (Unknown) Osteoporosis (05/2017) Radiculopathy, thoracic region Sleep apnea (2009) 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 Social History marital status: household members: spouse housing: house Smoking Status: Never smoker alcohol intake: never Assessment & Plan Post-op Postoperative Procedures: Procedures Operation Date: 02/07/23 14:00 Actual Procedure Side Surgeon p Right Hip Hemiarthroplasty Right Sam Medrano MD Postoperative day: 2 Postoperative status: doing well Postoperative status narrative: Patient is progressing as expected following right anterior hip hemiarthroplasty, postop day 2. Postoperative plan: routine post-op care Postoperative plan narrative: Weight-bearing as tolerated, continue outpatient physical therapy. Continue anterior hip precautions. Continue multimodal pain regimen as needed. Aspirin 81 mg b.i.d. for 4 weeks. Follow up with Orthopedics 2 weeks after surgery. Quality VTE Deep Vein Thrombosis/Pulmonary Embolism Present on Admission: No
--- NOTE | 2023-02-09 11:15 | CM.DPNOTE ---
DC Note Discharge home today w/supportive family and caregivers to assist once home Patient has been cleared by therapies for this plan. Patient and family request HH services No HH preference, placed call to [facility] as they accept patient's [facility], spoke w/Juan Jose and discussed referral for HH RN/PT/OT Faxed demo sheet and completed and signed F2F per Juan Jose's request Plan: Discharge home w/family and caregivers to assist, [facility], family to transport home JW
--- NOTE | 2023-02-09 14:30 | P.DS_ITS ---
History of Present Illness History of Present Illness Chief complaint: fall and bonked head Narrative: Per history and physical: Ms. Katz is an 82W with PMH HTN, chronic neck pain who presents to the hospital after a fall. 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 He was unsteady this morning and fell into her and this caused her to fall and land on her right hip and hit her head. She did not lose consciousness. She had significant hip pain afterwards, unable to weight bear. She was brought in by EMS. In the ED workup was done, vitals notable for afebrile, heart rate 80s, blood pressure 200s/90s. Sats 99% on room air. Labs reviewed by me and notable for WBC 8.6, hgb 11.7, plts 210. Creatinine 0.88. Hip xray showed mildly displaced right femoral neck fracture. CT head showed no acute process. She was admitted for further treatment. Discharge Providers Provider Date of admission: 02/07/23 07:33 Discharge Date: 02/09/23 Primary care physician: Oliver Blank MD Consults: 02/07/23 13:32 Consult to Anesthesiology Routine Comment: Consulting Provider: Anesthesiologist Reason for consultation: Regional block for post operative pain control 02/07/23 17:51 Consult to Discharge Planning Routine Comment: Consult to Physical Therapy Evaluate & Treat Comment: Physician Instructions: post op HERNAN protocol 02/08/23 07:53 Consult to Orthopedic Surgery Routine Comment: Per NII Meek request Consulting Provider: Sam Medrano Reason for consultation: Hip surgery Has provider been notified: Yes 02/08/23 10:14 Consult to Occupational Therapy Evaluate & Treat Comment: Physician Instructions: Evaluate and treat 02/08/23 11:44 Consult to Physical Therapy Evaluate & Treat Comment: Physician Instructions: walker for home use Discharge provider: Betty Villegas MD Summary Hospital Course Discharge Diagnosis: 1. Acute right hip fracture, postoperative day 2. From right hip hemiarthroplasty 2. Hypertension 3. GERD 4. Obstructive sleep apnea on CPAP at night 5. Leukocytosis, likely stress induced 6. Anemia 7. Postoperative hypoxemia, likely secondary to atelectasis Hospital Course: Patient was admitted with an acute right hip fracture after her fell into her knocking her to the ground. She crawled from her bathroom where it occurred into the bedroom and was able to call 911. Her is on hospice. She was brought into the emergency department, where she was found to have a right femoral neck fracture. She underwent right hip hemiarthroplasty on 02/07/2023. She was evaluated by Physical therapy on 02/08/2023, in hopes of being able to discharge home. However her pain was too significant for her to participate well in therapies. Follow-up caregiver training was arranged for 02/09/2023. She reported dramatic improvement in her symptoms. She was able to ambulate without much difficulty. Ear be felt she was safe for home discharge. She is discharging home with home health services. She has multiple family m embers coordinated to come assist her with care at home both for herself while she is rehabilitating, and for her to needs ongoing care. Patient is discharged in stable condition. Status at Discharge Cognitive/behavioral status at discharge: at baseline, oriented Functional status at discharge: uses cane/walker Overall status at discharge: patient is progressing back to baseline Time Spent with Patient Time spent: Greater than 30 minutes Exam Vital Signs (past 8 hours): - 02/09/23 07:53 02/09/23 08:00 Temperature 98.6 F Pulse Rate 101 H Respiratory Rate 17 Blood Pressure 107/47 L Pulse Oximetry 91 Oxygen Delivery Method Room Air Oxygen Flow Rate 0 Fraction of Inspired Oxygen 28 SaO2/FiO2 Ratio 346 Oxygen Delivery Method Room Air Oxygen Flow Rate 0 Narrative Exam Narrative: GEN: Very pleasant elderly female, Alert and oriented x 3, NAD HEENT:NC, Face symmetric CHEST: Respiratory excursions symmetric, CTAB CV: RRR, no M/R/G ABD: Soft, NT/ND, BT present in all 4 quadrants, no organomegaly or masses EXTR: warm, well perfused, no C/C/E SKIN: warm and dry, no rash NEURO: Alert and oriented x 3, nonfocal Objective Labs 02/09/23 04:48 02/09/23 04:48 Labs: Laboratory Results - last 24 hr 02/09/23 02/09/23 04:48 04:48 WBC 12.6 H RBC 2.56 L Hgb 8.4 L Hct 24.4 L MCV 95.1 MCH 32.8 MCHC 34.5 RDW 12.5 Plt Count 136 L Sodium 134 L Potassium 4.0 Chloride 99 Carbon Dioxide 30 BUN 17 Creatinine 0.86 Estimated GFR > 60 BUN/Creatinine Ratio 19.8 Glucose 140 H Calcium 8.9 PFSH Medical History Breast cancer (2001) Cervical radiculopathy Chickenpox (Unknown) Chronic back pain (1999) Colitis (1979) Fibromyalgia (12/04/01) GERD (gastroesophageal reflux disease) (1979) History of malignant neoplasm of breast (12/22/15) Irritable bowel syndrome without diarrhea (12/22/15) Kidney stones (1989) Measles (Unknown) Medicare annual wellness visit, subsequent Midline low back pain without sciatica (12/22/15) Mumps (Unknown) Osteoporosis (05/2017) Radiculopathy, thoracic region Sleep apnea (2009) 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 Social History marital status: household members: spouse housing: house Smoking Status: Never smoker alcohol intake: never Discharge Plan Discharge Plan Patient Disposition: Home Health Service Provider Discharge Comment: Ms. Katz was admitted after a fall with a hip fracture. She had this repaired and did well. She should follow up with her PCP and orthopedic surgeon in two weeks. Discharge orders & Medications Prescriptions: New aspirin 81 mg Tablet,Delayed Release (Dr/Ec) 81 mg PO BID Qty: 60 0RF oxycodone 5 mg Tablet 5 mg PO Q4-6H PRN (Reason: Pain, Moderate (4-6)) Qty: 20 0RF docusate sodium 100 mg tablet 100 mg PO BID Qty: 30 0RF polyethylene glycol 3350 [Miralax] 17 gram/dose powder 17 g PO DAILY PRN (Reason: constipation) Qty: 119 0RF Continued polyethylene glycol 3350 [Miralax] 17 GM powder in packet 17 gm PO Q DAY PRN (Reason: Constipation) Qty: 0 omeprazole 40 mg capsule,delayed release(DR/EC) 40 mg PO DAILY Qty: 90 1RF Rx Instructions: w/Meals. lisinopril-hydrochlorothiazide 20-25 mg tablet 1 tab PO DAILY Qty: 90 0RF Rx Instructions: Patient is overdue for follow up with Dr. Blank. Please have patient call in to schedule an appointment. Thank you! dicyclomine 20 mg tablet 20 mg PO DAILY One Daily Women 50 Plus 1 tab PO DAILY Medication counseling provided by Pharmacist: No Follow up/Referrals: Oliver Blank MD [Primary Care Provider] - 2 Weeks Sam Medrano MD [Physician] - 2 Weeks (s/p hip fracture and repair) Diet/Activity/Treatments Diet: Diet as Tolerated and Regular Activity: Up and walking as tolerated with assist as needed. Cold/Heat Therapy: Ice to hip as needed Catheter comment: N/A Oxygen: N/A Skin/Wound/Dressing Care Report to your healthcare provider any signs of infection, such as:: chills, fever, night sweats, unusual drainage and unusual redness Visit Report/Discharge Packet Instructions: DI for Hip Replacement, How to Prevent Falls, DI for Prescription Opioid Use Stand Alone Forms: Patient Portal/API, Stroke Signs & Symptoms, Surgery Discharge Discharge Data Primary Care Provider: Oliver Blank Discharges patient from system. Discharge Date/Time: 02/09/23 12:50 Quality VTE Deep Vein Thrombosis/Pulmonary Embolism Present on Admission: No
== END 2023-02-09 12:50 | disposition home health service (06) | DRG 522 ==
LOC: ED 07:14 → AC 07:34
PROVIDERS: Emergency Medicine; Orthopaedic Surgery Adult Reconstructive Orthopaedic Surgery; Admitting Provider Internal Medicine; Emergency Provider Emergency Medicine; PCP Student in an Organized Health Care Education/Training Program; Referring Provider Emergency Medicine; Visit Provider Internal Medicine
PROC: 0SRR0J9 Replacement of Right Hip Joint, Femoral Surface with Synthetic Substitute, Cemented, Open Approach (ICD-10-PCS; CPT 27130; principal; 2023-02-07 14:00)
DX: S72.001A Fracture of unspecified part of neck of right femur, initial encounter for closed fracture (principal); J98.11 Atelectasis; W03.XXXA Other fall on same level due to collision with another person, initial encounter; I10 Essential (primary) hypertension; Z66 Do not resuscitate; K21.9 Gastro-esophageal reflux disease without esophagitis; G47.33 Obstructive sleep apnea (adult) (pediatric); D64.89 Other specified anemias; R09.02 Hypoxemia; D72.828 Other elevated white blood cell count
CPT/HCPCS: 36415; 70450; 71045; 72192; 73502; 76000; 80048; 80053; 81001; 85025; 85027; 94660; 94762; 96361; 96374; 97116; 97162; 97166; 97530; 99284; C1776; C9290; J0171; J0690; J1170; J2405; J2704; J3010; J3490

== ENCOUNTER → 2023-05-23 11:15 | Outpatient (CLI) | payer MEDICARE, SELFPAY ==
[2023-02-07 09:42] VITALS: BMI 24.9
--- NOTE | 2023-05-23 11:18 | DI.RAD.S_ITS ---
PROCEDURE: XR CHEST 2V INDICATIONS: respiratory illness, r/o pneumonia TECHNIQUE: 2 views of the chest were acquired. COMPARISON: [facility], CR, XR CHEST 1V, 02/08/2023, 8:43. FINDINGS: Surgical changes and devices: Right upper quadrant surgical clips. Prior vertebroplasty. Lungs and pleura: Lungs are clear. No pleural effusions or pneumothorax. Mediastinum: Mediastinal contours are normal. Heart size is normal. Bones and chest wall: No suspicious bony abnormalities. Soft tissues appear unremarkable. IMPRESSION: No acute cardiopulmonary abnormality is seen. Dictated by: Trey Curtis M.D. on 05/23/2023 at 11:38 Approved by: Trey Curtis M.D. on 05/23/2023 at 11:38
== END ==
PROVIDERS: PCP Family Medicine; Referring Provider Family Medicine; Visit Provider Family Medicine
DX: R05.9 Cough, unspecified (principal)
CPT/HCPCS: 71046

== ENCOUNTER → 2023-05-29 10:20 | Outpatient (CLI) | payer MEDICARE, SELFPAY ==
[2023-02-07 09:42] VITALS: BMI 24.9
[2023-05-29 12:03] LABS: Add Manual Diff / Slide Review NO; Basophils Absolute Auto 0 /uL (0-100); Basophils Percent Auto 0.7 % (0-2); Eosinophils Absolute Auto 200 /uL (0-450); Eosinophils Percent Auto 2.9 % (2-4); Hematocrit 34.8 % (36-46); Hemoglobin 11.8 g/dL (12.0-16.0); Lymphocytes Absolute Auto 2300 /uL (1100-4500); Lymphocytes Percent Auto 34.4 % (25-40); Mean Corpuscular HGB Conc 33.9 % (30-36); Mean Corpuscular Hemoglobin 31.4 PG (26-34); Mean Corpuscular Volume 92.6 fL (80-100); Monocytes Absolute Auto 800 /uL (0-900); Monocytes Percent Auto 12.6 % (3-14); Neutrophils Absolute Auto 3300 /uL (1500-7000); Neutrophils Percent Auto 49.4 % (50-75); Platelet Count 310 X10^3/uL (150-400); Red Blood Cell Count 3.76 X10^6/uL (4.0-5.2); Red Cell Distribution Width 13.2 % (11.6-14.8); White Blood Cell Count 6.6 X10^3/uL (4.5-11.0)
[2023-05-29 12:12] LABS: Creatinine Urine Random 225.6 mg/dL
[2023-05-29 12:16] LABS: Microalbumi Creatinin Ratio Ur 5.7 ug/mg CR (<30); Microalbumin Urine Random 1.3 mg/dL (0-1.6)
[2023-05-29 12:30] LABS: Vitamin D 25 Hydroxy (D3) 32.8 ng/mL (30.0-100.0)
== END ==
PROVIDERS: PCP Family Medicine; Referring Provider Family Medicine; Visit Provider Family Medicine
DX: K58.9 Irritable bowel syndrome, unspecified (principal); M81.0 Age-related osteoporosis without current pathological fracture; I10 Essential (primary) hypertension; Z00.00 Encounter for general adult medical examination without abnormal findings
CPT/HCPCS: 36415; 82043; 82306; 82570; 85025

== ENCOUNTER → 2023-11-04 11:08 | Outpatient (CLI) | payer MEDICARE, SELFPAY ==
[2023-02-07 09:42] VITALS: BMI 24.9
--- NOTE | 2023-11-04 11:10 | DI.RAD.S_ITS ---
PROCEDURE: XR CERVICAL SPINE 4V OR 5V INDICATIONS: NECK PAIN TECHNIQUE: Five views of the cervical spine acquired. COMPARISON: [facility], CR, XR CERVICAL SPINE 4V OR 5V, 01/08/2022, 11:23. FINDINGS: Bones: Trace anterolisthesis C5 on six. Mild disc height loss at C6-7. Mild multilevel facet arthropathy. Mild left neural foraminal narrowing at C2-3 and C3-4. Other neural foramina are patent. No vertebral body fractures. Minimal anterior endplate spurring, mainly at C4-5 and C5-6. Soft tissues: No prevertebral soft tissue swelling. IMPRESSION: Mild left-sided foraminal narrowing at C2-3 and C3-4 without progression since the previous exam. No significant progression of disc degeneration. Dictated by: Meaghan Jiménez M.D. on 11/04/2023 at 14:10 Approved by: Meaghan Jiménez M.D. on 11/04/2023 at 14:12
== END ==
PROVIDERS: PCP Family Medicine; Referring Provider Physical Medicine & Rehabilitation; Visit Provider Physical Medicine & Rehabilitation
DX: M47.22 Other spondylosis with radiculopathy, cervical region (principal); M48.02 Spinal stenosis, cervical region
CPT/HCPCS: 72050

== ENCOUNTER 2023-12-03 10:07 | Outpatient (CLI) | payer MEDICARE, SELFPAY ==
[2023-02-07 09:42] VITALS: BMI 24.9
[2023-12-03] VITALS (10 sets, daily range): BP systolic 158–208; BP diastolic 71–88; PULSE 66–76; RESP 9–19; TEMP 36.6; O2SAT 94–100
--- NOTE | 2023-12-03 08:45 | DI.RAD.S_ITS ---
PROCEDURE: PAIN C/T INTERLAMINAR INJECT INDICATIONS: C7-T1 translaminar ARTHUR COMPARISON: [facility], , PAIN C/T INTERLAMINAR INJECT, 12/11/2022, 9:46. FINDINGS: Fluoroscopic spot filming was performed to verify placement of spinal needles at the C7-T1 level(s), as labeled on the films. Appropriate location(s) of the needle tip(s) was confirmed by injection of iodinated contrast. IMPRESSION: Contrast a needle placement overlying labeled right C7-T1 Dictated by: Lamar Baig M.D. on 12/03/2023 at 22:36 Approved by: Lamar Baig M.D. on 12/03/2023 at 22:36
[2023-12-03] MEDS: MIDAZOLAM 2 MG/2 ML VIAL IV (11:41)
[2023-12-03] MEDS: BUPIVACAINE 0.25% (PF) VIAL 2 ML INJ (11:47)
[2023-12-03] MEDS: iopamidoL 15 ML VIAL 3 ML INJ (11:48)
[2023-12-03] MEDS: DEXAMETHASONE 10 MG/ML VIAL 20 MG INJ (11:48)
--- NOTE | 2023-12-03 12:04 | P.PCN_ITS ---
Date/Time/Diagnoses Date of procedure: 12/03/23 Time of procedure: 12:04 Pre-procedure diagnosis: 1. CERVICAL STENOSIS, 2. CERVICAL HNP WITH UPPER EXTREMITY RADICULAR FEATURES Procedure Notes Procedure: FLUORSCOPICALLY GUIDED CONTRAST CONTROLLED INTERLAMINAR EPIDURAL STEROID INJECTION - C7/T1 TL ARTHUR Indications: Olive is referred by Dr. Ignacio for treatment of Cervical Stenosis. Physician: Terry Pillai Total Fluoroscopy time (seconds): 27 Total sedation minutes: 14 Complications: none Procedure in detail & Post-procedure care: DESCRIPTION OF PROCEDURE Following review of allergy and review of potential side effects and co mplications, including, but not necessarily limited to, infection, allergic reaction, local tissue breakdown, temporary as well as permanent nerve injury, stroke, paralysis, and possible , the patient indicated that patient understood and agreed to proceed. An informed consent document was signed by the patient, witnessed by a nurse, and placed in the patient's chart. Additionally, other treatment options including modalities, medications, and physical therapy were reviewed with the patient. After review of previous anaesthesic history and IV conscious sedation the patient was deemed safe to proceed with todays procedure with IV conscious sedation as ASA class II designation. Safety time-out was performed to confirm patient ID, procedure to be performed and site of procedure. IV sedation was accomplished with a combination of 2mg of Versed administered by the RN after DO order, titrated to patient comfort during the course of the procedure while the patient remained responsive to all verbal commands. In the prone position, following sterile prep and drape of the cervical region, the C7/T1 translaminar space was identified fluoroscopically. The skin was anesthetized via a 25-gauge 1.5-inch needle with 1% lidocaine solution. At this point, a 25-gauge, 2.5-inch short bevel spinal needle was atraumatically introduced and advanced under fluoroscopic guidance into epidural space at the C7/T1 translaminar space. Depth was confirmed on lateral view. Radiological data, including multiple fluoroscopic views of the cervical spine, reveal a spinal needle at the C7/T1 translaminar space. Lateral views then show placement of the needle in the epidural space. Subsequent views show contrast material flowing superiorly and inferiorly in the epidural space. DSA fluorosco py with live contrast injection, once again, confirmed no vascular or intrathecal uptake. At this point, using loss of resistance technique with saline and air, the epidural space was entered. Following negative aspiration, injection of approximately 1.5 cc of Isovue-200 with live fluoroscopy in the AP view confirmed epidural flow in the epidural space without vascular or intrathecal uptake observed. Subsequently, a test dose of 1 cc of 1% lidocaine solution was injected and patient was observed for two minutes without signs or symptoms of complications, including abdominal pain, shortness of breath, bilateral upper or lower extremity weakness, nausea and vomiting, prior to steroid injection. At this point, 2cc or 20mg of dexamethasone was then injected without incident. The patient tolerated the procedure well without signs or symptoms of complications prior to transfer to the recovery area for further monitoring The patient was then transferred to the recovery area where they were observed for an appropriate period of time after the injection. The patient reported a VAS score of 8 prior to the procedure and a post-procedure VAS of 2 POST OP INSTRUCTIONS The patient was provided a Pain Log to continue to record the patient's response to the target-specific procedure prior to the patient's follow-up visit with the referring physician. Additionally, specific post-injection care instructions and a contact number to our office were provided if concerns arise regarding possible complications associated with the procedure are suspected.
== END 2023-12-03 12:14 | disposition home or self-care (01) ==
PROVIDERS: PCP Family Medicine; Referring Provider Physical Medicine & Rehabilitation; Visit Provider Physical Medicine & Rehabilitation
DX: M48.02 Spinal stenosis, cervical region (principal); M50.123 Cervical disc disorder at C6-C7 level with radiculopathy
CPT/HCPCS: 62321; 99152; J1100; J2250; J3490

== ENCOUNTER → 2023-12-19 09:16 | Outpatient (CLI) | payer MEDICARE, SELFPAY ==
[2023-02-07 09:42] VITALS: BMI 24.9
--- NOTE | 2023-12-19 09:18 | DI.RAD.S_ITS ---
PROCEDURE: XR SHOULDER RT MIN 2V INDICATIONS: Right shoulder impingement TECHNIQUE: 3 views of the shoulder were acquired. COMPARISON: None. FINDINGS: Bones: No fractures or dislocations. No suspicious bony lesions. Mild arthritic changes noted in the AC joint with joint narrowing. Visualized ribs appear intact. Soft tissues: No suspicious soft tissue calcifications. IMPRESSION: No acute bony abnormality. Mild DJD in the right AC joint. Dictated by: Harsh Massey M.D. on 12/19/2023 at 14:40 Approved by: Harsh Massey M.D. on 12/19/2023 at 14:42
== END ==
PROVIDERS: PCP Family Medicine; Referring Provider Physical Medicine & Rehabilitation; Visit Provider Physical Medicine & Rehabilitation
DX: M19.011 Primary osteoarthritis, right shoulder (principal); M75.41 Impingement syndrome of right shoulder
CPT/HCPCS: 73030

== ENCOUNTER → 2024-01-31 12:38 | Outpatient (CLI) | payer MEDICARE, SELFPAY ==
[2023-02-07 09:42] VITALS: BMI 24.9
[2024-01-31 13:09] LABS: Add Manual Diff / Slide Review NO; Basophils Absolute Auto 100 /uL (0-100); Basophils Percent Auto 0.7 % (0-2); Eosinophils Absolute Auto 300 /uL (0-450); Eosinophils Percent Auto 3.3 % (2-4); Hematocrit 34.4 % (36-46); Hemoglobin 11.7 g/dL (12.0-16.0); Lymphocytes Absolute Auto 2700 /uL (1100-4500); Lymphocytes Percent Auto 31.9 % (25-40); Mean Corpuscular HGB Conc 34.1 % (30-36); Mean Corpuscular Hemoglobin 32.6 PG (26-34); Mean Corpuscular Volume 95.6 fL (80-100); Monocytes Absolute Auto 800 /uL (0-900); Monocytes Percent Auto 8.8 % (3-14); Neutrophils Absolute Auto 4700 /uL (1500-7000); Neutrophils Percent Auto 55.3 % (50-75); Platelet Count 287 X10^3/uL (150-400); Red Cell Distribution Width 12.7 % (11.6-14.8); White Blood Cell Count 8.6 X10^3/uL (4.5-11.0)
[2024-01-31 13:43] LABS: Alanine Aminotransferase 24 IU/L (<35); Albumin 4.4 g/dL (3.5-5.0); Albumin Globulin Ratio 1.7 (1.0-2.8); Alkaline Phosphatase 103 U/L (38-126); Aspartate Aminotransferase 30 IU/L (14-36); Bilirubin Total 0.6 mg/dL (0.2-1.3); Blood Urea Nitrogen 30 mg/dL (7-17); Calcium 9.6 mg/dL (8.4-10.2); Carbon Dioxide 28 mmol/L (22-32); Chloride 100 mmol/L (98-107); Estimated Glomerular Filt Rate 51 mL/min (>60); Globulin 2.6 g/dL (1.7-4.1); Glucose 111 mg/dL (80-110); HEMOLYSIS < 15 (0-50); Potassium 5.1 mmol/L (3.4-5.1); Sodium 135 mmol/L (137-145)
[2024-01-31 15:50] LABS: Creatinine Urine Random 57.72 mg/dL
[2024-01-31 15:55] LABS: Microalbumin Urine Random < 0.6 mg/dL (0-1.6)
[2024-01-31 16:05] LABS: Vitamin D 25 Hydroxy (D3) 34.7 ng/mL (30.0-100.0)
== END ==
PROVIDERS: PCP Family Medicine; Referring Provider Family Medicine; Visit Provider Family Medicine
DX: I10 Essential (primary) hypertension (principal); E78.00 Pure hypercholesterolemia, unspecified; D50.0 Iron deficiency anemia secondary to blood loss (chronic)
CPT/HCPCS: 36415; 80053; 82043; 82306; 82570; 85025

== ENCOUNTER 2024-05-25 11:41 | Inpatient (IN) | payer MEDICARE, SELFPAY ==
[2023-02-07 09:42] VITALS: BMI 24.9
[2024-05-25] VITALS (14 sets, daily range): BP systolic 137–204; BP diastolic 61–119; PULSE 54–87; RESP 18–22; TEMP 36.6–37.3; O2SAT 88–100; BMI 25.4; BMI 24.5
--- NOTE | 2024-05-25 11:47 | DI.RAD.S_ITS ---
PROCEDURE: XR SHOULDER LT MIN 2V INDICATIONS: fall TECHNIQUE: 3 views of the shoulder were acquired. COMPARISON: [facility], CR, XR SHOULDER RT MIN 2V, 12/19/2023, 9:18. FINDINGS: Bones: Irregularity of the proximal humeral neck. No suspicious bony lesions. Visualized ribs appear intact. Soft tissues: No suspicious soft tissue calcifications. IMPRESSION: Irregularity of the proximal humeral neck concerning for mildly displaced fracture. Recommend CT for further evaluation. Dictated by: Trey Curtis M.D. on 05/25/2024 at 13:06 Approved by: Trey Curtis M.D. on 05/25/2024 at 13:08
--- NOTE | 2024-05-25 11:48 | DI.RAD.S_ITS ---
PROCEDURE: XR HIP W PEL IF DONE LT 2V INDICATIONS: fall TECHNIQUE: AP pelvis with lateral view(s) of the bilateral hip(s). COMPARISON: [facility], CR, XR HIP W PEL IF DONE RT 2V, 02/07/2023, 17:50. [facility], CR, XR HIP W PEL IF DONE RT 2V, 02/07/2023, 16:16. FINDINGS: Bones: Mildly displaced and comminuted fracture of the left femoral neck. Right hip arthroplasty is stable in appearance. Pelvic ring appears intact. No suspicious bony lesions. Decreased osseous mineralization. Degenerative changes of the visualized lower lumbar spine and pubic symphysis. Soft tissues: The visualized bowel gas pattern is normal. No suspicious soft tissue calcifications. IMPRESSION: Mildly displaced and comminuted fracture of the left femoral neck. Dictated by: Trey Curtis M.D. on 05/25/2024 at 13:08 Approved by: Trey Curtis M.D. on 05/25/2024 at 13:09
--- NOTE | 2024-05-25 11:48 | DI.CT.S_ITS ---
PROCEDURE: CT CERVICAL SPINE WO CON INDICATIONS: fall, cspine tenderness TECHNIQUE: Noncontrast 3 mm thick sections acquired from the skull base to the T4 level. Sagittal and coronal reformats were then constructed. For radiation dose reduction, the following was used: automated exposure control, adjustment of mA and/or kV according to patient size. COMPARISON: [facility], CT, CT CERVICAL SPINE WO CON, 01/25/2020, 11:50. FINDINGS: Image quality: Excellent. Bones: No fractures or dislocations. Multilevel degenerative changes of the spine. Visualized superior ribs are intact. Soft tissues: Prevertebral soft tissues are normal in thickness. No paravertebral hematomas. No apical pneumothoraces. IMPRESSION: No displaced fracture or traumatic subluxation. Dictated by: Trey Curtis M.D. on 05/25/2024 at 13:11 Approved by: Trey Curtis M.D. on 05/25/2024 at 13:21
--- NOTE | 2024-05-25 11:48 | DI.CT.S_ITS ---
PROCEDURE: CT HEAD/BRAIN WO CON INDICATIONS: fall, cspine tenderness TECHNIQUE: Noncontrast 4.5 mm thick angled axial sections acquired from the foramen magnum to the vertex, with coronal and sagittal reformats. For radiation dose reduction, the following was used: automated exposure control, adjustment of mA and/or kV according to patient size. COMPARISON: [facility], CT, CT HEAD/BRAIN WO CON, 02/07/2023, 6:09. FINDINGS: Image quality: Diagnostic. CSF spaces: Basal cisterns are patent. No extra-axial fluid collections. The ventricles are symmetric in size and shape. Brain: Streak artifact limits evaluation of the cerebellum. No intracranial bleeds or masses. There is cerebral volume loss for age, with resultant ventricular and sulcal prominence. There are periventricular and deep white matter chronic small vessel ischemic changes. There is intracranial internal carotid artery atherosclerosis. Skull and face: Left frontal hematoma without underlying fracture. Calvarium and visualized facial bones appear intact, without suspicious lesions. Sinuses: Visualized sinuses and mastoids are clear. IMPRESSION: No acute intracranial pathology. Dictated by: Trey Curtis M.D. on 05/25/2024 at 13:10 Approved by: Trey Curtis M.D. on 05/25/2024 at 13:11
[2024-05-25] MEDS: HYDROMORPHONE 0.5 MG INJ IV ×3 (12:07→22:12)
[2024-05-25] MEDS: ONDANSETRON 4 MG/2 ML INJ IV (12:08)
--- NOTE | 2024-05-25 13:15 | PC.NURSE ---
Pt reports pain has returned. Dr Urena notified.
[2024-05-25] MEDS: KETOROLAC 30 MG/ML VIAL 15 MG IV (13:40)
--- NOTE | 2024-05-25 13:44 | ED_ITS ---
HPI - Fall General Chief Complaint: Fall Stated Complaint: GLF Time Seen by Provider: 05/25/24 13:44 Source: patient and EMS Mode of arrival: EMS History of Present Illness HPI Narrative: Patient is a 84-year-old female who has ongoing cervical radiculopathy history of irritable bowel hypertension presents today with mechanical fall. Says she was walking her dog when least got tangled in feet and patient fell forward. She hit her head on a concrete syndrome wall falling onto the left side. She really complaining of left shoulder pain did not lose consciousness she does have a small abrasion over her left eye. No nausea or vomiting. Denies any other symptoms before falling Related Data Home Medications Medication Instructions Recorded Confirmed duloxetine 20 mg capsule,delayed 20 mg PO DAILY 03/21/23 03/20/24 release docusate sodium 100 mg tablet 100 mg PO BID 01/17/24 03/20/24 vitamins no.119-iron tab PO 03/20/24 03/20/24 fumarate 29 mg-folic acid 1 mg tablet Previous Rx's Medication Instructions Recorded aspirin 81 mg tablet,delayed 81 mg PO BID #60 tabs 02/08/23 release dicyclomine 20 mg tablet 20 mg PO DAILY #90 tabs 07/24/23 ondansetron HCl 4 mg tablet 4 mg PO Q8-12H PRN nausea and 07/24/23 vomiting #30 tabs celecoxib 200 mg capsule (Celebrex) 200 mg PO DAILY #90 caps 01/06/24 tramadol 50 mg tablet 50 mg PO BID PRN pain #30 tabs 01/06/24 omeprazole 40 mg capsule,delayed 40 mg PO DAILY #90 caps 01/17/24 release lisinopril 10 1 tab PO DAILY #90 tabs 01/31/24 mg-hydrochlorothiazide 12.5 mg tablet cyclobenzaprine 10 mg tablet 10 mg PO BID MUSCLE SPASMS #180 03/09/24 tabs citalopram 10 mg tablet 10 mg PO DAILY #30 tabs 04/28/24 Allergies Allergy/AdvReac Type Severity Reaction Status Date / Time prochlorperazine Allergy Severe lock jaw Verified 03/20/24 11:59 [PROCHLORPERAZINE] type symptoms amoxicillin [From [facility]UGMENT[facility]] AdvReac Intermediate Nausea and Verified 03/20/24 11:59 vomitting. 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 Social History marital status: household members: spouse housing: house Smoking Status: Never smoker alcohol intake: never substance use type: does not use Smoking Status: Never smoker alcohol intake frequency: holidays/special occasions only Exam Initial Vital Signs Initial Vital Signs: Vital Signs Temperature 98.2 F 05/25/24 11:37 Pulse Rate 54 L 05/25/24 11:37 Respiratory Rate 18 05/25/24 11:37 Blood Pressure 138/63 05/25/24 11:37 Pulse Oximetry 99 05/25/24 11:37 Oxygen Delivery Method Room Air 05/25/24 11:37 GENERAL: Alert pleasant talkative 84-year-old female HEENT: Head 0.5 cm laceration over left eye extraocular muscles are intact NECK: Initially in C-collar CARDIOVASCULAR: Regular rate and rhythm without murmurs, rubs or gallops. RESPIRATORY: Breath sounds equal bilaterally, no wheezes rales or rhonchi. ABDOMEN: Soft, nontender. Normoactive bowel sounds all 4 quadrants. No guarding or rebound. EXTREMITIES: Normal range of motion, no clubbing or edema. Neurovascularly intact pelvis stable Left upper extremity clavicle no step-off tender over left humeral head wrist no gross bony deformity distal radial pulse intact elbow is nontender however significant humerus pain but no gross bony deformities sensation and deltoid intact NEUROLOGICAL: Alert and oriented x4. Moving all extremities left arm painful sensation in SKIN: Warm, dry, no laceration, no petechiae, no rashes or lesions. Procedures Laceration Repair Laceration 1: Site: face (left supraorbital) Side (If applicable): left Size (cm): 0.5 Description: linear Depth: simple, single layer Local Anesthetic: lidocaine 1% Amount of anesthesia used (mL): 3 Pre-repair: wound explored, irrigated extensively and deep structures intact Skin layer closed with: nylon Skin layer suture size: 4-0 Number of sutures: 1 Technique: simple, interrupted Course Orders Ordered: ED Orders 05/25/24 11:47 XR shoulder LT min 2V Stat 05/25/24 11:48 CT cervical spine wo con Stat CT head/brain wo con Stat XR hip w pel if done LT 2V Stat 05/25/24 11:58 CBC Auto Diff [Complete Blood Count AUTO DIFF] Stat CMP [Comprehensive Metabolic Panel] Stat 05/25/24 14:00 XR humerus LT 2V Stat 05/25/24 15:06 EKG-12 Lead Stat Acetaminophen (Acetaminophen 325 Mg Tablet) 650 mg PO Q6H PRN PRN Reason: Fever/Mild Pain (1-3) Hydrocodone Bitart/Acetaminophen (Hydrocodone/Acet 5/325 Tablet) 1 tab PO Q4H PRN PRN Reason: Pain, Moderate (4-6) Citalopram Hydrobromide (Citalopram 10 Mg Tablet) 10 mg PO DAILY BARBIE Dicyclomine HCl (Dicyclomine 10 Mg Capsule) 20 mg PO DAILY BARBIE Docusate Sodium (Docusate 100 Mg Capsule) 100 mg PO BID BARBIE Hydrochlorothiazide (Hydrochlorothiazide 25 Mg Tablet) 12.5 mg PO DAILY BARBIE Hydromorphone HCl (Hydromorphone 0.5 Mg Inj) 0.5 mg IV Q2H PRN PRN Reason: Pain, Severe (7-10) Sodium Chloride (Normal Saline 0.45%) 1,000 mls @ 100 mls/hr IV CONT BARBIE Lisinopril (Lisinopril 10 Mg Tablet) 10 mg PO DAILY BARBIE Naloxone HCl (Naloxone 0.4 Mg/Ml Vial) 0.2 mg IV Q2MIN PRN PRN Reason: Opiate Reversal Pantoprazole Sodium (Pantoprazole Dr 40 Mg Tablet) 40 mg PO DAILY BARBIE Discontinued Medications Hydromorphone HCl (Hydromorphone 0.5 Mg Inj) 0.5 mg IV NOW ONE Stop: 05/25/24 12:02 Last Admin: 05/25/24 12:07 Dose: 0.5 mg Documented By: Hydromorphone HCl (Hydromorphone 0.5 Mg Inj) 0.5 mg IV NOW ONE Stop: 05/25/24 13:30 Last Admin: 05/25/24 13:41 Dose: 0.5 mg Documented By: Ketorolac Tromethamine (Ketorolac 30 Mg/Ml Vial) 15 mg IV NOW ONE Stop: 05/25/24 13:30 Last Admin: 05/25/24 13:40 Dose: 15 mg Documented By: Ondansetron HCl (Ondansetron 4 Mg/2 Ml Inj) 4 mg IV NOW ONE Stop: 05/25/24 12:02 Last Admin: 05/25/24 12:08 Dose: 4 mg Documented By: Vital Signs Vital signs: Vital Signs - 8 hr 05/25/24 11:37 05/25/24 12:43 05/25/24 13:00 Temperature 98.2 F Pulse Rate 54 L 69 Respiratory Rate 18 Blood Pressure 138/63 204/81 H Pulse Oximetry 99 100 Oxygen Delivery Method Room Air 05/25/24 13:00 05/25/24 13:30 05/25/24 13:30 Temperature Pulse Rate 81 86 Respiratory Rate Blood Pressure 169/119 H Pulse Oximetry 99 96 Oxygen Delivery Method Room Air 05/25/24 14:00 05/25/24 14:00 05/25/24 14:30 Temperature Pulse Rate 85 Respiratory Rate Blood Pressure 153/68 H 137/63 Pulse Oximetry 88 L Oxygen Delivery Method 05/25/24 14:30 05/25/24 15:00 05/25/24 15:00 Temperature Pulse Rate 84 87 85 Respiratory Rate 19 Blood Pressure 138/83 Pulse Oximetry 98 97 99 Oxygen Delivery Method Room Air Room Air MDM - Fall Lab Data 05/25/24 11:58 05/25/24 11:58 Labs: Lab Results 05/25/24 Range/Units 11:58 WBC 9.9 (4.5-11.0) X10^3/uL RBC 3.82 L (4.0-5.2) X10^6/uL Hgb 12.0 (12.0-16.0) g/dL Hct 36.1 (36-46) % MCV 94.7 (80-100) fL MCH 31.5 (26-34) PG MCHC 33.3 (30-36) % RDW 13.5 (11.6-14.8) % Plt Count 253 (150-400) X10^3/uL Neut % (Auto) 51.1 (50-75) % Lymph % (Auto) 38.3 (25-40) % [place] % (Auto) 6.5 (3-14) % Eos % (Auto) 3.4 (2-4) % Baso % (Auto) 0.7 (0-2) % Neut # (Auto) 5000 (0758-1864) /uL Lymph # (Auto) 3800 (9826-0566) /uL [place] # (Auto) 600 (0-900) /uL Eos # (Auto) 300 (0-450) /uL Baso # (Auto) 100 (0-100) /uL Sodium 135 L (137-145) mmol/L Potassium 4.1 (3.4-5.1) mmol/L Chloride 102 (98-107) mmol/L Carbon Dioxide 24 (22-32) mmol/L BUN 35 H (7-17) mg/dL Creatinine 1.04 (0.52-1.04) mg/dL Estimated GFR 52 L (>60) mL/min BUN/Creatinine Ratio 33.7 H (6-22) Glucose 109 (80-110) mg/dL Calcium 9.2 (8.4-10.2) mg/dL Total Bilirubin 0.6 (0.2-1.3) mg/dL AST 42 H (14-36) IU/L ALT 29 (<35) IU/L Alkaline Phosphatase 66 (38-126) U/L Total Protein 7.1 (6.3-8.2) g/dL Albumin 4.2 (3.5-5.0) g/dL Globulin 2.9 (1.7-4.1) g/dL Albumin/Globulin Ratio 1.4 (1.0-2.8) Imaging Data CT scan - head: Radiologist's Impression: PROCEDURE: CT HEAD/BRAIN WO CON INDICATIONS: fall, cspine tenderness TECHNIQUE: Noncontrast 4.5 mm thick angled axial sections acquired from the foramen magnum to the vertex, with coronal and sagittal reformats. For radiation dose reduction, the following was used: automated exposure control, adjustment of mA and/or kV according to patient size. COMPARISON: [facility], CT, CT HEAD/BRAIN WO CON, 02/07/2023, 6:09. FINDINGS: Image quality: Diagnostic. CSF spaces: Basal cisterns are patent. No extra-axial fluid collections. The ventricles are symmetric in size and shape. Brain: Streak artifact limits evaluation of the cerebellum. No intracranial bleeds or masses. There is cerebral volume loss for age, with resultant ventricular and sulcal prominence. There are periventricular and deep white matter chronic small vessel ischemic changes. There is intracranial internal carotid artery atherosclerosis. Skull and face: Left frontal hematoma without underlying fracture. Calvarium and visualized facial bones appear intact, without suspicious lesions. Sinuses: Visualized sinuses and mastoids are clear. IMPRESSION: No acute intracranial pathology. Dictated by: Trey Curtis M.D. on 05/25/2024 at 13:10 CT - cervical spine: Radiologist's Impression: PROCEDURE: CT CERVICAL SPINE WO CON INDICATIONS: fall, cspine tenderness TECHNIQUE: Noncontrast 3 mm thick sections acquired from the skull base to the T4 level. Sagittal and coronal reformats were then constructed. For radiation dose reduction, the following was used: automated exposure control, adjustment of mA and/or kV according to patient size. COMPARISON: [facility], CT, CT CERVICAL SPINE WO CON, 01/25/2020, 11:50. FINDINGS: Image quality: Excellent. Bones: No fractures or dislocations. Multilevel degenerative changes of the spine. Visualized superior ribs are intact. Soft tissues: Prevertebral soft tissues are normal in thickness. No paravertebral hematomas. No apical pneumothoraces. IMPRESSION: No displaced fracture or traumatic subluxation. Dictated by: Trey Curtis M.D. on 05/25/2024 at 13:11 Extremity x-ray #1: Radiologist's Impression: PROCEDURE: XR HIP W PEL IF DONE LT 2V INDICATIONS: fall TECHNIQUE: AP pelvis with lateral view(s) of the bilateral hip(s). COMPARISON: [facility], CR, XR HIP W PEL IF DONE RT 2V, 02/07/2023, 17:50. [facility], , XR HIP W PEL IF DONE RT 2V, 02/07/2023, 16:16. FINDINGS: Bones: Mildly displaced and comminuted fracture of the left femoral neck. Right hip arthroplasty is stable in appearance. Pelvic ring appears intact. No suspicious bony lesions. Decreased osseous mineralization. Degenerative changes of the visualized lower lumbar spine and pubic symphysis. Soft tissues: The visualized bowel gas pattern is normal. No suspicious soft tissue calcifications. IMPRESSION: Mildly displaced and comminuted fracture of the left femoral neck. Dictated by: Trey Curtis M.D. on 05/25/2024 at 13:08 Extremity x-ray #2: Radiologist's Impression: PROCEDURE: XR SHOULDER LT MIN 2V INDICATIONS: fall TECHNIQUE: 3 views of the shoulder were acquired. COMPARISON: [facility], , XR SHOULDER RT MIN 2V, 12/19/2023, 9:18. FINDINGS: Bones: Irregularity of the proximal humeral neck. No suspicious bony lesions. Visualized ribs appear intact. Soft tissues: No suspicious soft tissue calcifications. IMPRESSION: Irregularity of the proximal humeral neck concerning for mildly displaced fracture. Recommend CT for further evaluation. Dictated by: Trey Curtis M.D. on 05/25/2024 at 13:06 Approved by: Trey Curtis M.D. on 05/25/2024 at 13:08 ECG Data Attestation: I personally reviewed and interpreted this ECG as follows: Prior ECG tracings: available for review Interpretation: Normal sinus rhythm rate 87 WA interval 162 QRS 76 QTC 30 no changes MDM Narrative Medical decision making narrative: MDM CC: Fall left shoulder and left hip pain Complicating co-morbidities: Cervical radiculopathy hypertension Exam documented above, pertinent findings include: Left forehead contusion 0.5 cm laceration in superior orbital area, tender left humerus neurovascularly intact left hip pain with movement but legs are of equal length with still pedal pulse Lab Test results independently reviewed as above. Pertinent findings: WBC 9.9 hemoglobin 12.0 hematocrit 36 point on platelets 253 Sodium 135 potassium 4.1 chloride 102 carbon dioxide 24 BUN 35 creatinine 1.0 Independently reviewed EKG as above No ischemia Imaging studies independently reviewed: Left upper extremity: Humeral head fracture Left hip: Mild displaced and comminuted fracture of left femoral neck Head CT no intracranial process Cervical spine CT: No displaced fracture or traumatic injury Consultations: Dr. Medrano updated on patient's symptoms test results Dr. Poon accepts patient Treatments: Dilaudid Toradol Re-evaluations: Patient continues to remain alert and oriented pain is much better controlled Discussion: 84-year-old female suffered a mechanical fall while walking her dog. She has both a left humeral head fracture and femoral neck fracture. Blood work is overall reassuring. Small laceration to forehead. Discharge Plan Departure Patient Disposition: Admitted As Inpatient Clinical Impression: Forehead laceration Closed hip fracture Qualifiers: Encounter type: initial encounter Laterality: left Qualified Code(s): S72.002A - Fracture of unspecified part of neck of left femur, initial encounter for closed fracture Fracture of head of humerus Qualifiers: Encounter type: initial encounter Fracture type: closed Laterality: right Q ualified Code(s): S42.291A - Other displaced fracture of upper end of right humerus, initial encounter for closed fracture Admit Date/Time: 05/25/24 15:18 Admit Provider: Omega Poon
--- NOTE | 2024-05-25 14:00 | DI.RAD.S_ITS ---
PROCEDURE: XR HUMERUS LT 2V INDICATIONS: humeral head fx TECHNIQUE: 3 views of the humerus were acquired. COMPARISON: [facility], CR, XR SHOULDER LT MIN 2V, 05/25/2024, 12:15. FINDINGS: Bones: Mildly displaced humeral head/neck fracture is redemonstrated. No suspicious bony lesions. Soft tissues: No suspicious soft tissue calcifications. IMPRESSION: Mild displaced humeral head/neck fracture is redemonstrated. Dictated by: Trey Curtis M.D. on 05/25/2024 at 15:08 Approved by: Trey Curtis M.D. on 05/25/2024 at 15:09
[2024-05-25 14:34] LABS: Add Manual Diff / Slide Review NO; Basophils Absolute Auto 100 /uL (0-100); Basophils Percent Auto 0.7 % (0-2); Eosinophils Absolute Auto 300 /uL (0-450); Eosinophils Percent Auto 3.4 % (2-4); Hematocrit 36.1 % (36-46); Lymphocytes Absolute Auto 3800 /uL (1100-4500); Lymphocytes Percent Auto 38.3 % (25-40); Mean Corpuscular HGB Conc 33.3 % (30-36); Mean Corpuscular Hemoglobin 31.5 PG (26-34); Mean Corpuscular Volume 94.7 fL (80-100); Monocytes Absolute Auto 600 /uL (0-900); Monocytes Percent Auto 6.5 % (3-14); Neutrophils Absolute Auto 5000 /uL (1500-7000); Neutrophils Percent Auto 51.1 % (50-75); Platelet Count 253 X10^3/uL (150-400); Red Blood Cell Count 3.82 X10^6/uL (4.0-5.2); Red Cell Distribution Width 13.5 % (11.6-14.8); White Blood Cell Count 9.9 X10^3/uL (4.5-11.0)
[2024-05-25 14:41] LABS: Alanine Aminotransferase 29 IU/L (<35); Albumin 4.2 g/dL (3.5-5.0); Albumin Globulin Ratio 1.4 (1.0-2.8); Alkaline Phosphatase 66 U/L (38-126); Aspartate Aminotransferase 42 IU/L (14-36); BUN Creatinine Ratio 33.7 (6-22); Bilirubin Total 0.6 mg/dL (0.2-1.3); Blood Urea Nitrogen 35 mg/dL (7-17); Calcium 9.2 mg/dL (8.4-10.2); Carbon Dioxide 24 mmol/L (22-32); Chloride 102 mmol/L (98-107); Estimated Glomerular Filt Rate 52 mL/min (>60); Globulin 2.9 g/dL (1.7-4.1); Glucose 109 mg/dL (80-110); HEMOLYSIS 49 (0-50); Potassium 4.1 mmol/L (3.4-5.1); Sodium 135 mmol/L (137-145); Total Protein 7.1 g/dL (6.3-8.2)
--- NOTE | 2024-05-25 15:36 | EKG_ITS ---
[address] [address] Test Date: 2024-05-25 Pat Name: Olive Katz Department: [facility] Room: 90B Gender: Female Rn Acute Care: BRITT : 1940 Requested By: Order Number: [id number] Reading MD: Patrick Ojeda Measurements Intervals Couch Rate: 87 P: 59 ND: 162 QRS: -14 QRSD: 76 T: 66 QT: 358 QTc: 430 Interpretive Statements Normal sinus rhythm Electronically Signed On 05-28-2024 9:43:03 PST by Patrick Ojeda
--- NOTE | 2024-05-25 16:41 | PM.HP.1 ---
History of Present Illness History of Present Illness Date Patient Seen: 05/25/24 Time Patient Seen: 16:43 Chief complaint: GLF Narrative: 84-year-old female with a past medical history chronic cervical neck pain hypertension hyperlipidemia gastroesophageal reflux sleep apnea osteoarthritis osteoporosis with history of compression fracture of spine. Patient presented to the emergency department this afternoon by EMS after a fall. She was walking her dog when she got tangled in the dog leash and fell. Patient hit her head on the concrete while falling onto her left side. She is complaining of left shoulder pain head pain and hip pain. Patient does not recall of losing consciousness she does have an abrasion. Patient does not have a history of syncopal episodes or seizures. Patient was admitted to the hospital proximally a year ago after she fell and landed on her right hip and hit her head patient had a displaced right femoral neck fracture that time. She was admitted for hip repair. Patient has had routine follow-up since that time. She has been recovering from her right hip repair. She has been seeing Dr. Ignacio for routine checkups and Dr. Davisons for cervical spine injections. On review of her emergency department visit. Patient has mild elevation of her blood pressure. Her pulse is 87. Patient had laboratory tests including white blood cell count which was normal she has not anemic with a hemoglobin of 12 and 36. Patient's sodium is mildly low at 135 patient has normal kidney function. Her glucose is 109 her liver functions normal. Patient's x-ray were reviewed patient has a minimally displaced right humerus fracture. Patient has a left femoral neck fracture. Patient has a negative CT scan for intracranial pathology. Patient has a normal cervical spine CT scan which showed no fracture. EKG shows normal sinus rhythm. Patient's daughter at bedside patient has good local family support. 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 Social History marital status: household members: spouse housing: house Smoking Status: Never smoker alcohol intake: never substance use type: does not use Meds Home Medications and Allergies Home Medications Medication Instructions Recorded Confirmed Type aspirin 81 mg tablet,delayed 81 mg PO BID #60 tabs 02/08/23 03/20/24 Rx release duloxetine 20 mg capsule,delayed 20 mg PO DAILY 03/21/23 03/20/24 History release dicyclomine 20 mg tablet 20 mg PO DAILY #90 tabs 07/24/23 03/20/24 Rx ondansetron HCl 4 mg tablet 4 mg PO Q8-12H PRN nausea and 07/24/23 03/20/24 Rx vomiting #30 tabs celecoxib 200 mg capsule (Celebrex) 200 mg PO DAILY #90 caps 01/06/24 03/20/24 Rx tramadol 50 mg tablet 50 mg PO BID PRN pain #30 tabs 01/06/24 03/20/24 Rx docusate sodium 100 mg tablet 100 mg PO BID 01/17/24 03/20/24 History omeprazole 40 mg capsule,delayed 40 mg PO DAILY #90 caps 01/17/24 03/20/24 Rx release lisinopril 10 1 tab PO DAILY #90 tabs 01/31/24 03/20/24 Rx mg-hydrochlorothiazide 12.5 mg tablet cyclobenzaprine 10 mg tablet 10 mg PO BID MUSCLE SPASMS #180 03/09/24 03/20/24 Rx tabs vitamins no.119-iron tab PO 03/20/24 03/20/24 History fumarate 29 mg-folic acid 1 mg tablet citalopram 10 mg tablet 10 mg PO DAILY #30 tabs 04/28/24 Rx Allergies Allergy/AdvReac Type Severity Reaction Status Date / Time prochlorperazine Allergy Severe lock jaw Verified 03/20/24 11:59 [PROCHLORPERAZINE] type symptoms amoxicillin [From AUGMENTIN] AdvReac Intermediate Nausea and Verified 03/20/24 11:59 vomitting. clavulanic acid AdvReac Intermediate n&v Verified 03/20/24 11:59 [From AUGMENTIN] Exam Vital Signs (past 8 hours): - 05/25/24 11:37 05/25/24 12:43 05/25/24 13:00 Temperature 98.2 F Pulse Rate 54 L 69 Respiratory Rate 18 Blood Pressure 138/63 204/81 H Pulse Oximetry 99 100 Oxygen Delivery Method Room Air 05/25/24 13:00 05/25/24 13:30 05/25/24 13:30 Temperature Pulse Rate 81 86 Respiratory Rate Blood Pressure 169/119 H Pulse Oximetry 99 96 Oxygen Delivery Method Room Air 05/25/24 14:00 05/25/24 14:00 05/25/24 14:30 Temperature Pulse Rate 85 Respiratory Rate Blood Pressure 153/68 H 137/63 Pulse Oximetry 88 L Oxygen Delivery Method 05/25/24 14:30 05/25/24 15:00 05/25/24 15:00 Temperature Pulse Rate 84 87 85 Respiratory Rate 19 Blood Pressure 138/83 Pulse Oximetry 98 97 99 Oxygen Delivery Method Room Air Room Air 05/25/24 15:30 05/25/24 15:30 05/25/24 16:00 Temperature Pulse Rate 87 Respiratory Rate Blood Pressure 150/66 H 151/66 H Pulse Oximetry 97 Oxygen Delivery Method 05/25/24 16:00 Temperature Pulse Rate 87 Respiratory Rate Blood Pressure Pulse Oximetry 93 Oxygen Delivery Method Oxygen Delivery Method Room Air Narrative Exam Narrative: Gen.: [Alert and oriented x3 no apparent distress.] HEENT: [NCAT PERRLA tympanic membranes are clear nares are patent oral mucosa is moist no tonsillar hypertrophy neck is supple without lymphadenopathy no thyroid enlargement.] Cardio: [S1-S2 regular rate and rhythm no murmurs appreciated.] Respiratory: [Lungs are clear to auscultation no wheezes or crackles normal respiratory effort.] Abdomen: [Soft nontender no rebound or guarding no liver spleen enlargement no appreciable hernias] Extremities: [Full range of motion no appreciable weakness no cyanosis or edema.] Neurologic: [Grossly intact.] Objective Labs 05/25/24 11:58 05/25/24 11:58 Labs: Laboratory Results - last 24 hr 05/25/24 11:58 WBC 9.9 RBC 3.82 L Hgb 12.0 Hct 36.1 MCV 94.7 MCH 31.5 MCHC 33.3 RDW 13.5 Plt Count 253 Neut % (Auto) 51.1 Lymph % (Auto) 38.3 [place] % (Auto) 6.5 Eos % (Auto) 3.4 Baso % (Auto) 0.7 Neut # (Auto) 5000 Lymph # (Auto) 3800 [place] # (Auto) 600 Eos # (Auto) 300 Baso # (Auto) 100 Sodium 135 L Potassium 4.1 Chloride 102 Carbon Dioxide 24 BUN 35 H Creatinine 1.04 Estimated GFR 52 L BUN/Creatinine Ratio 33.7 H Glucose 109 Calcium 9.2 Total Bilirubin 0.6 AST 42 H ALT 29 Alkaline Phosphatase 66 Total Protein 7.1 Albumin 4.2 Globulin 2.9 Albumin/Globulin Ratio 1.4 Assessment & Plan Assessment and plan (1) Fracture of head of humerus: Qualifiers: Encounter type: initial encounter Fracture type: closed Laterality: right Qualified Code(s): S42.291A - Other displaced fracture of upper end of right humerus, initial encounter for closed fracture Status: Acute (2) Closed hip fracture: Qualifiers: Encounter type: initial encounter Laterality: left Qualified Code(s): S72.002A - Fracture of unspecified part of neck of left femur, initial encounter for closed fracture Status: Acute Plan 84-year-old with ground level fall without loss of consciousness with normal CT scan of head and neck with right proximal nondisplaced humerus fracture and left femoral neck hip fracture. Left hip fracture osteoporosis pathologic Left humerus fracture osteoporotic Scott pathologic Hypertension Depression Irritable bowel syndrome Gastroesophageal reflux Cervical spine arthritis 84-year-old female with ground level fall with hip and shoulder fracture. Patient's laboratory testing reviewed. Patient has no anemia normal electrolytes kidney function and blood sugars are well controlled. Review of CT scan of her head and neck show no acute intracranial bleeds or cervical spine injury. Patient will need orthopedic surgery consultation for intertrochanteric left hip fracture. Patient will have evaluation for her shoulder as well. Patient has an EKG which shows normal sinus rhythm. Patient will be kept NPO we will provide IV fluid for gentle hydration. Patient will have pain management. Patient will have an orthopedic surgery consultation. Patient's during her hospital stay will have her lisinopril hydrochlorothiazide restarted for her blood pressure. She will have pain control. She will be started back on her antidepressant medication and her medication for gastroesophageal reflux. She is previously tolerated surgery without significant difficulties with anesthesia. Based on her laboratory findings and recent laboratory tests and EKG she is medically optimized for surgery. Will follow along during her hospital stay. Code status full code Outpatient treatment for osteoporosis DVT prophylaxis SCDs Omeprazole Time-Based Coding :: [TOTAL MINUTES] spent with patient and on the chart (including review of chart, obtaining history, exam, reviewing outside data, placing orders, documenting exam and treatment plan, and counseling patient) on [DATE]. PROFEE Charge Codes Initial inpatient/observation care: [id number]
[2024-05-25] MEDS: SODIUM CHLORIDE 0.45% 1,000 ML 100 ML IV (17:51)
[2024-05-25] MEDS: DOCUSATE 100 MG CAPSULE PO (20:12)
[2024-05-26] VITALS (21 sets, daily range): BP systolic 79–150; BP diastolic 34–88; PULSE 64–86; RESP 14–19; TEMP 35.7–37; O2SAT 92–100; BMI 24.5
--- NOTE | 2024-05-26 | DI.RAD.S_ITS ---
PROCEDURE: XR HIP W PEL IF DONE LT 2V INDICATIONS: POST-OP LEFT HIP HEMIARTHROPLASTY TECHNIQUE: 2 views of the hip were acquired. [id number], [facility], 16:01. [facility] 2V, 05/25/2024, 12:15. FINDINGS: Bones: Similar positioning of the right hip arthroplasty. Interval left hip arthroplasty in expected position. Soft tissues: Postsurgical changes. IMPRESSION: Expected postsurgical appearance of the left hip arthroplasty Dictated by: Emil Layton M.D. on 05/26/2024 at 17:17 Approved by: Emil Layton M.D. on 05/26/2024 at 17:17
--- NOTE | 2024-05-26 | DI.RAD.S_ITS ---
PROCEDURE: [id number] W PEL IF PERFORMED INDICATIONS: LEFT HIP TECHNIQUE: AP pelvis with lateral view(s) of the left hip(s). COMPARISON: [facility], SAM, XR HIP W PEL IF DONE LT 2V, 05/25/2024, 12:15. [facility], SAM, XR HIP W PEL IF DONE RT 2V, 02/07/2023, 17:50. FINDINGS/IMPRESSION: Intraoperative films submitted for review during a left total hip arthroplasty. Please see operative note. Dictated by: Jaime Lee M.D. on 05/26/2024 at 17:24 Approved by: Jaime Lee M.D. on 05/26/2024 at 17:25
[2024-05-26] MEDS: SODIUM CHLORIDE 0.45% 1,000 ML 100 ML IV (04:00)
[2024-05-26] MEDS: HYDROMORPHONE 0.5 MG INJ IV ×2 (04:01→10:16)
--- NOTE | 2024-05-26 08:16 | P.PN_ITS ---
Subjective Subjective Date Patient Seen: 05/26/24 Time Patient Seen: 08:16 Interval history: Patient seen and evaluated this morning. Resting comfortably in bed. Complaining of the left shoulder elbow pain and hip pain. Patient had a Lim catheter placed last night. Patient comfortable with current pain management. Vital signs stable overnight. Blood pressure is a little bit elevated. Anticipating surgery today. Patient complaining of dry mouth. Bruising on face has improved. She says she has not having a lot of headache or head pain. No palpitations. Normal respiratory rate. No abdominal pain. Exam Vital Signs (past 8 hours): - 05/26/24 06:00 Temperature 98.6 F Pulse Rate 86 Respiratory Rate 18 Blood Pressure 150/88 H Pulse Oximetry 96 Oxygen Flow Rate 0 Oxygen Delivery Method Room Air Oxygen Flow Rate 0 Narrative Exam Narrative: Gen.: Patient is alert she has some left forehead bruising laceration HEENT: Bruising and laceration to left forehead. PERRLA oral mucosa is moist. Cardio: Regular rate and rhythm no murmur Respiratory: Normal respiratory effort no wheezes no crackles Abdomen: Soft nontender Extremities: Warm dry and perfused Objective Labs 05/25/24 11:58 05/25/24 11:58 Labs: Laboratory Results - last 24 hr 05/25/24 11:58 WBC 9.9 RBC 3.82 L Hgb 12.0 Hct 36.1 MCV 94.7 MCH 31.5 MCHC 33.3 RDW 13.5 Plt Count 253 Neut % (Auto) 51.1 Lymph % (Auto) 38.3 [place] % (Auto) 6.5 Eos % (Auto) 3.4 Baso % (Auto) 0.7 Neut # (Auto) 5000 Lymph # (Auto) 3800 [place] # (Auto) 600 Eos # (Auto) 300 Baso # (Auto) 100 Sodium 135 L Potassium 4.1 Chloride 102 Carbon Dioxide 24 BUN 35 H Creatinine 1.04 Estimated GFR 52 L BUN/Creatinine Ratio 33.7 H Glucose 109 Calcium 9.2 Total Bilirubin 0.6 AST 42 H ALT 29 Alkaline Phosphatase 66 Total Protein 7.1 Albumin 4.2 Globulin 2.9 Albumin/Globulin Ratio 1.4 PFS Medical History Closed fracture of right hip Impingement syndrome of right shoulder Cervical radiculopathy Radiculopathy, thoracic region Fibromyalgia (12/04/01) Osteoporosis (05/2017) 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 Social History marital status: household members: none housing: house Smoking Status: Never smoker alcohol intake: never substance use type: does not use Assessment & Plan Assessment and plan (1) Forehead laceration: Qualifiers: Encounter type: subsequent encounter Qualified Code(s): S01.81XD - Laceration without foreign body of other part of head, subsequent encounter Status: Acute (2) Fracture of head of humerus: Qualifiers: Encounter type: initial encounter Fracture type: closed Laterality: l eft Qualified Code(s): S42.292A - Other displaced fracture of upper end of left humerus, initial encounter for closed fracture Status: Acute (3) Closed hip fracture: Qualifiers: Encounter type: initial encounter Laterality: left Qualified Code(s): S72.002A - Fracture of unspecified part of neck of left femur, initial encounter for closed fracture Status: Acute Plan Acute Left hip fracture after fall. Osteoporosis contributing factor pathologic. Pain managment it and definitive Management per orthopedic surgery Acute left shoulder fracture after fall osteoporosis contributing factor pathologic. Pain Management per orthopedic surgery. Osteoarthritis patient with arthritis of significant joints including cervical spine. Continue with pain management ambulate as soon as possible. Hypertension. Patient will be continued on lisinopril hydrochlorothiazide blood pressure is a little bit high will hold off on increasing antihypertensives at this time until she is through the surgical process. Irritable bowel syndrome with gastroesophageal reflux. Patient will be continued on her proton pump inhibitor and her dicyclomine. Depression. Patient will be continued on her antidepressant during her hospital stay. DVT prophylaxis with SCDs code status full code surgery hopefully today medically stable for orthopedic procedure. Time-Based Coding :: [TOTAL MINUTES] spent with patient and on the chart (including review of chart, obtaining history, exam, reviewing outside data, placing orders, documenting exam and treatment plan, and counseling patient) on [DATE]. Quality VTE Deep Vein Thrombosis/Pulmonary Embolism Present on Admission: No PROFEE Charge codes Subsequent inpatient/observation care: [id number]
[2024-05-26 09:15] LABS: Add Manual Diff / Slide Review NO; Basophils Absolute Auto 100 /uL (0-100); Basophils Percent Auto 0.7 % (0-2); Eosinophils Absolute Auto 400 /uL (0-450); Eosinophils Percent Auto 5.1 % (2-4); Hematocrit 31.8 % (36-46); Hemoglobin 10.9 g/dL (12.0-16.0); Lymphocytes Absolute Auto 1900 /uL (1100-4500); Lymphocytes Percent Auto 24.4 % (25-40); Mean Corpuscular HGB Conc 34.2 % (30-36); Mean Corpuscular Hemoglobin 32.3 PG (26-34); Mean Corpuscular Volume 94.5 fL (80-100); Monocytes Absolute Auto 700 /uL (0-900); Monocytes Percent Auto 9.3 % (3-14); Neutrophils Absolute Auto 4700 /uL (1500-7000); Neutrophils Percent Auto 60.5 % (50-75); Platelet Count 174 X10^3/uL (150-400); Red Blood Cell Count 3.37 X10^6/uL (4.0-5.2); Red Cell Distribution Width 13.5 % (11.6-14.8); White Blood Cell Count 7.8 X10^3/uL (4.5-11.0)
[2024-05-26 09:55] LABS: BUN Creatinine Ratio 29.7 (6-22); Blood Urea Nitrogen 27 mg/dL (7-17); Calcium 8.6 mg/dL (8.4-10.2); Carbon Dioxide 24 mmol/L (22-32); Chloride 102 mmol/L (98-107); Estimated Glomerular Filt Rate > 60 mL/min (>60); Glucose 94 mg/dL (80-110); HEMOLYSIS 32 (0-50); Potassium 4.6 mmol/L (3.4-5.1); Sodium 131 mmol/L (137-145)
[2024-05-26] MEDS: lisinopriL 10 MG TABLET PO (10:14)
[2024-05-26] MEDS: SODIUM CHLORIDE 0.9% 1,000 ML 100 ML IV ×2 (10:14→16:29)
[2024-05-26] MEDS: CITALOPRAM 10 MG TABLET PO (10:15)
[2024-05-26] MEDS: PANTOPRAZOLE DR 40 MG TABLET PO (10:15)
[2024-05-26] MEDS: DOCUSATE 100 MG CAPSULE PO ×2 (10:16→20:56)
[2024-05-26] MEDS: hydroCHLOROthiazide 25 MG TABLET 12.5 MG PO (10:16)
--- NOTE | 2024-05-26 12:59 | PC.NURSE ---
1259 pt transported off of unit via bed by BENEFITS TECHNICIANDOMINIQUE Mccallum
--- NOTE | 2024-05-26 13:50 | PM.HP.1 ---
History of Present Illness History of Present Illness Chief complaint: GLF Narrative: CHIEF COMPLAINT: Fall with head injury and shoulder pain. PATIENT SUMMARY: The patient presented with a fall resulting in head injury and shoulder pain. HISTORY OF PRESENT ILLNESS: The patient reported falling while taking the dog for a walk. During the fall, the patient hit their head on a rock or wall, leading to persistent head pain. The patient mentioned an interaction with a neighbor, Pat, who assisted by covering the patient with a blanket and calling an ambulance. The patient expressed surprise about the shoulder injury discovered after the fall, noting sharp, intense pain. The patient is preparing for a left hip hemiarthroplasty and will not be going home immediately, but instead will be transferred to a senior care facility for further care. PAST SURGICAL HISTORY: Right hip hemiarthroplasty last year performed by myself SOCIAL HISTORY: - Lives alone. - at age 83. VITALS AND PHYSICAL EXAM: General: Abrasion present over left orbital area LUE: Arm maintained in a sling. SILT in median ulnar radial nerves. Motor function grossly intact distally in hand. LLE: ROM exam deferred given known injury. SILT L2-S1 nerve distributions ASSESSMENT: 1. Displaced left femoral neck fracture: The patient's fall likely caused this fracture, necessitating surgical intervention. 2. Non-displaced left proximal humerus fracture: Identified via radiographs, this fracture will complicate mobility and use of a walker, though it does not require surgical intervention. PLAN: Treatment: - Planned left hip hemiarthroplasty with cement through an anterior approach. - Postoperative care in a senior care facility. Patient Education: - Discussed the importance of mobility and care post-surgery. - Informed about the impact of shoulder injury on using a walker. Disposition: - Discharge to senior care facility for rehabilitation and care following surgery. 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 Social History marital status: household members: none housing: house Smoking Status: Never smoker alcohol intake: never substance use type: does not use Meds Home Medications and Allergies Home Medications Medication Instructions Recorded Confirmed Type ondansetron HCl 4 mg tablet 4 mg PO Q8-12H PRN nausea and 07/24/23 05/25/24 Rx vomiting #30 tabs tramadol 50 mg tablet 50 mg PO BID PRN pain #30 tabs 01/06/24 05/25/24 Rx docusate sodium 100 mg tablet 100 mg PO BID PRN Constipation 01/17/24 05/25/24 History omeprazole 40 mg capsule,delayed 40 mg PO DAILY #90 caps 01/17/24 05/25/24 Rx release lisinopril 10 1 tab PO DAILY #90 tabs 01/31/24 05/25/24 Rx mg-hydrochlorothiazide 12.5 mg tablet aspirin 81 mg tablet,delayed 81 mg PO DAILY 05/25/24 05/25/24 History release celecoxib 200 mg capsule (Celebrex) 200 mg PO DAILY PRN Pain (Scale 05/25/24 05/25/24 History Score 4-6) citalopram 10 mg tablet 10 mg PO DAILY 05/25/24 05/25/24 History cyclobenzaprine 10 mg tablet 10 mg PO BID PRN MUSCLE SPASMS 05/25/24 05/25/24 History dicyclomine 20 mg tablet 20 mg PO BID PRN IBS 05/25/24 05/25/24 History Allergies Allergy/AdvReac Type Severity Reaction Status Date / Time prochlorperazine Allergy Severe lock jaw Verified 03/20/24 11:59 [PROCHLORPERAZINE] type symptoms amoxicillin [From AUGMENTIN] AdvReac Intermediate Nausea and Verified 03/20/24 11:59 vomitting. clavulanic acid AdvReac Intermediate n&v Verified 03/20/24 11:59 [From AUGMENTIN] Exam Vital Signs (past 8 hours): - 05/26/24 06:00 05/26/24 09:11 05/26/24 10:14 Temperature 98.6 F Pulse Rate 86 80 Respiratory Rate 18 17 Blood Pressure 150/88 H 150/88 H Pulse Oximetry 96 97 Oxygen Delivery Method Oxygen Flow Rate 0 0 05/26/24 13:20 Temperature 98.1 F Pulse Rate 82 Respiratory Rate 16 Blood Pressure 137/64 Pulse Oximetry 92 Oxygen Delivery Method Room Air Oxygen Flow Rate Oxygen Delivery Method Room Air Oxygen Flow Rate 0 Objective Labs 05/26/24 08:56 05/26/24 08:56 Labs: Laboratory Results - last 24 hr 05/25/24 05/26/24 11:58 08:56 WBC 9.9 7.8 RBC 3.82 L 3.37 L Hgb 12.0 10.9 L Hct 36.1 31.8 L MCV 94.7 94.5 MCH 31.5 32.3 MCHC 33.3 34.2 RDW 13.5 13.5 Plt Count 253 174 Neut % (Auto) 51.1 60.5 Lymph % (Auto) 38.3 24.4 L [place] % (Auto) 6.5 9.3 Eos % (Auto) 3.4 5.1 H Baso % (Auto) 0.7 0.7 Neut # (Auto) 5000 4700 Lymph # (Auto) 3800 1900 [place] # (Auto) 600 700 Eos # (Auto) 300 400 Baso # (Auto) 100 100 Sodium 135 L 131 L Potassium 4.1 4.6 Chloride 102 102 Carbon Dioxide 24 24 BUN 35 H 27 H Creatinine 1.04 0.91 Estimated GFR 52 L > 60 BUN/Creatinine Ratio 33.7 H 29.7 H Glucose 109 94 Calcium 9.2 8.6 Total Bilirubin 0.6 AST 42 H ALT 29 Alkaline Phosphatase 66 Total Protein 7.1 Albumin 4.2 Globulin 2.9 Albumin/Globulin Ratio 1.4 Assessment & Plan Time-Based Coding :: [TOTAL MINUTES] spent with patient and on the chart (including review of chart, obtaining history, exam, reviewing outside data, placing orders, documenting exam and treatment plan, and counseling patient) on [DATE]. Quality VTE Deep Vein Thrombosis/Pulmonary Embolism Present on Admission: No
--- NOTE | 2024-05-26 14:17 | CM.DANOTE ---
Initial DCP Assessment Visit Note Reviewed EMR and team rounds for status updates. This VAULT CLERK was unable to meet with pt f/f today as she had already been taken down to surgery at the time of this visit. Pt lives mostly independently in her own home w/spouse in [place], her spouse is at home on hospice care. Pt has a supportive and involved dtr, Yaz, who assists with care needs and coordination/transportation. Dtr or SNF, depending on discharge disposition-home vs. SNF-will transport. Pt will likely need SNF due to pt's care needs at home. Payor: [employer] PCP: Dr. Ignacio Pt is a 84 year-old F who presented to the ED via EMS yesterday afternoon after falling forward on the concrete while walking her dog. Hip x-ray showed L-hip fracture, shoulder x-ray was positive for fracture as well. Ortho was consulted and the plan was made to make pt NPO for scheduled fixation surgery (today). DCP will continue to monitor for final PT/OT evals and recommendations, and will do a SNF referral once we can discuss with pt and determine her preference, if needed. Discharge Planning/Care Management CM Discharge Assessment Start: 05/26/24 14:14 Freq: Status: Active Protocol: Document 05/26/24 14:14 DPL (Rec: 05/26/24 14:17 DPL [id number]) Discharge Planning Assessment Assigned Clinical Resource Nurse GINGER Paz Advance Directives? No Advance Directives on File Yes History Provided By Significant Other Expected Length of Stay 3 Has Patient been admitted in last 30 No days? Prior Living Arrangements House Household Members spouse Type of transporation used prior to Relies on Others admit Independent with ADL's Yes Is patient alert and oriented? Yes Needs Assistance With Home Chores / Shopping Caregiver for Another No Comment Information not available at time of this assessment. Patient/Family Preference Half-Way Facility Comment Patient's spouse is home on hospice, has caregivers and family support, anticipate that it may be safer for patient to discharge to a SNF short term rehab Transportation Arrangement TBD Additional Comment TBD Whiteboard Updated in Patient Room with Yes name and ext. # of Clinical Resource Nurse Review Status In Process Please Provide Date Initial DC 05/26/24 Assessment Was Performed
[2024-05-26] MEDS: TRANEXAMIC ACID 1,000 MG in SODIUM CHLORIDE 0.9% 100 ML 200 MG IV ×2 (14:18→17:37)
[2024-05-26] MEDS: CEFAZOLIN 2 GM/100 ML PREMIX 100 ML IV ×2 (14:24→21:00)
--- NOTE | 2024-05-26 14:33 | SUR.OPER ---
Patient supine on padded [place] table, one arm on padded arm board at <90, other arm padded and secured with tape across patient's chest, both legs secured in padded traction boots and positioned per surgeon, padded post at patient's groin, pressure points checked and padded.
[2024-05-26] MEDS: ROPIVACAINE/EPI/CLONIDINE/KET 50 ML SYRINGE INJ (14:47)
[2024-05-26] MEDS: ACETAMINOPHEN IV 1,000 MG/100 ML VIAL 400 MG IV (14:49)
--- NOTE | 2024-05-26 17:59 | PM.OP.1 ---
Operative Date/Time/Diagnoses Date of procedure: 05/26/24 Pre-op diagnosis: Displaced left femoral neck fracture Post-op diagnosis: same Procedure & Clinicians Procedure: Cemented left hip hemiarthroplasty through a direct anterior approach with 2 cerclage cables placed for a spiral fracture of the femur which occurred during positioning the leg for broaching Same procedure as scheduled: Yes Surgeon: Sam Medrano Click Yes if Unassisted: Yes Anesthesia Type: General and Local Operative Notes Estimated Blood Loss (mL): 600 Procedure in detail: Left Direct Anterior Cemented [employer] Synergy Hemiarthroplasty for Femoral Neck Fracture Implants: Size 11 synergy Cemented Femoral Stem Size 45+8 Unipolar Femoral Head 2 Kinamed IsoElastic Cerclage Cables Procedure Summary: This 84-year-old female patient sustained both a displaced left femoral neck fracture and a minimally displaced left proximal humerus fracture in a ground level fall. She has extremely severe osteoporosis as I have actually cared for her in the past. She had sustained a right femoral neck fracture and during calcar planing of her bone on that side she sustained a calcar fracture which was addressed with cables. During today's procedure while manipulating the leg into place to begin broaching I heard an audible crack. On closer inspection I found that there was a large fracture of the femur extending and spiral fashion down below the lesser trochanter. I reduced this manually and held it in place with 2 Iso elastic cerclage cables, and then broached with those cables in place. I initially trialed with significantly undersized implants order to limit tension during reduction and dislocation. I did not do any stability testing during that initial trial but predominantly evaluated stem fit radiographically which I found to be appropriate. Given the low amount of tension I thought that I would be able to upsize heads in order to achieve an appropriate construct. I therefore cemented the stem in place and sequentially upsized to a +8 head to achieve appropriate stability and length. Procedure in Detail: This patient sustained a femoral neck fracture. Risks and benefits of operative versus nonoperative management were discussed at length with the patient who wished to proceed with operative management. ?The patient was met in the preoperative holding area. ?All questions were answered. ?The operative site was marked on the left limb. ?Informed consent was signed. ?The patient was brought back to the operating room where anesthesia was induced. The patient was transferred to the Hutchinson table and all bony prominences were padded. The operative site was prepped and draped in the usual sterile fashion. Prior to incision, tranexamic acid and cefazolin were administered. A timeout procedure was performed verifying the patient?s identity, medical comorbidities, allergies, relevant medications, anesthesia type and the surgical plan. All present were in agreement. No physician housekeeper/laundry assistant was available for the procedure so I used the [employer] Gripper system for soft tissue retraction. X-rays were displayed during the procedure demonstrating the fracture pattern on the injured hip. A direct anterior approach to the hip was utilized. This was performed with a longitudinal incision through a Heuter interval. The incision was planned 2 cm distal and 2 cm lateral to the ASIS extending towards the lateral patella, in line with the muscle body of the TFL. Following incision, the subcutaneous tissue was dissected while taking care to avoid injury to the lateral femoral cutaneous nerve. The fascia overlying the TFL was identified by dissecting off the overlying fat and identifying perforating vessels to the TFL. The TFL fascia was incised and dissected away from the medial border of the TFL. A cobra retractor was placed over the superior femoral neck between the abductors and the hip capsule and used to reflect the TFL laterally. A Bullock self-retainer was then placed in the distal aspect of the wound between the TFL and the rectus femoris. This was tensioned to open up the direct anterior interval and the lateral circumflex vessels were identified and coagulated using electrocautery. The floor of the TFL fascia was incised, exposing the pericapsular fat overlying the hip capsule. A second cobra retractor was placed on the inferior femoral neck. A double-bent soft tissue retractor was placed on the anterior wall of the acetabulum and used to tension the reflected head of rectus femoris, which was then released in order to limit soft tissue tension. A capsulotomy was made in the midline of the anterior hip capsule in line with the femoral neck ending at the vastus tubercle while ensuring the labrum was not transected proximally given the plans to preserve the wainwright acetabulum. The double-bent retractor was removed in order to limit the amount of time that a soft tissue retractor remained on the anterior wall and protect the femoral nerve. Tag stitches were placed in the superior and inferior leaflets of the hip capsule. An Abdullahi soft tissue retractor was introduced over the tag stitches and tensioned in the interval between the rectus femoris and the TFL in order to retract and protect those muscles. The cobra retractors were replaced intracapsularly, with one over the superior neck in the pocket created by the base of the greater trochanter and the other on the femoral head. The capsulotomy was extended laterally to the base of the greater trochanter and medially to the lesser trochanter. This required externally rotating the hip. Once the lesser trochanter had been identified, a freshening neck cut was made below the fracture site. The fracture fragments and femoral head were removed.?? Attention was then turned to the femur. All retractors were removed, traction was released, a retractor was placed in the interval between the hip capsule and the gluteus minimus, and the hip was externally rotated to 90 degrees. Traction was applied through the Hutchinson table to tension the lateral capsule and this was released using electrocautery. Traction was released and a Hutchinson hook was placed posteriorly around the proximal femur at the level of the vastus ridge. The table height was lowered in order to restrict the tension on the anterior structures during hip hyperextension to limit the risk of femoral nerve palsy. With traction off and the hip at 90 degrees of external rotation, the hip was hyperextended and adducted while manually elevating the femur away from the acetabulum with the Hutchinson hook to ensure it would not be caught behind the greater trochanter. The foot was externally rotated in the Hutchinson table and I heard an audible crack. I palpated the femur and found that there was a large displaced fracture extending in spiral fashion down past the lesser trochanter. The foot had been very gently rotated and there were no retractors in the wound at the time that the fracture occurred. There was nothing for the femur to catch on in that position. I postulate that there must have been some fracture extension down past the level of the neck cut and that that crack propagated distally when the foot was rotated. Obviously given her prior right femoral neck fracture during which she sustained a calcar split during that hemiarthroplasty as well as this fracture and the proximal humerus fracture, her bone quality is extremely poor. After identifying the fracture I extended the incision and worked down into a sub vastus approach to identify the distal extent of the fracture. It curved around posteriorly. Placed a cerclage cable through the sub vastus approach to hold in place the distal extent of it. I also placed a cerclage cable above the lesser trochanter by passing it around and then underneath the vastus lateralis to hold it in place in the area where I would be broaching. Once that had been done obtained radiographs demonstrating appropriate reduction. I then returned to the broaching position. An asymmetric retractor was placed over the calcar and a broad double-pronged retractor was placed over the greater trochanter. The tag stitch capturing the lateral leaflet of the capsule was moved to the medial side, leaving the conjoined and piriformis tendons isolated in the face of the greater trochanter. The hip was externally rotated and elevated. A release of the conjoined tendon was performed to maximize femoral exposure and minimize the risk of iatrogenic fracture during broaching. The canal was opened with an opening broach and a rasp was used to remove cancellous bone. A rongeur was used to remove the residual lateral bone at the base of the greater trochanter to avoid placing the stem in varus. The femur was then broached to the appropriate sized stem yielding good rotational fit and fill of the canal as well as appropriate version of the stem trial. Neck and head trials were placed, all retractors were removed and the hip was returned to neutral abduction and extension. I then reduced the hip. Initial trialing was performed with a size 11 broach, a standard offset neck and a 46- 4 head. I did not do any stability testing so as to protect her extremely fragile bone. An AP pelvis fluoroscopic image matching the preoperative standing radiograph with both lesser trochanters visible and both hips in 40 degrees of external rotation demonstrated that the construct was short relative to the contralateral side. AP and lateral hip fluoroscopic images were obtained to evaluate the broach size which demonstrated good canal fill. The hip was dislocated and I returned to the broaching position. Based on my evaluation during initial trialing I planned to place the size 11 stem and then sequentially upsized heads until I found an appropriate construct however I did not want to do any stability testing until I had a cemented stem in place. I then returned to the broaching position and prepared for cementation. Prior to cementation I irrigated the canal, placed a cement restrictor, irrigated the canal again, placed epinephrine-soaked vaginal packing with a whistle-tip catheter, and removed the whistle-tip catheter after insertion of cement. Cement was pressurized digitally and subsequently with the cement gun. The composite beam long stem was placed and impacted down. I repeated the trialing process initially with a +0 head. I had noted that the size 46 head did not fit completely into the acetabulum during my initial trialing so I downsized to a 45 head trial. I Reduced this and then externally rotated and found that it dislocated around 90?. I upsized to a +4 head, reduced it, and found that it dislocated with 120? of external rotation. I got a AP pelvis fluoroscopic image at that point in time which indicated that it was very slightly short. I upsized to a +8 head which resolved the instability with manual external rotation and appeared radiographically appropriate in terms of leg length and offset when measured on a AP pelvis fluoroscopic image with a long metal bar extending across the transitional line to control for fluoroscopic distortion. I therefore made preparations to implant that had size. I returned to the broaching position A unipolar hemiarthroplasty head was impacted into place on a clean dry trunnion. All retractors were removed and the hip was reduced. A dilute mixture of betadine and peroxide was used to bathe the soft tissues during final fluoroscopic assessment. Appropriate component positioning was confirmed on an AP pelvis radiograph with the operative and nonoperative legs in 40 degrees of external rotation, evaluating leg length and offset. Appropriate cement mantle and stem positioning was evaluated on AP and lateral hip radiographs. No fractures were identified on these radiographs. There was no hip instability with maximum (120 degrees) external rotation as well as a 45 degree drop test. The hip was closed using a combination of Vicryl Stratafix and Monocryl sutures. A dilute mixture of ropivacaine epinephrine clonidine and Toradol was infiltrated throughout the wound. Dermabond was applied. A soft dressing was applied. The patient was transferred off of the operating room table and brought to the PACU. ? Plan for aftercare: Transfer to floor following recovery in PACU Weightbearing as tolerated left lower extremity. Nonweightbearing left upper extremity which should be maintained in a sling. Mobilization will be very challenging because of her inability to use her left upper extremity for support due to her proximal humerus fracture. The assistance of physical therapy in any sort of mobilization that we can achieve for her is greatly appreciated Aspirin 81 twice per day for DVT prophylaxis Multimodal pain regimen with no IV opioids ordered Anticipate discharge to long term facility Follow up at [facility] in 2 weeks
--- NOTE | 2024-05-26 18:46 | PC.NURSE ---
Patient brought up from PACU 183, patient denies pain. Awakens and states I have no complaints. VSS, on 2L NC post op at this time. Re oriented to room and call light and bed alarm activated. Call light within reach. Aquacel dressing to left hip intact. Sling is on left arm. Lim is in place draining clear yellow urine.
[2024-05-26] MEDS: LACTATED RINGERS 1,000 ML 100 ML IV (18:57)
[2024-05-26] MEDS: ACETAMINOPHEN 325 MG TABLET 650 MG PO ×2 (18:57→23:12)
[2024-05-26] MEDS: ASPIRIN EC 81 MG TABLET PO (20:56)
[2024-05-26] MEDS: LACTATED RINGERS 1,000 ML 1000 ML IV (22:22)
[2024-05-26 22:36] LABS: Hematocrit 22.2 % (36-46); Hemoglobin 7.4 g/dL (12.0-16.0)
--- NOTE | 2024-05-26 22:57 | PC.NURSE ---
Hgn 7.[address] Mera and ordered to recheck H/H in the morning. Continue monitoring BP. If Hgb less than 7, order type and screen and transfuse. Pt BP better at 124/51 with MAP of 75. IV bolus still infusing in R wrist PIV. Pt asymptomatic
[2024-05-27] VITALS (12 sets, daily range): BP systolic 101–136; BP diastolic 44–66; PULSE 71–84; RESP 16–18; TEMP 35.9–36.8; O2SAT 91–100
[2024-05-27] MEDS: ONDANSETRON 4 MG/2 ML INJ IV (00:42)
[2024-05-27] MEDS: DICYCLOMINE 10 MG CAPSULE 20 MG PO (01:38)
[2024-05-27] MEDS: CEFAZOLIN 2 GM/100 ML PREMIX 100 ML IV (05:59)
[2024-05-27 06:09] LABS: Add Manual Diff / Slide Review NO; Basophils Absolute Auto 0 /uL (0-100); Basophils Percent Auto 0.1 % (0-2); Eosinophils Absolute Auto 0 /uL (0-450); Eosinophils Percent Auto 0.1 % (2-4); Lymphocytes Absolute Auto 1200 /uL (1100-4500); Lymphocytes Percent Auto 8.9 % (25-40); Mean Corpuscular HGB Conc 33.7 % (30-36); Mean Corpuscular Hemoglobin 31.9 PG (26-34); Mean Corpuscular Volume 94.7 fL (80-100); Monocytes Absolute Auto 1300 /uL (0-900); Neutrophils Absolute Auto 10900 /uL (1500-7000); Neutrophils Percent Auto 80.9 % (50-75); Platelet Count 158 X10^3/uL (150-400); Red Blood Cell Count 2.15 X10^6/uL (4.0-5.2); Red Cell Distribution Width 13.2 % (11.6-14.8); White Blood Cell Count 13.4 X10^3/uL (4.5-11.0)
[2024-05-27 06:20] LABS: Hemoglobin 6.8 g/dL (12.0-16.0)
[2024-05-27 06:21] LABS: Hematocrit 20.3 % (36-46)
[2024-05-27] MEDS: ACETAMINOPHEN 325 MG TABLET 650 MG PO ×3 (06:26→20:34)
[2024-05-27] MEDS: HYDROCODONE/ACET 5/325 TABLET 1 TAB PO (07:38)
--- NOTE | 2024-05-27 08:02 | PT-IP ANOTE ---
PT consult received. Pt s/p fall and left hip fracture and anterior hip replacement. No hyperextension and WBAT order for LLE received. Op note states NWB LUE. Pt's Hgb is trending downward and is too low for mobility today at 6.8. Con't to monitor, hold PT eval at this time.
[2024-05-27] MEDS: CITALOPRAM 10 MG TABLET PO (08:52)
[2024-05-27] MEDS: PANTOPRAZOLE DR 40 MG TABLET PO (08:52)
[2024-05-27] MEDS: ASPIRIN EC 81 MG TABLET PO ×2 (08:52→20:35)
--- NOTE | 2024-05-27 08:55 | P.PN_ITS ---
Subjective Subjective Date Patient Seen: 05/27/24 Time Patient Seen: 08:55 Interval history: Patient seen and evaluated this morning. Discussed care with nursing staff. Patient's vital signs have been stable since surgery. Blood pressure is a little bit lower today due to recent surgery anesthesia etc.. Lab tests were reviewed hemoglobin 6.8 this morning hematocrit 20.3. Patient having a little bit of pain. Patient is typed and screened. Blood type is B negative. Exam Vital Signs (past 8 hours): - 05/27/24 02:58 05/27/24 05:06 05/27/24 07:45 Temperature 97.4 F L 96.7 F L Pulse Rate 74 72 Respiratory Rate 16 18 Blood Pressure 108/52 L 116/55 L 117/52 L Pulse Oximetry 100 Oxygen Flow Rate 05/27/24 08:02 05/27/24 08:10 Temperature 97.1 F L 96.7 F L Pulse Rate 72 72 Respiratory Rate 18 18 Blood Pressure 121/44 L 117/52 L Pulse Oximetry 93 Oxygen Flow Rate 1 Fraction of Inspired Oxygen 28 SaO2/FiO2 Ratio 357 Oxygen Delivery Method Room Air Oxygen Flow Rate 1 Narrative Exam Narrative: Gen.: Alert arousable HEENT: Pupils equal round and reactive or mucosa is moist Cardio: S1-S2 regular rate and rhythm Respiratory: Normal respiratory effort no wheezes or crackles Abdomen: Soft nontender Extremities: Warm dry perfused Objective Labs 05/27/24 05:12 05/26/24 08:56 Labs: Laboratory Results - last 24 hr 05/26/24 05/26/24 05/27/24 08:56 22:27 05:12 WBC 7.8 13.4 H D RBC 3.37 L 2.15 L Hgb 10.9 L 7.4 L 6.8 L* Hct 31.8 L 22.2 L 20.3 L* MCV 94.5 94.7 MCH 32.3 31.9 MCHC 34.2 33.7 RDW 13.5 13.2 Plt Count 174 158 Neut % (Auto) 60.5 80.9 H D Lymph % (Auto) 24.4 L 8.9 L [place] % (Auto) 9.3 10.0 Eos % (Auto) 5.1 H 0.1 L Baso % (Auto) 0.7 0.1 Neut # (Auto) 4700 58941 H Lymph # (Auto) 1900 1200 Richardson # (Auto) 700 1300 H Eos # (Auto) 400 0 Baso # (Auto) 100 0 Sodium 131 L Potassium 4.6 Chloride 102 Carbon Dioxide 24 BUN 27 H Creatinine 0.91 Estimated GFR > 60 BUN/Creatinine Ratio 29.7 H Glucose 94 Calcium 8.6 Blood Type B Negative Antibody Screen Negative Crossmatch See Detail [facility] Medical History Closed fracture of right hip Impingement syndrome of right shoulder Cervical radiculopathy Radiculopathy, thoracic region Fibromyalgia (12/04/01) Osteoporosis (05/2017) 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 Social History marital status: household members: spouse housing: house Smoking Status: Never smoker alcohol intake: never substance use type: does not use Assessment & Plan Assessment and plan (1) Closed hip fracture: Qualifiers: Encounter type: initial encounter Laterality: left Qualified Code(s): S72.002A - Fracture of unspecified part of neck of left femur, initial encounter for closed fracture Status: Acute Plan Acute Left hip fracture after fall. Surgery yesterday. Acute blood loss anemia due to surgery. Patient type and screen. Would recommend blood transfusion due to patient's age and comorbid health conditions. Acute left shoulder fracture after fall osteoporosis contributing factor pathologic. Complicate her ability to recover from her hip fracture. Will most likely need prison facility. Osteoarthritis patient with arthritis of significant joints including cervical spine. Continue with pain management ambulate as soon as possible. Osteoporosis. Patient will need bisphosphonate on discharge. Hypertension. Blood pressure is much lower today. After surgery will continue antihypertensives. Irritable bowel syndrome with gastroesophageal reflux. Patient will be continued on her proton pump inhibitor and her dicyclomine. Depression. Patient will be continued on her antidepressant during her hospital stay. DVT prophylaxis with SCDs code status full code GI prophylaxis. Ambulate with physical therapy anticipate discharge to prison facility.. Time-Based Coding :: [TOTAL MINUTES] spent with patient and on the chart (including review of chart, obtaining history, exam, reviewing outside data, placing orders, documenting exam and treatment plan, and counseling patient) on [DATE]. Quality VTE Deep Vein Thrombosis/Pulmonary Embolism Present on Admission: No PROFEE Charge codes Subsequent inpatient/observation care: [id number]
--- NOTE | 2024-05-27 09:22 | OT.IPNOTE ---
Pt has low HH and hold OT eval.
--- NOTE | 2024-05-27 11:30 | PM.PNPO.1 ---
Subjective Subjective Interval history: She is doing reasonably well. She does note she is having some moderate pain in the left shoulder in the left hip. She is seen Dr. Pillai for years for cervical stenosis and is wondering if she might be able to have a muscle relaxant. She has not been up with physical therapy. She was hypotensive overnight in his anemic this morning. Her blood pressure did respond to a bolus but her hemoglobin and hematocrit are low this morning. Exam Vital Signs (past 8 hours): - 05/27/24 05:06 05/27/24 07:45 05/27/24 08:02 Temperature 97.4 F L 96.7 F L 97.1 F L Pulse Rate 74 72 72 Respiratory Rate 16 18 18 Blood Pressure 116/55 L 117/52 L 121/44 L Pulse Oximetry 100 Oxygen Delivery Method Oxygen Flow Rate Fraction of Inspired Oxygen 05/27/24 08:10 05/27/24 09:19 05/27/24 10:09 Temperature 96.7 F L 97 F L Pulse Rate 72 71 Respiratory Rate 18 18 Blood Pressure 117/52 L 118/60 Pulse Oximetry 93 94 Oxygen Delivery Method Nasal Cannula Oxygen Flow Rate 1 1 Fraction of Inspired Oxygen 24 Fraction of Inspired Oxygen 24 SaO2/FiO2 Ratio 391 Oxygen Delivery Method Nasal Cannula Oxygen Flow Rate 1 Narrative Exam Narrative: She is alert she is pleasant she is resting comfortably in bed she has a sling in place she has reasonable range of motion in her fingers slight stiffness in her wrist she is able to move her elbow and notes pain in her shoulder, left lower extremity dressings in place, there is no obvious swelling, she can fire toe flexors and extensors dressings dry, calf soft distally Objective Labs 05/27/24 05:12 05/26/24 08:56 Labs: Laboratory Results - last 24 hr 05/26/24 05/27/24 22:27 05:12 WBC 13.4 H D RBC 2.15 L Hgb 7.4 L 6.8 L* Hct 22.2 L 20.3 L* MCV 94.7 MCH 31.9 MCHC 33.7 RDW 13.2 Plt Count 158 Neut % (Auto) 80.9 H D Lymph % (Auto) 8.9 L [place] % (Auto) 10.0 Eos % (Auto) 0.1 L Baso % (Auto) 0.1 Neut # (Auto) 70514 H Lymph # (Auto) 1200 [place] # (Auto) 1300 H Eos # (Auto) 0 Baso # (Auto) 0 Blood Type B Negative Antibody Screen Negative Crossmatch See Detail [facility] Medical History Closed fracture of right hip Impingement syndrome of right shoulder Cervical radiculopathy Radiculopathy, thoracic region Fibromyalgia (12/04/01) Osteoporosis (05/2017) 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 Social History marital status: household members: spouse housing: house Smoking Status: Never smoker alcohol intake: never substance use type: does not use Assessment & Plan Post-op Postoperative Procedures: Procedures Operation Date: 05/26/24 13:00 Actual Procedure Side Surgeon p Hip Hemiarthroplasty Left Sam Medarno MD Postoperative day: 1 Postoperative status: anemia Postoperative status narrative: She has significant postop blood loss anemia with some mild chronic low-grade preoperative anemia. I have recommended transfusion of 2 units of packed RBCs. She can mobilize be mobilized weight-bearing as tolerated on the left lower extremity. I told her we can try and get her back on her muscle relaxants and we will work on trying to improving her pain control postoperatively. She has taken some intermittent tramadol and says that she does tolerate opioids. Quality VTE Deep Vein Thrombosis/Pulmonary Embolism Present on Admission: No
[2024-05-27] MEDS: CYCLOBENZAPRINE 10 MG TABLET PO ×2 (11:34→20:36)
--- NOTE | 2024-05-27 12:43 | OT.IPNOTE ---
Pt still receiving blood at this time, to check the pt tomorrow for OT eval.
--- NOTE | 2024-05-27 12:56 | PT-IP ANOTE ---
Pt receiving second unit of blood. Will initiate PT eval next date.
--- NOTE | 2024-05-27 14:37 | CM.DPNOTE ---
DCP Note [facility] reviewed EMR. Per nursing staff, low H&H, getting unit of blood. PT/OT attempted to work with pt, have been unable to due to getting blood transfusion. Per Dr. Mera, anticipates needing SNF placement. Unable to meet with today due to triaging needs. likely SNF referrals needed once can participate in therapies (need to submit for auth). PASRR needed. P: plan to monitor for final DCP recs with PT/OT evals. will complete SNF referral once preferences are known if needed. CM team will continue to follow closely GINGER Longo
[2024-05-27 16:00] LABS: Hematocrit 28.7 % (36-46)
[2024-05-27] MEDS: DOCUSATE 100 MG CAPSULE PO (20:35)
[2024-05-27] MEDS: OXYCODONE IR 5 MG TABLET PO (20:35)
[2024-05-28] MEDS: OXYCODONE IR 5 MG TABLET PO ×4 (01:01→18:38)
[2024-05-28] MEDS: ACETAMINOPHEN 325 MG TABLET 650 MG PO ×3 (01:01→18:38)
[2024-05-28 05:44] LABS: Add Manual Diff / Slide Review NO; Basophils Absolute Auto 0 /uL (0-100); Basophils Percent Auto 0.3 % (0-2); Eosinophils Absolute Auto 300 /uL (0-450); Eosinophils Percent Auto 2.2 % (2-4); Hematocrit 28.5 % (36-46); Hemoglobin 9.8 g/dL (12.0-16.0); Lymphocytes Absolute Auto 1800 /uL (1100-4500); Lymphocytes Percent Auto 14.5 % (25-40); Mean Corpuscular HGB Conc 34.4 % (30-36); Mean Corpuscular Hemoglobin 31.7 PG (26-34); Mean Corpuscular Volume 92.1 fL (80-100); Monocytes Absolute Auto 1300 /uL (0-900); Monocytes Percent Auto 10.6 % (3-14); Neutrophils Absolute Auto 9000 /uL (1500-7000); Neutrophils Percent Auto 72.4 % (50-75); Platelet Count 143 X10^3/uL (150-400); Red Blood Cell Count 3.09 X10^6/uL (4.0-5.2); Red Cell Distribution Width 13.8 % (11.6-14.8); White Blood Cell Count 12.5 X10^3/uL (4.5-11.0)
[2024-05-28 05:58] LABS: BUN Creatinine Ratio 21.5 (6-22); Blood Urea Nitrogen 20 mg/dL (7-17); Calcium 8.1 mg/dL (8.4-10.2); Carbon Dioxide 26 mmol/L (22-32); Chloride 103 mmol/L (98-107); Estimated Glomerular Filt Rate 60 mL/min (>60); Glucose 112 mg/dL (80-110); HEMOLYSIS < 15 (0-50); Potassium 4.5 mmol/L (3.4-5.1); Sodium 131 mmol/L (137-145)
[2024-05-28 08:00] VITALS: BP 134/62; PULSE 74; RESP 16; TEMP 36.6; O2SAT 93
--- NOTE | 2024-05-28 08:37 | PT.IIE ---
Current Diagnoses Laceration without foreign body of other part of head, subsequent encounter (05/25/24) Other displaced fracture of upper end of right humerus, initial encounter for closed fracture (05/25/24) Other displaced fracture of upper end of left humerus, initial encounter for closed fracture (05/25/24) Fracture of unspecified part of neck of left femur, initial encounter for closed fracture (05/25/24) Surgery Performed Operation Date: 05/26/24 13:00 Actual Procedures p Hip Hemiarthroplasty(Left) - Sam Medrano MD Surgical History (Last Reviewed 05/25/24 @ 16:41 by Omega Poon MD) History of right hip hemiarthroplasty (02/07/23) S/P appendectomy S/P hysterectomy S/P mastectomy Medical History (Last Reviewed 05/25/24 @ 16:41 by Omega Poon MD) Breast cancer (2001) Cervical radiculopathy Chickenpox (Unknown) Chronic back pain (1999) Closed fracture of right hip Colitis (1979) Fibromyalgia (12/04/01) GERD (gastroesophageal reflux disease) (1979) History of malignant neoplasm of breast (12/22/15) Impingement syndrome of right shoulder Irritable bowel syndrome without diarrhea (12/22/15) Kidney stones (1989) Measles (Unknown) Midline low back pain without sciatica (12/22/15) Mumps (Unknown) Osteoporosis (05/2017) Radiculopathy, thoracic region Sleep apnea (2009) 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) Uncomplicated opioid use (03/12/17) Physical Therapy Inpatient Evaluation/Re-Eval M1 PT/OT-IP Prior Functional Status Start: 05/27/24 08:00 Freq: NEEDED Status: Active Protocol: Document 05/28/24 07:45 MB (Rec: 05/28/24 08:37 MB [id number]) Medical Review Prior Functional Status Medical History Reviewed Yes Diet/Fluid Consistency Regular Communication WNLs Mobility and Gait I, no AD, lives alone, drives, walks dog Activities of Daily Living and IADL's I per report Social History Household Members spouse Living Arrangements House Number of Floors (Floors) One Floor Number of Stairs To Enter/Railing? Ramped entrance Home Environment Standard Height Toilet,Walk in Shower,Ramp Home Equipment Manual Wheelchair,Bedside Commode,Shower Seat with Backrest,Hand Held Shower,Grab Bars Near Toilet,Grab Bars In Shower Employment Status Retired Additional Social History Comment SW Pt is right hand dominant M2 PT-IP Current Condition Start: 05/27/24 08:00 Freq: NEEDED Status: Active Protocol: Document 05/28/24 07:45 MB (Rec: 05/28/24 08:37 MB [id number]) Physical Therapy Current Condition Current Condition Evaluation Date 05/28/24 Treatment Diagnosis Left humeral and femoral fractures, s/p left anterior THR M3 PT-IP Subjective Start: 05/27/24 08:00 Freq: NEEDED Status: Active Protocol: Document 05/28/24 07:45 MB (Rec: 05/28/24 08:37 MB [id number]) Subjective Physical Therapy Visit Type Type Initial Evaluation Visit Start Time 07:45 Visit Stop Time 08:15 Number of FIELD SERVICE COORDINATOR Visits 0 Physical Therapy Visit Comments Patient Comments Pt is talkative, pleasant and agreeable to PT Therapy Pain Assessment Pain When Pain Assessed At Rest Pain Present Pain Present Pain Reported Location Left Hip Intensity 9 Scale Used Numeric (0 - 10) M4 PT-IP Mobility and Gait Start: 05/27/24 08:00 Freq: NEEDED Status: Active Protocol: Document 05/28/24 07:45 MB (Rec: 05/28/24 08:37 MB [id number]) PT-Bed Mobility Assessment Supine to Sit Supine to Sit Maximum Assistance,1 Person Assistance,Head of Bed Elevated,Bedrails Scooting Scooting to Edge of Bed Maximum Assistance Scooting Up and Down in Bed Minimal Assistance PT-Transfer Assessment Sit to and From Stand Sit to and from Stand Maximum Assistance,1 Person Assistance Equipment Transfer Assistive Device Vazquez Walker Orthotic/Prosthetic Devices or Brace: Yes Transfers Transfer Destination Chair Transfer Technique Stepping Transfer Ability Level of Assist Maximum Assistance,2 Person Assistance,Use of Upper Extremities Comments Mobility Comments PT provides min A to move left leg to the left to the side of the bed, HOB increased, PT assists pt to move right hand to HOB rail. Pt is able to initially scoot body to the left to the EOB. Max A to reach full upright with PT supporting trunk and guiding pt's right hand to bed rail near foot of bed. Max A with pad to full scoot hips out to EOB. Pt with severe orthostasis and c/o nausea as BP drops. BP and HR in RUE: hook lying 153/67, 78; sitting EOB 127/65, 78; standing 110/ 63. 78; once sitting up in chair when pt is most symptomatic: 88/47, 89 and BP increases to 121/62 after sitting upright with legs elevated in chair several minutes. Gait Assessment Gait Gait Assistance Required: Maximum Assistance,2 Person Assist Distance (Feet) 1 Able to Maintain Weight Bearing Status Yes During Gait Assistive Devices Assistive Device Gait Belt,Vazquez Walker Orthotic/Prosthetic Devices or Brace: Yes Gait Deviations General Gait Pattern Antalgic,Decreased Stride Length,Decreased Feet Clearance,Flexed Trunk,Step-to Gait,Wide Based Gait Factors Limiting Gait Function Factors Limiting Gait Function Decreased Activity Tolerance, Decreased Strength,Difficulty Following Directions, Incoordination,Limited Range of Motion,Pain,Poor Balance Comments Gait Comments Left arm in sling and pt lightly holds PT's left hand for assurance with stepping as PT holds onto gait belt and pt using right hemiwalker and SHIRT CLOSER assisting to move hemiwalker, cues from PT, small steps and foot clearance PT-Balance Assessment Sitting Balance and Reactions Static Sitting Balance Ability Fair Dynamic Sitting Balance Ability Poor Standing Balance and Reactions Static Standing Balance Ability Fair Dynamic Standing Balance Ability Poor Device Used Right hemiwalker M5 PT-IP Objective Assessments Start: 05/27/24 08:00 Freq: NEEDED Status: Active Protocol: Document 05/28/24 07:45 MB (Rec: 05/28/24 08:37 MB [id number]) Orientation Orientation/Cognition Level of Alertness Alert Orientation Name,Age,Birthday,Month,Date, Year,Day of Week,Place, Situation Language Function Ability No Deficits Noted Safety Awareness Decreased Safety Awareness Memory Description No Deficits Noted Gross Range of Motion Upper Extremity ROM Assessment Left Impaired Impairments Defer to OT, left arm in sling Lower Extremity ROM Assessment Left Impaired Impairments Minimal active left toe and ankle ROM as well as limited left knee and hip ROM s/p fracture and replacement Strength Upper Extremity Strength Assessment Left Impaired Lower Extremity Strength Assessment Left Impaired Comments Strength Comments See ROM comments above, pt cannot tolerate MMT LLE Coordination Assessment Gross Coordination Gross Coordination Impaired Assessment Coordination Comments Left arm in sling and left leg is painful Sensation Assessment Comments Sensation Comments Pt reports sensation is intact B LEs M6 PT-IP Treatment Start: 05/27/24 08:00 Freq: NEEDED Status: Active Protocol: Document 05/28/24 07:45 MB (Rec: 05/28/24 08:37 MB [id number]) Physical Therapy Treatment Exercises Exercises Ankle Pumps Education Education Provided Precautions,Weight Bearing Status,Safety M7 PT-IP Assessment and Plan Start: 05/27/24 08:00 Freq: NEEDED Status: Active Protocol: Document 05/28/24 07:45 MB (Rec: 05/28/24 08:37 MB [id number]) PT Summary Assessment and Plan Potential Rehabilitation Potential Good Status of Condition at Evaluation Evolving Summary Impairments Pain,ROM,Strength,Balance, Coordination,Bed Mobility, Transfers,Gait,Activity Tolerance Progress Towards Goals Slow Progress due to Pain,Slow Progress due to Activity Tolerance Assessment Summary Pt is an 84 y/o female who makes an excellent effort with PT this a.m. s/p fall, left humeral and femoral neck fractures s/p left anterior HERNAN. Pt is A&O and reports high pain but she is not fearful of mobility and she mobilizes and follows commands despite pain, left arm in sling and severe orthostasis. Her BP drops a lot and she is nauseated and her face is pale once getting to the chair and PT raises legs in recliner and lets nsg know. BP does recover. Recommend SNF at d/c. Goals Bed Mobility Goal Standby Assistance Transfer Goal Standby Assistance Gait Goal Standby Assistance,Vazquez Walker Gait Distance 50 Other Goals Use of hemiwalker for gait and transfers Days to Meet Goals 5 Frequency of Treatment Other frequency 1-2x/day Treatment Plan Physical Therapy Treatment Plan Bed Mobility Training,Transfer Training,Gait Training, Therapeutic Exercise,Balance Retraining,Post Op Education, Discharge Planning,Hot or Cold Pack,Neuromuscular Re-ed, Coordination Retraining,Manual Therapy Precautions Shoulder Precautions Sling Brace Sling LUE and NWB Other Precautions No hyperextension left hip Weight Bearing Status Weight Bearing Status Weight Bear as Tolerated Allowed Weight Bearing Amount (enter % LLE or #) (%) Recommendations To Nursing Amount of Assist Needed 2 Person Assist Discharge Recommendations PT Discharge Recommendations SNF Rehab Transportation Needs at Discharge Wheelchair/Cabulance
--- NOTE | 2024-05-28 08:43 | PC.NURSE ---
Addendum entered by Esperanza Crespo R.N. 05/28/24 09:11: Patient just given oxycodone for 5/10 pain to l.hip. She is resting in chair. Original Note: Patient is up in her chair. She went hypotensive when getting up to the chair with systolic in the 88s and then when patient sat back down she went up to 121/60s. Patient has a sling on her arm, and dressing to l.hip is cdi.
[2024-05-28] MEDS: hydroCHLOROthiazide 25 MG TABLET 12.5 MG PO (08:57)
[2024-05-28] MEDS: PANTOPRAZOLE DR 40 MG TABLET PO (08:59)
[2024-05-28] MEDS: CITALOPRAM 10 MG TABLET PO (08:59)
[2024-05-28] MEDS: DOCUSATE 100 MG CAPSULE PO ×2 (08:59→21:23)
[2024-05-28] MEDS: ASPIRIN EC 81 MG TABLET PO ×2 (08:59→21:24)
--- NOTE | 2024-05-28 10:32 | CM.DPC ---
DCP Cont. Reviewed EMR and team rounds for status updates. Pt is going to need SNF rehab. Called pt's dtr, Yaz, to discuss and clarify preference for facility. Per her request, this [employer] [facility] sent referral to [facility]. They will start the [employer] MCR auth today. Monitoring closely, will update family once GIORGIO is known.
--- NOTE | 2024-05-28 10:35 | OT.IP.EVAL ---
Current Diagnoses Laceration without foreign body of other part of head, subsequent encounter (05/25/24) Other displaced fracture of upper end of right humerus, initial encounter for closed fracture (05/25/24) Other displaced fracture of upper end of left humerus, initial encounter for closed fracture (05/25/24) Fracture of unspecified part of neck of left femur, initial encounter for closed fracture (05/25/24) Surgery Performed Operation Date: 05/26/24 13:00 Actual Procedures p Hip Hemiarthroplasty(Left) - Sam Medrano MD Past Medical History (Last Reviewed 05/25/24 @ 16:41 by Omega Poon MD) Breast cancer (2001) Cervical radiculopathy Chickenpox (Unknown) Chronic back pain (1999) Closed fracture of right hip Colitis (1979) Fibromyalgia (12/04/01) GERD (gastroesophageal reflux disease) (1979) History of malignant neoplasm of breast (12/22/15) Impingement syndrome of right shoulder Irritable bowel syndrome without diarrhea (12/22/15) Kidney stones (1989) Measles (Unknown) Midline low back pain without sciatica (12/22/15) Mumps (Unknown) Osteoporosis (05/2017) Radiculopathy, thoracic region Sleep apnea (2009) 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) Uncomplicated opioid use (03/12/17) Surgical History (Last Reviewed 05/25/24 @ 16:41 by Omega Poon MD) History of right hip hemiarthroplasty (02/07/23) S/P appendectomy S/P hysterectomy S/P mastectomy Occupational Therapy Inpatient Evaluation/Re-Eval M1 PT/OT-IP Prior Functional Status Start: 05/27/24 08:00 Freq: NEEDED Status: Active Protocol: Document 05/28/24 10:36 [facility] (Rec: 05/28/24 10:50 [facility] [id number]) Medical Review Prior Functional Status Medical History Reviewed Yes Diet/Fluid Consistency Regular Communication WNLs Mobility and Gait I, no AD, lives alone, drives, walks dog Activities of Daily Living and IADL's I per report Social History Household Members spouse Living Arrangements House Number of Floors (Floors) One Floor Number of Stairs To Enter/Railing? Ramped entrance Home Environment Standard Height Toilet,Walk in Shower,Ramp Home Equipment Manual Wheelchair,Bedside Commode,Shower Seat with Backrest,Hand Held Shower, Urban Planning Professor,Sock Aid,Grab Bars Near Toilet,Grab Bars In Shower Employment Status Retired Additional Social History Comment SW, 3ww Pt is right hand dominant M2 OT-IP Current Condition Start: 05/28/24 10:36 Freq: Status: Active Protocol: Document 05/28/24 10:36 [facility] (Rec: 05/28/24 10:50 [facility] [id number]) Occupational Therapy Current Condition Current Condition Evaluation Date 05/28/24 Treatment Diagnosis Left humeral and femoral fx from GLF, Left hip anterior precautions Diagnosis Onset Date 05/25/24 Weight Bearing Status Allowed Weight Bearing Amount (enter % NWB LUE, WBAT for LLE or #) (%) M3 OT- IP Subjective and Pain Start: 05/28/24 10:36 Freq: Status: Active Protocol: Document 05/28/24 10:36 [facility] (Rec: 05/28/24 10:50 [facility] [id number]) OT- Subjective Occupational Therapy Visit Type Type Initial Evaluation Visit Start Time 09:48 Visit Stop Time 10:35 Occupational Therapy Visit Comments Patient Comments Pt agreed to get up to use the BSC. Patient/Caregiver Goals TO get better. OT Pain Assessment Pain When Pain Assessed During Mobility Pain Present Pain Present Pain Reported Location Left Hip Intensity 7 Scale Used Numeric (0 - 10) M4 OT- IP ADL's Start: 05/28/24 10:36 Freq: Status: Active Protocol: Document 05/28/24 10:36 [facility] (Rec: 05/28/24 10:50 [facility] [id number]) OT [id number] Comments OT Self-Feeding Comments Assist with set-up. OT ADL-Grooming General Evaluation Areas Needing Assistance Retrieving/Set-up of Grooming Items Comments OT Grooming Comments While seated. OT ADL-Oral Care General Eval Oral Care Ability Standby Assistance Areas of Assistance Retrieving/Set-Up of Items Comments Oral Care Comments WHile seated. OT ADL-Dressing General Eval Lower Body Dressing Ability Total Assistance Areas Needing Assistance Underpants/Brief,Socks OT ADL-Toileting General Evaluation Toileting Ability Total Assistance Areas Needing Assistance Manage Clothing,Perform Perineal Hygiene OT ADL-Bathing Comments OT Bathing Comments Sponge bath more appropriate at this time. M5 OT- IP IADL's Start: 05/28/24 10:36 Freq: Status: Active Protocol: Document 05/28/24 10:36 [facility] (Rec: 05/28/24 10:50 [facility] [id number]) OT-Instrumental Activities of Daily Living Deficits IADL Deficits Identified Deficits Home Safety Awareness Awareness of Need for Assistance at Home Good Awareness Ability to Problem Solve Emergency Able to Problem Solve Situations Medication Management Medication Management Comments Prior pr did on her own. Meal Preparation Meal Preparation Comments Prior pt did on her own. Recycling Or Rubbish Collector Recycling Or Rubbish Collector Comments Pt will need assist. M6 OT- IP Functional Cognition Start: 05/28/24 10:36 Freq: Status: Active Protocol: Document 05/28/24 10:36 [facility] (Rec: 05/28/24 10:50 [facility] [id number]) Cognitive Factors Limiting Selfcare Function Cognitive Ability Level of Alertness Alert Patient Orientation Name,Age,Birthday,Month,Date, Year,Day of Week,Place, Situation Attention Span Ability Capable of Focused Attention, Capable of Sustained Attention Ability to Follow Commands Able to Follow One Step Commands Cognitive Comments Cognitive Assessment Comments Pt O x4 and able to follow commands for ADL and mobility needs. OT- Vision and Hearing OT- Hearing Assessment OT- Hearing Assessment WFL OT- Vision Assessment Visual Acuity Glasses All The Time Vision Assessment Comments Pt's glasses broke and pt to get someone to get her old pair here. M7 OT- IP Mobility and Balance Start: 05/28/24 10:36 Freq: Status: Active Protocol: Document 05/28/24 10:36 [facility] (Rec: 05/28/24 10:50 [facility] [id number]) OT- Bed Mobility Assessment Sit to Supine Sit to Supine Assist Maximum Assistance,1 Person Assistance Scooting Scooting to Edge of Bed Maximum Assistance,1 Person Assistance OT-Transfer Assessment Transfers Transfer Ability Maximum Assistance,2 Person Assistance Technique Transfer Destination Bed,Bedside Commode,Chair Transfer Technique Stand Step Pivot Devices Transfer Assistive Devices None,Gait Belt,Vazquez Walker Comments Mobility Comments Sitting BP 131/60 after standing 100/62, 113/53, and while seated on the BSC 144/71 . MAXA X2 to stand to the FWW and able to shuffle her foot side to side to get part way to the BSc. NUrsing able to switch to the BS whiel pt standing. Stand pivot from BSC to bed and pt able to hold onto OT and nursing assisted from the back. OT- Balance Assessment Sitting Balance and Reactions Static Sitting Balance Ability Good Dynamic Sitting Balance Ability Fair Standing Balance and Reactions Static Standing Balance Ability Poor Dynamic Standing Balance Ability Poor M8 OT- IP Objective Assessments Start: 05/28/24 10:36 Freq: Status: Active Protocol: Document 05/28/24 10:36 [facility] (Rec: 05/28/24 10:50 [facility] [id number]) OT Gross Range of Motion Upper Extremity Range of Motion Assessment Left Impaired ROM Impairments NT at left shoulder, WFL from elbow to distal. OT Strength Upper Extremity Strength Assessment Left Impaired Comments Strength Comments MMT not tested due to fx at left shoulder. M9 OT- IP Assessment and Plan Start: 05/28/24 10:36 Freq: Status: Active Protocol: Document 05/28/24 10:36 [facility] (Rec: 05/28/24 10:50 [facility] [id number]) OT Summary Assessment and Plan Potential Rehabilitation Potential Good Analytic Complexity at Evaluation Moderate Summary OT Impairments Pain,Strength,Balance, Functional Mobility,Self- Feeding,Grooming,Dressing, Toileting,Bathing,Toilet Transfers,Shower Transfers, Activity Tolerance Progress Towards Goals Progressing Toward Goals Assessment Summary Pt Mod complexity and main barriers are pain, NWB to LUE and arm in sling at this time. Pt lives alone and best to go to skilled rehab. Pt able to participate in transfer to BS and back to bed today for OT eval with 2 person assist. Goals Self-Feeding Goal Independent Grooming Goal Independent Dressing Goal Independent Toileting Goal Independent Bathing Goal Minimal Assistance Toilet Transfer Goal Independent Shower Transfer Goal Standby Assistance Days to Meet Goals 60 Frequency of Treatment Other frequency 5x/week Treatment Plan OT Treatment Plan ADL Training,Functional Mobility,Patient/Family Education,Discharge Planning Other Treatment Recommendations and Next Transfer with hemiwalker to Treatment Focus [facility] MODA x2. Discharge Recommendations OT Discharge Recommendations SNF Rehab Transportation Needs at Discharge Wheelchair/Cabulance
--- NOTE | 2024-05-28 10:48 | P.PN_ITS ---
Subjective Subjective Date Patient Seen: 05/28/24 Time Patient Seen: 10:48 Interval history: [id number]-[id number] left and shoulder pain. No numbness tingling left upper extremity or the left lower extremity. She was able to get out of bed this morning with physical therapy and sit in the bedside chair for short period of time. No fever /chills. No shortness of breath or chest pain. Exam Vital Signs (past 8 hours): - 05/28/24 08:00 Temperature 97.9 F Pulse Rate 74 Respiratory Rate 16 Blood Pressure 134/62 Pulse Oximetry 93 Fraction of Inspired Oxygen 21 SaO2/FiO2 Ratio 391 Oxygen Delivery Method Room Air Oxygen Flow Rate 0 Narrative Exam Narrative: Pleasant 84-year-old female resting comfortably in bed in no apparent distress. Motor functions intact left upper extremity with good movement of her fingers and left wrist. Sensation intact to light touch left upper and lower extremities. She has good capillary refill left upper extremity. The left leg is warm and dry. Able to move her toes and wave her ankle, left lower extremity. Left hip dressing is clean, dry and intact. Const General: cooperative and comfortable Nutritional Appearance: average body habitus Orientation: alert Resp Effort & Inspection: normal respiratory effort and able to speak in complete sentences Objective Labs 05/28/24 04:53 05/28/24 04:53 Labs: Laboratory Results - last 24 hr 05/27/24 05/27/24 05/28/24 05:12 15:53 04:53 WBC 12.5 H RBC 3.09 L Hgb 10.0 L 9.8 L Hct 28.7 L 28.5 L MCV 92.1 MCH 31.7 MCHC 34.4 RDW 13.8 Plt Count 143 L Neut % (Auto) 72.4 Lymph % (Auto) 14.5 L Darke % (Auto) 10.6 Eos % (Auto) 2.2 Baso % (Auto) 0.3 Neut # (Auto) 9000 H Lymph # (Auto) 1800 Darke # (Auto) 1300 H Eos # (Auto) 300 Baso # (Auto) 0 Sodium 131 L Potassium 4.5 Chloride 103 Carbon Dioxide 26 BUN 20 H Creatinine 0.93 Estimated GFR 60 BUN/Creatinine Ratio 21.5 Glucose 112 H Calcium 8.1 L Blood Type B Negative Antibody Screen Negative Crossmatch See Detail [facility] Medical History Closed fracture of right hip Impingement syndrome of right shoulder Cervical radiculopathy Radiculopathy, thoracic region Fibromyalgia (12/04/01) Osteoporosis (05/2017) 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 Social History marital status: household members: spouse housing: house Smoking Status: Never smoker alcohol intake: never substance use type: does not use Assessment & Plan Post-op Postoperative Procedures: Procedures Operation Date: 05/26/24 13:00 Actual Procedure Side Surgeon p Hip Hemiarthroplasty Left Sam Medrano MD Postoperative day: 2 Postoperative status: doing well Postoperative plan: routine post-op care Quality VTE Deep Vein Thrombosis/Pulmonary Embolism Present on Admission: No
--- NOTE | 2024-05-28 13:36 | P.PN_ITS ---
Subjective Subjective Date Patient Seen: 05/28/24 Time Patient Seen: 13:05 Interval history: Patient is seen resting comfortably in bed this afternoon. Denies significant postoperative discomfort, was able to participate in PT/OT earlier today. Was having some difficulty passing bowel movement but successful after administration of laxative. Exam Vital Signs (past 8 hours): - 05/28/24 08:00 Temperature 97.9 F Pulse Rate 74 Respiratory Rate 16 Blood Pressure 134/62 Pulse Oximetry 93 Fraction of Inspired Oxygen 21 SaO2/FiO2 Ratio 391 Oxygen Delivery Method Room Air Oxygen Flow Rate 0 Narrative Exam Narrative: General: Pleasant, NAD HEENT: NC, L side periorbital bruising, EOMI, moist membranes CV: RRR, normal S1-S2, no m/g/r Resp: CTAB, comfortable WOB Abd: Soft, NTND, +BS Ext: L arm in sling, LLE with clean post-op dressing, no significant local tenderness or erythema Skin: No rash noted Neuro: A&O x3, no focal deficits Objective Labs 05/28/24 04:53 05/28/24 04:53 Labs: Laboratory Results - last 24 hr 05/27/24 05/27/24 05/28/24 05:12 15:53 04:53 WBC 12.5 H RBC 3.09 L Hgb 10.0 L 9.8 L Hct 28.7 L 28.5 L MCV 92.1 MCH 31.7 MCHC 34.4 RDW 13.8 Plt Count 143 L Neut % (Auto) 72.4 Lymph % (Auto) 14.5 L [place] % (Auto) 10.6 Eos % (Auto) 2.2 Baso % (Auto) 0.3 Neut # (Auto) 9000 H Lymph # (Auto) 1800 [place] # (Auto) 1300 H Eos # (Auto) 300 Baso # (Auto) 0 Sodium 131 L Potassium 4.5 Chloride 103 Carbon Dioxide 26 BUN 20 H Creatinine 0.93 Estimated GFR 60 BUN/Creatinine Ratio 21.5 Glucose 112 H Calcium 8.1 L Crossmatch See Detail [facility] Medical History Closed fracture of right hip Impingement syndrome of right shoulder Cervical radiculopathy Radiculopathy, thoracic region Fibromyalgia (12/04/01) Osteoporosis (05/2017) 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 Social History marital status: household members: spouse housing: house Smoking Status: Never smoker alcohol intake: never substance use type: does not use Assessment & Plan Assessment and plan (1) Closed hip fracture: Qualifiers: Encounter type: initial encounter Laterality: left Qualified Code(s): S72.002A - Fracture of unspecified part of neck of left femur, initial encounter for closed fracture Status: Acute (2) Fracture of head of humerus: Qualifiers: Encounter type: initial encounter Fracture type: closed Laterality: l eft Qualified Code(s): S42.292A - Other displaced fracture of upper end of left humerus, initial encounter for closed fracture Status: Acute (3) Anemia: Qualifiers: Anemia type: unspecified type Qualified Code(s): D64.9 - Anemia, unspecified Status: Chronic (4) Osteoporosis: Qualifiers: Osteoporosis type: age-related Presence of current pathological fracture: with current pathological fracture Encounter type: sequela Qualified Code(s): M80.00XS - Age-related osteoporosis with current pathological fracture, unspecified site, sequela Status: Chronic (5) Essential hypertension: Status: Chronic (6) Irritable bowel syndrome without diarrhea: Status: Chronic (7) Cervical radiculopathy: Status: Acute Assessment & Plan narrative: #left hip fracture #left proximal humeral fracture S/p left hip hemiarthroplasty with cerclage cables placed for spiral fracture of femur which occurred during positioning of leg during surgery. Humeral fracture managed non-operatively with sling immobilization. Generally recovering well and able to participate in PT/OT today. Will need SNF discharge, placement pending. -ASA 81 mg b.i.d. per ortho recs #osteoarthritis with radiculopathy Arthritic pain with nerve impingement affecting multiple joints, particularly cervical spine. -continue home cyclobenzaprine #osteoporosis Contributing factor to pathologic humeral and hip fractures. -consider bisphosphonate therapy on discharge #anemia Acute on chronic due to intraoperative blood loss. Improved 6.8 -> 10.0 -> 9.8 s/p 2u pRBC. -trend CBC #IBS -home dicyclomine, citalopram omeprazole #hypertension -home lisinopril-HCTZ Diet: Regular DVT ppx: ASA 81 mg b.i.d. Code: Full PCP: Mateus Dispo: SNF Time-Based Coding :: 30 spent with patient and on the chart (including review of chart, obtaining history, exam, reviewing outside data, placing orders, documenting exam and treatment plan, and counseling patient) on 05/28/2024. Quality VTE Deep Vein Thrombosis/Pulmonary Embolism Present on Admission: No IH PROFEE Charge codes Subsequent inpatient/observation care: [id number]
[2024-05-28 20:00] VITALS: BP 128/57; PULSE 100; RESP 18; TEMP 36.9; O2SAT 93
[2024-05-29] MEDS: ACETAMINOPHEN 325 MG TABLET 650 MG PO ×2 (01:17→08:43)
[2024-05-29 06:50] LABS: Add Manual Diff / Slide Review NO; Basophils Absolute Auto 100 /uL (0-100); Basophils Percent Auto 0.4 % (0-2); Eosinophils Absolute Auto 400 /uL (0-450); Eosinophils Percent Auto 3.1 % (2-4); Hematocrit 27.2 % (36-46); Hemoglobin 9.4 g/dL (12.0-16.0); Lymphocytes Absolute Auto 2200 /uL (1100-4500); Lymphocytes Percent Auto 16.4 % (25-40); Mean Corpuscular HGB Conc 34.6 % (30-36); Mean Corpuscular Hemoglobin 32.3 PG (26-34); Mean Corpuscular Volume 93.5 fL (80-100); Monocytes Absolute Auto 1500 /uL (0-900); Monocytes Percent Auto 10.7 % (3-14); Neutrophils Absolute Auto 9400 /uL (1500-7000); Neutrophils Percent Auto 69.4 % (50-75); Platelet Count 190 X10^3/uL (150-400); Red Blood Cell Count 2.91 X10^6/uL (4.0-5.2); Red Cell Distribution Width 14.1 % (11.6-14.8); White Blood Cell Count 13.6 X10^3/uL (4.5-11.0)
[2024-05-29 07:04] LABS: BUN Creatinine Ratio 20.5 (6-22); Blood Urea Nitrogen 18 mg/dL (7-17); Calcium 8.5 mg/dL (8.4-10.2); Carbon Dioxide 30 mmol/L (22-32); Chloride 101 mmol/L (98-107); Estimated Glomerular Filt Rate > 60 mL/min (>60); Glucose 103 mg/dL (80-110); HEMOLYSIS < 15 (0-50); Sodium 131 mmol/L (137-145)
[2024-05-29 08:00] VITALS: BP 169/74; PULSE 60; RESP 17; TEMP 36.9; O2SAT 94
[2024-05-29] MEDS: DICYCLOMINE 10 MG CAPSULE 20 MG PO (08:43)
[2024-05-29] MEDS: CITALOPRAM 10 MG TABLET PO (08:44)
[2024-05-29] MEDS: PANTOPRAZOLE DR 40 MG TABLET PO (08:44)
[2024-05-29] MEDS: OXYCODONE IR 5 MG TABLET PO ×2 (08:44→12:15)
[2024-05-29] MEDS: lisinopriL 10 MG TABLET PO (08:45)
[2024-05-29] MEDS: ASPIRIN EC 81 MG TABLET PO (08:45)
[2024-05-29] MEDS: hydroCHLOROthiazide 25 MG TABLET 12.5 MG PO (09:00)
--- NOTE | 2024-05-29 09:00 | PT.IPTN ---
Current Diagnoses Anemia, unspecified (05/25/24) Essential (primary) hypertension (05/25/24) Irritable bowel syndrome, unspecified (05/25/24) Radiculopathy, cervical region (05/25/24) Age-related osteoporosis with current pathological fracture, unspecified site, sequela (05/25/24) Laceration without foreign body of other part of head, subsequent encounter (05/25/24) Other displaced fracture of upper end of right humerus, initial encounter for closed fracture (05/25/24) Other displaced fracture of upper end of left humerus, initial encounter for closed fracture (05/25/24) Fracture of unspecified part of neck of left femur, initial encounter for closed fracture (05/25/24) Surgery Performed Operation Date: 05/26/24 13:00 Actual Procedures p Hip Hemiarthroplasty(Left) - Sam Medrano MD Physical Therapy Treatment Note M2 PT-IP Current Condition Start: 05/27/24 08:00 Freq: NEEDED Status: Active Protocol: Document 05/28/24 07:45 MB (Rec: 05/28/24 08:37 MB [id number]) Physical Therapy Current Condition Current Condition Evaluation Date 05/28/24 Treatment Diagnosis Left humeral and femoral fractures, s/p left anterior THR M3 PT-IP Subjective Start: 05/27/24 08:00 Freq: NEEDED Status: Active Protocol: Document 05/29/24 09:29 TS (Rec: 05/29/24 09:38 [id number]) Subjective Physical Therapy Visit Type Type Treatment Note Visit Start Time 09:00 Visit Stop Time 09:29 Number of DOCENT COORDINATOR Visits 1 Physical Therapy Visit Comments Patient Comments Pt is agreeable to PT. Therapy Pain Assessment Pain When Pain Assessed At Rest Pain Present Pain Present Pain Reported M4 PT-IP Mobility and Gait Start: 05/27/24 08:00 Freq: NEEDED Status: Active Protocol: Document 05/29/24 09:29 TS (Rec: 05/29/24 09:38 TS [id number]) PT-Bed Mobility Assessment Supine to Sit Supine to Sit Maximum Assistance,1 Person Assistance,Head of Bed Elevated,Bedrails Scooting Scooting to Edge of Bed Maximum Assistance PT-Transfer Assessment Sit to and From Stand Sit to and from Stand Maximum Assistance,1 Person Assistance Equipment Transfer Assistive Device None,Gait Belt,Vazquez Walker Orthotic/Prosthetic Devices or Brace: Yes Transfers Transfer Destination Chair Transfer Technique Stand Step Pivot Transfer Ability Level of Assist Maximum Assistance,2 Person Assistance Comments Mobility Comments Supine to sit MaxA for LLE to EOB and uprighting trunk, cues for RUE handrail assist. STS with vazquez-walker MaxA, pt has a posterior lean. She performs stand step pivot to the chair MaxA x2 for balance. Pt unable to complete transfer, requires chair brought behind her. Pt was left in the chair, all needs met. Gait Assessment Gait Gait Assistance Required: Maximum Assistance,2 Person Assist Distance (Feet) 1 Able to Maintain Weight Bearing Status Yes During Gait Assistive Devices Assistive Device Gait Belt,Vazquez Walker Orthotic/Prosthetic Devices or Brace: Yes PT-Balance Assessment Sitting Balance and Reactions Static Sitting Balance Ability Good Dynamic Sitting Balance Ability Fair Standing Balance and Reactions Static Standing Balance Ability Poor Dynamic Standing Balance Ability Poor Device Used Right hemiwalker M5 PT-IP Objective Assessments Start: 05/27/24 08:00 Freq: NEEDED Status: Active Protocol: Document 05/28/24 07:45 MB (Rec: 05/28/24 08:37 MB [id number]) Orientation Orientation/Cognition Level of Alertness Alert Orientation Name,Age,Birthday,Month,Date, Year,Day of Week,Place, Situation Language Function Ability No Deficits Noted Safety Awareness Decreased Safety Awareness Memory Description No Deficits Noted Gross Range of Motion Upper Extremity ROM Assessment Left Impaired Impairments Defer to OT, left arm in sling Lower Extremity ROM Assessment Left Impaired Impairments Minimal active left toe and ankle ROM as well as limited left knee and hip ROM s/p fracture and replacement Strength Upper Extremity Strength Assessment Left Impaired Lower Extremity Strength Assessment Left Impaired Comments Strength Comments See ROM comments above, pt cannot tolerate MMT LLE Coordination Assessment Gross Coordination Gross Coordination Impaired Assessment Coordination Comments Left arm in sling and left leg is painful Sensation Assessment Comments Sensation Comments Pt reports sensation is intact B LEs M6 PT-IP Treatment Start: 05/27/24 08:00 Freq: NEEDED Status: Active Protocol: Document 05/29/24 09:29 TS (Rec: 05/29/24 09:38 TS [id number]) Physical Therapy Treatment Education Education Provided Precautions,Weight Bearing Status,Safety M7 PT-IP Assessment and Plan Start: 05/27/24 08:00 Freq: NEEDED Status: Active Protocol: Document 05/29/24 09:29 TS (Rec: 05/29/24 09:38 TS [id number]) PT Summary Assessment and Plan Potential Rehabilitation Potential Good Summary Impairments Pain,ROM,Strength,Balance, Coordination,Bed Mobility, Transfers,Gait,Activity Tolerance Progress Towards Goals Slow Progress due to Pain,Slow Progress due to Activity Tolerance Assessment Summary Pt continues to make good effort with mobility but is limited by weakness and pain. She continues to require MaxA for all mobility. She was unable to complete transfer to chair due to fatigue, required chair brought behind her. PT continues to recommend SNF at this time. Goals Bed Mobility Goal Standby Assistance Transfer Goal Standby Assistance Gait Goal Standby Assistance,Vazquez Walker Gait Distance 50 Other Goals Use of hemiwalker for gait and transfers Days to Meet Goals 5 Frequency of Treatment Other frequency 1-2x/day Treatment Plan Physical Therapy Treatment Plan Bed Mobility Training,Transfer Training,Gait Training, Therapeutic Exercise,Balance Retraining,Post Op Education, Discharge Planning,Hot or Cold Pack,Neuromuscular Re-ed, Coordination Retraining,Manual Therapy Precautions Shoulder Precautions Sling Brace Sling LUE and NWB Other Precautions No hyperextension left hip Weight Bearing Status Weight Bearing Status Weight Bear as Tolerated Allowed Weight Bearing Amount (enter % NWB LUE, WBAT for LLE or #) (%) Recommendations To Nursing Amount of Assist Needed 2 Person Assist Discharge Recommendations PT Discharge Recommendations SNF Rehab Transportation Needs at Discharge Wheelchair/Cabulance
--- NOTE | 2024-05-29 09:14 | PM.PNPO.1 ---
Subjective Subjective Interval history: Patient found sitting comfortably in bed just about to start physical therapy. Denies any new pain or numbness in her left upper or lower extremities. Pain is controlled with oral medications. Denies any fever chills nausea or vomiting. Exam Vital Signs (past 8 hours): - 05/29/24 08:00 Temperature 98.5 F Pulse Rate 60 Respiratory Rate 17 Blood Pressure 169/74 H Pulse Oximetry 94 Fraction of Inspired Oxygen 21 SaO2/FiO2 Ratio 391 Oxygen Delivery Method Room Air Oxygen Flow Rate 0 Narrative Exam Narrative: Left arm: Found resting comfortably in the sling. Notable ecchymosis over the humeral head. Sensation intact to light touch throughout the left upper extremity. Capillary refills less than 2 seconds. Radial pulses intact. Full range of motion of the interphalangeal joints and wrist. Left lower extremity: 5/5 strength in hip flexors, quadriceps, hamstrings, DF, PF, EHL bilaterally. Sensation to light touch intact throughout BLE. Calves soft, compressible, nontender. ?Dressing placed intraoperatively CDI. Resp Effort & Inspection: normal respiratory effort and able to speak in complete sentences Objective Labs 05/29/24 06:15 05/29/24 06:15 Labs: Laboratory Results - last 24 hr 05/29/24 06:15 WBC 13.6 H RBC 2.91 L Hgb 9.4 L Hct 27.2 L MCV 93.5 MCH 32.3 MCHC 34.6 RDW 14.1 Plt Count 190 Neut % (Auto) 69.4 Lymph % (Auto) 16.4 L [place] % (Auto) 10.7 Eos % (Auto) 3.1 Baso % (Auto) 0.4 Neut # (Auto) 9400 H Lymph # (Auto) 2200 [place] # (Auto) 1500 H Eos # (Auto) 400 Baso # (Auto) 100 Sodium 131 L Potassium 4.0 Chloride 101 Carbon Dioxide 30 BUN 18 H Creatinine 0.88 Estimated GFR > 60 BUN/Creatinine Ratio 20.5 Glucose 103 Calcium 8.5 PFSH Medical History Closed fracture of right hip Impingement syndrome of right shoulder Cervical radiculopathy Radiculopathy, thoracic region Fibromyalgia (12/04/01) Osteoporosis (05/2017) 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 Social History marital status: household members: spouse housing: house Smoking Status: Never smoker alcohol intake: never substance use type: does not use Assessment & Plan Post-op Postoperative Procedures: Procedures Operation Date: 05/26/24 13:00 Actual Procedure Side Surgeon p Hip Hemiarthroplasty Left Sam Medrano MD Postoperative day: 3 Postoperative plan narrative: Continue work with physical therapy for ambulation assistance. Continue with aspirin 81 mg twice a day and SCDs when resting for DVT prevention. Pain medication and disposition per hospitalist. Time Spent With Patient Time with patient: less than 15 minutes Quality VTE Deep Vein Thrombosis/Pulmonary Embolism Present on Admission: No
--- NOTE | 2024-05-29 09:42 | PM.DS.1 ---
History of Present Illness History of Present Illness Date Patient Seen: 05/29/24 Time Patient Seen: 09:43 Chief complaint: GLF Narrative: 84-year-old female with a past medical history chronic cervical neck pain hypertension hyperlipidemia gastroesophageal reflux sleep apnea osteoarthritis osteoporosis with history of compression fracture of spine. Patient presented to the emergency department 05/26/24 by EMS after a fall. She was walking her dog when she got tangled in the dog leash and fell. Patient hit her head on the concrete while falling onto her left side. She is complaining of left shoulder pain head pain and hip pain. Patient does not recall of losing consciousness she does have an abrasion. Patient does not have a history of syncopal episodes or seizures. Patient was admitted to the hospital approximately 1 year ago after she fell and landed on her right hip and hit her head. Patient had a displaced right femoral neck fracture that time and was admitted for hip repair. On review of her emergency department visit, she has mild elevation of her blood pressure. Her pulse is 87. Patient had laboratory tests including white blood cell count which was normal she has not anemic with a hemoglobin of 12 and 36. Patient's sodium is mildly low at 135 patient has normal kidney function. Her glucose is 109 her liver functions normal. Patient's x-ray were reviewed patient has a minimally displaced right humerus fracture. Patient has a left femoral neck fracture. Patient has a negative CT scan for intracranial pathology. Patient has a normal cervical spine CT scan which showed no fracture. EKG shows normal sinus rhythm. She received 1 suture to repair small left supraorbital laceration and was admitted for surgical repair of left femoral neck fracture. Discharge Providers Provider Date of admission: 05/25/24 15:18 Discharge Date: 05/29/24 Primary care physician: Omega Ignacio MD Consults: 05/25/24 16:17 Consult to Physician Routine Comment: Consulting Provider: Sam Medrano Reason for consultation: hip fracture Has provider been notified: Yes 05/26/24 18:39 Consult to Discharge Planning Routine Comment: Consult to Occupational Therapy Evaluate & Treat Comment: Physician Instructions: Evaluate and treat Consult to Physical Therapy Evaluate & Treat Comment: Physician Instructions: post op HERNAN protocol Discharge provider: Omega Ignacio MD Summary Hospital Course Discharge Diagnosis: #left hip fracture #left proximal humeral fracture #osteoarthritis with radiculopathy #osteoporosis #anemia #IBS #hypertension Hospital Course: Admitted for surgical repair of left femoral neck fracture. Procedure complicated by spiral fracture of femur below lesser trochanter while manipulating leg into place for broaching. Ultimately underwent cemented left hip hemiarthroplasty with 2 cerclage cables placed for spiral fracture. Initial recovery limited due to pain associated with left humeral fracture. Noted to have significant postoperative anemia 6.8 mg/dL on POD #1, improved s/p transfusion of 2u pRBC. Was able to participate in PT on POD #2 with recommendation for discharge to SNF given significant left-sided mobility limitation. Status at Discharge Cognitive/behavioral status at discharge: oriented Overall status at discharge: patient is not back to baseline Time Spent with Patient Time spent: Less than 30 minutes Exam Vital Signs (past 8 hours): - // 08:00 Temperature 98.5 F Pulse Rate 60 Respiratory Rate 17 Blood Pressure 169/74 H Pulse Oximetry 94 Fraction of Inspired Oxygen 21 SaO2/FiO2 Ratio 391 Oxygen Delivery Method Room Air Oxygen Flow Rate 0 Narrative Exam Narrative: General: Pleasant, NAD HEENT: NC, L side periorbital bruising, EOMI, moist membranes CV: RRR, normal S1-S2, no m/g/r Resp: CTAB, comfortable WOB Abd: Soft, NTND, +BS Ext: L arm in sling, LLE with clean post-op dressing, no significant local tenderness or erythema Skin: No rash noted Neuro: A&O x3, no focal deficits Objective Labs 05/29/24 06:15 05/29/24 06:15 Labs: Laboratory Results - last 24 hr 05/29/24 06:15 WBC 13.6 H RBC 2.91 L Hgb 9.4 L Hct 27.2 L MCV 93.5 MCH 32.3 MCHC 34.6 RDW 14.1 Plt Count 190 Neut % (Auto) 69.4 Lymph % (Auto) 16.4 L [place] % (Auto) 10.7 Eos % (Auto) 3.1 Baso % (Auto) 0.4 Neut # (Auto) 9400 H Lymph # (Auto) 2200 [place] # (Auto) 1500 H Eos # (Auto) 400 Baso # (Auto) 100 Sodium 131 L Potassium 4.0 Chloride 101 Carbon Dioxide 30 BUN 18 H Creatinine 0.88 Estimated GFR > 60 BUN/Creatinine Ratio 20.5 Glucose 103 Calcium 8.5 PFSH Medical History Closed fracture of right hip Impingement syndrome of right shoulder Cervical radiculopathy Radiculopathy, thoracic region Fibromyalgia (12/04/01) Osteoporosis (05/2017) 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 Social History marital status: household members: spouse housing: house Smoking Status: Never smoker alcohol intake: never substance use type: does not use Discharge Assessment & Plan Assessment and Plan Assessment: 84-year-old female admitted for surgical repair of left hip fracture after ground level fall. Plan of Treatment: #left hip fracture #left proximal humeral fracture S/p left hip hemiarthroplasty with cerclage cables placed for spiral fracture of femur which occurred during positioning of leg during surgery. Humeral fracture managed non-operatively with sling immobilization. Generally recovering well and able to participate in PT/OT. Discharging to [facility]. -ASA 81 mg b.i.d. for DVT ppx per ortho recs #osteoarthritis with radiculopathy Arthritic pain with nerve impingement affecting multiple joints, particularly cervical spine. -continue home cyclobenzaprine, tramadol #osteoporosis Contributing factor to pathologic humeral and hip fractures. -consider bisphosphonate therapy on discharge #anemia Acute on chronic due to intraoperative blood loss. Improved 6.8 -> 10.0 -> 9.8 s/p 2u pRBC. -consider iron supplementation #IBS -continue home dicyclomine, citalopram omeprazole #hypertension -continue home lisinopril-HCTZ Discharge Plan Discharge Plan Patient Disposition: SNF Transfer to: [facility] Discharge orders & Medications Prescriptions: New aspirin 81 mg tablet,delayed release (DR/EC) 81 mg PO BID Qty: 60 1RF tramadol 50 mg tablet 50 mg PO BID PRN (Reason: pain) Qty: 60 0RF Continued lisinopril-hydrochlorothiazide 10-12.5 mg tablet 1 tab PO DAILY Qty: 90 3RF omeprazole 40 mg capsule,delayed release(DR/EC) 40 mg PO DAILY Qty: 90 1RF Rx Instructions: w/Meals. docusate sodium 100 mg tablet 100 mg PO BID PRN (Reason: Constipation) ondansetron HCl 4 mg tablet 4 mg PO Q8-12H PRN (Reason: nausea and vomiting) Qty: 30 1RF citalopram 10 mg tablet 10 mg PO DAILY dicyclomine 20 mg Tablet 20 mg PO BID PRN (Reason: IBS) cyclobenzaprine 10 mg tablet 10 mg PO BID MDD 2 TABS PRN (Reason: MUSCLE SPASMS) celecoxib [Celebrex] 200 mg capsule 200 mg PO DAILY PRN (Reason: Pain (Scale Score 4-6)) Discontinued aspirin 81 mg tablet,delayed release (DR/EC) 81 mg PO DAILY tramadol 50 mg tablet 50 mg PO BID PRN (Reason: pain) Qty: 30 3RF Follow up/Referrals: Omega Ignacio MD [Primary Care Provider] - Diet/Activity/Treatments Diet: Regular Other treatments: Remove sutures to forehead on 06/01/24. Needs follow up appointment with ortho in 2 weeks. Sling to left arm, to wear at all times, will be reassessed at follow up appointment. Non weight bearing to the left upper arm. Lt leg may weight bear as tolerated. [facility] Restrictions to mobility: See above. Visit Report/Discharge Packet Instructions: DI for Hip Replacement, DI for Laceration Repair -- Complex Suture, DI for Irritable Bowel Syndrome, How to Prevent Falls, DI for Humeral Fracture Stand Alone Forms: Patient Portal/API Discharge Data Primary Care Provider: Omega Ignacio Discharges patient from system. Discharge Date/Time: 05/29/24 12:10 Quality VTE Deep Vein Thrombosis/Pulmonary Embolism Present on Admission: No IH PROFEE Charge Codes Discharge inpatient/observation: [id number]
--- NOTE | 2024-05-29 10:31 | CM.DPNOTE ---
DCP to SNF Continued: Reviewed EMR and team rounds for pt?s medical status. Pt to discharge to [facility] today, 05/29/2024. 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 DCP notified Provider, Dr. Ignacio, who will coordinate discharge paperwork and paper rx. PASRR completed, other dc paperwork pending to be sent to [facility]. Plan: Anticipating dc to [facility] via their facility transport at 1130. CM Team will continue to follow for coordination of discharge plans. JUMA Guevara
--- NOTE | 2024-05-29 14:24 | PC.NURSE ---
Transfer: Pt transfered to [facility]. Report given to Sarah Beth, admitting nurse. Reviewed hospital course. Pt is very bruised up from fall. She has a sling on her lt arm which she is to wear at all times for now. She is non weight bear on Lt arm, lt leg, can weight bear. The stiches on her forehead come out in 3 days and she needs to see ortho again in 2 weeks. Reviewed adl's. Pt is receiving oxy for pain and it has been effective. Tolerates diet w/out problems. Vds w/out diff. Transfer packet given. Questions answered.
== END 2024-05-29 12:10 | DRG 522 ==
LOC: ED 12:47 → AC 15:19
PROVIDERS: Orthopaedic Surgery; Orthopaedic Surgery Adult Reconstructive Orthopaedic Surgery; Admitting Provider Family Medicine; Emergency Provider Emergency Medicine; PCP Family Medicine; Referring Provider Emergency Medicine; Visit Provider Family Medicine
PROC: 0SRS0JZ Replacement of Left Hip Joint, Femoral Surface with Synthetic Substitute, Open Approach (ICD-10-PCS; CPT 27125; principal; 2024-05-26 13:00)
DX: M80.052A Age-related osteoporosis with current pathological fracture, left femur, initial encounter for fracture (principal); D62 Acute posthemorrhagic anemia; M96.89 Other intraoperative and postprocedural complications and disorders of the musculoskeletal system; M80.022A Age-related osteoporosis with current pathological fracture, left humerus, initial encounter for fracture; I10 Essential (primary) hypertension; F32.A Depression, unspecified; K58.9 Irritable bowel syndrome, unspecified; S01.81XA Laceration without foreign body of other part of head, initial encounter; K21.9 Gastro-esophageal reflux disease without esophagitis; M47.22 Other spondylosis with radiculopathy, cervical region; M15.9 Polyosteoarthritis, unspecified; M79.7 Fibromyalgia; W01.198A Fall on same level from slipping, tripping and stumbling with subsequent striking against other object, initial encounter; Y93.K1 Activity, walking an animal; Y83.8 Other surgical procedures as the cause of abnormal reaction of the patient, or of later complication, without mention of misadventure at the time of the procedure
CPT/HCPCS: 12011; 36415; 36430; 70450; 72125; 73030; 73060; 73502; 73503; 76000; 80048; 80053; 85014; 85018; 85025; 86850; 86900; 86901; 93005; 94762; 96374; 96375; 96376; 97161; 97166; 97530; 99283; 99285; C1776; P9016; A9270; C1713; J0134; J0690; J1100; J1171; J1885; J2405; J2704; J3010; J7050

== ENCOUNTER 2024-07-26 13:58 | Emergency (ER) | payer MEDICARE, SELFPAY ==
[2024-05-25 16:01] VITALS: BMI 24.5
[2024-07-26] VITALS (12 sets, daily range): BP systolic 162–211; BP diastolic 76–88; PULSE 78–93; RESP 16–22; TEMP 36.8–37.1; O2SAT 96–99; BMI 22.6
--- NOTE | 2024-07-26 14:08 | DI.RAD.S_ITS ---
PROCEDURE: XR CHEST 1V INDICATIONS: chest pain TECHNIQUE: One view of the chest was acquired. COMPARISON: [facility], CR, XR CHEST 2V, 05/23/2023, 11:19. FINDINGS: Surgical changes and devices: None. Lungs and pleura: Lungs are clear. No pleural effusions or pneumothorax. Mediastinum: Mediastinal contours appear normal. Heart size is normal. Bones and chest wall: No suspicious bony lesions. Overlying soft tissues appear unremarkable. IMPRESSION: No acute cardiopulmonary abnormality is seen. Approved by: Sam Long M.D. on 07/26/2024 at 13:54
--- NOTE | 2024-07-26 14:23 | PC.NURSE ---
patient given to nurse from triage at 1423.
--- NOTE | 2024-07-26 14:25 | ED.CHESTPAIN ---
HPI - Chest Pain General Chief Complaint: Chest Pain Stated Complaint: Chest Pains Time Seen by Provider: 07/26/24 14:24 Source: patient and family Mode of arrival: Wheelchair Limitations: no limitations Limitations: no limitations History of Present Illness HPI narrative: 84-year-old female history of hypertension, prior humeral fracture, dyslipidemia, hip fracture 2 months ago patient presents with complaint of chest pain she describes as substernal without radiation. Worse with inhalation, movement particularly getting up for using her arms to push off. Patient states it did have similar symptoms years ago was diagnosed ultimately with costochondritis but was in the hospital for cardiac workup. She notes no new recent trauma or injuries. She has had 4 days of symptoms without resolution. She has been taking Tylenol every 8 hours for this as well as her hip and arm pain. She takes tramadol twice daily as needed for discomfort as well but tries to avoid this. She had spoke to PT today because they have been coming regularly she has been doing physical therapy for her arm and hip at home. They recommended she come for evaluation. Patient denies any fevers no cough cold or congestion symptoms. No hemoptysis. Patient denies any new swelling in extremities. Is most comfortable without movement but still has discomfort. States it does feel similar to her costochondritis. Patient states no anticoagulation states she was not currently on any aspirin. She did not take her blood pressure medication this morning. Reports allergies to Compazine and Augmentin. No tobacco, no regular alcohol, no recreational drugs. Dr. Ignacio is her primary care physician. Dr. Sams is her orthopedic surgeon. Related Data Home Medications Medication Instructions Recorded Confirmed docusate sodium 100 mg tablet 100 mg PO BID PRN Constipation 01/17/24 05/25/24 celecoxib 200 mg capsule (Celebrex) 200 mg PO DAILY PRN Pain (Scale 05/25/24 05/25/24 Score 4-6) citalopram 10 mg tablet 10 mg PO DAILY 05/25/24 05/25/24 cyclobenzaprine 10 mg tablet 10 mg PO BID PRN MUSCLE SPASMS 05/25/24 05/25/24 dicyclomine 20 mg tablet 20 mg PO BID PRN IBS 05/25/24 05/25/24 Previous Rx's Medication Instructions Recorded ondansetron HCl 4 mg tablet 4 mg PO Q8-12H PRN nausea and 07/24/23 vomiting #30 tabs omeprazole 40 mg capsule,delayed 40 mg PO DAILY #90 caps 01/17/24 release lisinopril 10 1 tab PO DAILY #90 tabs 01/31/24 mg-hydrochlorothiazide 12.5 mg tablet aspirin 81 mg tablet,delayed 81 mg PO BID #60 tabs 05/29/24 release tramadol 50 mg tablet 50 mg PO BID PRN pain #60 tabs 05/29/24 tramadol 50 mg tablet 50 mg PO BID PRN pain #10 tabs 07/26/24 Allergies Allergy/AdvReac Type Severity Reaction Status Date / Time prochlorperazine Allergy Severe lock jaw Verified 03/20/24 11:59 [PROCHLORPERAZINE] type symptoms amoxicillin [From AUGMENTIN] AdvReac Intermediate Nausea and Verified 03/20/24 11:59 vomitting. 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 Social History marital status: household members: spouse housing: house Smoking Status: Never smoker alcohol intake: never substance use type: does not use Smoking Status: Never smoker alcohol intake frequency: holidays/special occasions only Exam Narrative Exam Narrative: GENERAL: Alert and oriented x three, female in mild distress. HEENT: Head normocephalic, atraumatic, EOMI, pupils reactive, face symmetric, moist mucous membranes NECK: Supple, full range of motion CARDIOVASCULAR: Regular rate and rhythm without murmurs, rubs or gallops. No JVD. No edema bilateral lower extremities. RESPIRATORY: Breath sounds equal bilaterally, no wheezes rales or rhonchi. No tachypnea or accessory muscle use. Patient at does have reproducible chest pain on exam. No rash or skin changes. ABDOMEN: Soft, nontender. Normoactive bowel sounds all 4 quadrants. No guarding or rebound, rigidity, no mass : No CVA tenderness EXTREMITIES: Normal range of motion, no clubbing or edema. Neurovascularly intact NEUROLOGICAL: Cranial nerves II through XII grossly intact. Moving all extremities SKIN: Warm, dry, no petechiae, no rashes or lesions. Initial Vital Signs Initial Vital Signs: Vital Signs Temperature 98.7 F 07/26/24 14:04 Pulse Rate 91 H 07/26/24 14:04 Respiratory Rate 16 07/26/24 14:04 Blood Pressure 201/83 H 07/26/24 14:04 Pulse Oximetry 98 07/26/24 14:04 Oxygen Delivery Method Room Air 07/26/24 14:04 Course Orders Ordered: ED Orders 07/26/24 14:08 XR chest 1V Stat EKG-12 Lead Stat 07/26/24 14:16 Complete Blood Count AUTO DIFF Stat Comprehensive Metabolic Panel Stat Lipase Stat Magnesium Stat NT-proBNP (BNP-Adult 18+) Stat PTT Partial Thromboplastin Ray Stat Prothrombin Time INR Stat Troponin & CK Cardiac Panel Stat 07/26/24 14:35 CT angio chest PE protocol Stat Discontinued Medications Aspirin (Aspirin 81 Mg Chew Tab) 324 mg PO NOW ONE Stop: 07/26/24 14:09 Last Admin: 07/26/24 14:30 Dose: 324 mg Documented By: PATRICIA Hydrochlorothiazide (Hydrochlorothiazide 25 Mg Tablet) 12.5 mg PO NOW ONE Stop: 07/26/24 14:34 Last Admin: 07/26/24 14:53 Dose: 12.5 mg Documented By: PATRICIA Lisinopril (Lisinopril 10 Mg Tablet) 10 mg PO NOW ONE Stop: 07/26/24 14:34 Last Admin: 07/26/24 14:50 Dose: 10 mg Documented By: PATRICIA Vital Signs Vital signs: Vital Signs - 8 hr 07/26/24 14:04 07/26/24 14:12 07/26/24 14:14 Temperature 98.7 F Pulse Rate 91 H 93 H Respiratory Rate 16 Blood Pressure 201/83 H 211/88 H Pulse Oximetry 98 98 Oxygen Delivery Method Room Air 07/26/24 14:14 07/26/24 14:30 07/26/24 14:50 Temperature Pulse Rate 89 85 81 Respiratory Rate 22 Blood Pressure 183/77 H Pulse Oximetry 98 98 Oxygen Delivery Method 07/26/24 14:51 07/26/24 14:51 07/26/24 15:00 Temperature Pulse Rate 81 80 Respiratory Rate 20 18 Blood Pressure 183/77 H Pulse Oximetry 98 99 Oxygen Delivery Method 07/26/24 15:01 07/26/24 15:01 07/26/24 15:30 Temperature Pulse Rate 79 78 Respiratory Rate 20 20 Blood Pressure 187/78 H Pulse Oximetry 98 97 Oxygen Delivery Method 07/26/24 16:00 07/26/24 16:30 07/26/24 16:38 Temperature 98.2 F Pulse Rate 78 80 78 Respiratory Rate 20 Blood Pressure 162/76 H Pulse Oximetry 96 97 97 Oxygen Delivery Method Room Air MDM - Chest Pain Lab Data 07/26/24 14:16 07/26/24 14:16 Labs: Lab Results 07/26/24 Range/Units 14:16 WBC 7.3 (4.5-11.0) X10^3/uL RBC 3.63 L (4.0-5.2) X10^6/uL Hgb 11.9 L (12.0-16.0) g/dL Hct 35.0 L (36-46) % MCV 96.4 (80-100) fL MCH 32.6 (26-34) PG MCHC 33.9 (30-36) % RDW 14.3 (11.6-14.8) % Plt Count 294 (150-400) X10^3/uL Neut % (Auto) 54.5 (50-75) % Lymph % (Auto) 31.2 (25-40) % Edgar % (Auto) 9.6 (3-14) % Eos % (Auto) 4.0 (2-4) % Baso % (Auto) 0.7 (0-2) % Neut # (Auto) 4000 (3012-1115) /uL Lymph # (Auto) 2300 (5011-0330) /uL Edgar # (Auto) 700 (0-900) /uL Eos # (Auto) 300 (0-450) /uL Baso # (Auto) 100 (0-100) /uL PT 11.3 (9.4-12.5) SECONDS INR 1.0 (0.9-1.3) APTT 36 (25.1-36.5) SECONDS Sodium 133 L (137-145) mmol/L Potassium 4.1 (3.4-5.1) mmol/L Chloride 96 L (98-107) mmol/L Carbon Dioxide 28 (22-32) mmol/L BUN 19 H (7-17) mg/dL Creatinine 0.98 (0.52-1.04) mg/dL Estimated GFR 56 L (>60) mL/min BUN/Creatinine Ratio 19.4 (6-22) Glucose 136 H (80-110) mg/dL Calcium 9.4 (8.4-10.2) mg/dL Magnesium 1.6 (1.6-2.3) mg/dL Total Bilirubin 0.4 (0.2-1.3) mg/dL AST 39 H (14-36) IU/L ALT 24 (<35) IU/L Alkaline Phosphatase 82 (38-126) U/L Total Creatine Kinase 47 (30-135) U/L Troponin I < 0.012 (0.01-0.034) ng/mL NT-Pro-B Natriuret Pep 254 (<450) pg/mL Total Protein 7.6 (6.3-8.2) g/dL Albumin 4.5 (3.5-5.0) g/dL Globulin 3.1 (1.7-4.1) g/dL Albumin/Globulin Ratio 1.5 (1.0-2.8) Lipase 53 (23-300) U/L ECG Data Attestation: I personally reviewed and interpreted this ECG as follows: Prior ECG tracings: available for review Interpretation: Sinus rhythm rate 80 VA 168 QRS 80 QTC of 394, no acute ST elevation depression appreciated. Patient has prior from 05/25/2024 which appears similar. [facility] Narrative Medical decision making narrative: 84-year-old female comes in with a complaint of chest pain worse with movement patient does have some risk factors for cardiac source but also had recent hip replacement and left humeral fracture in April of 2024 is not currently anticoagulated sounds like she was on aspirin at one point. Patient was higher risk for blood clots so we will obtain labs, cardiac workup and angio chest to rule out PE. Patient notes she was had costochondritis in the past and states this feels very similar. She has had 4 days of symptoms without resolution worse with movement. EKG shows sinus rhythm no acute ST changes Chest x-ray shows no acute change. Labs show white count of 7.3 hemoglobin 11.9 appears improved from prior on 05/29/2024 patient appears to likely have had blood transfusion at that time. Patient's platelets are 294. Coags are negative. Chemistry shows sodium 133 chloride 96 BUN 19 otherwise appropriate electrolytes GFR is 56 with a creatinine of 0.98 glucose is 136 LFTs are negative except for an AST of 39 bilirubin ALT and lipase are normal, troponins less than 0.012 with a BNP of 254. Patient has had 4 days of persistent symptoms with negative troponin do not feel we need to repeat at this time. CT angio chest shows no pulmonary embolism, moderate hiatal hernia prior granulomatous disease. Patient has had chest pain for 4 days negative troponins no acute EKG changes felt appropriate for discharge no PE, patient has not any traumatic injuries, patient's chest wall pain that is very easily reproducible. She states it is feels very similar to when she had costochondritis. Discharge Plan Departure Patient Disposition: Home Clinical Impression: Chest wall pain Instructions: DI for Chest Pain Activity Restrictions/Additional Instructions: Follow up for rechecked, please call for an appointment if you don't already have one. Continue your home medications as prescribed. A prescription for a few extra tablets of tramadol has been sent you can take 1 tablet every 12 hours as needed. Please return for new or worsening symptoms, fevers, coughing up blood, worsening chest pain or shortness of breath, new swelling of your extremities, lightheadedness or passing out, persistent vomiting or other new or concerning changes Prescriptions: New tramadol 50 mg tablet 50 mg PO BID PRN (Reason: pain) Qty: 10 0RF No Action lisinopril-hydrochlorothiazide 10-12.5 mg tablet 1 tab PO DAILY Qty: 90 3RF omeprazole 40 mg capsule,delayed release(DR/EC) 40 mg PO DAILY Qty: 90 1RF Rx Instructions: w/Meals. docusate sodium 100 mg tablet 100 mg PO BID PRN (Reason: Constipation) ondansetron HCl 4 mg tablet 4 mg PO Q8-12H PRN (Reason: nausea and vomiting) Qty: 30 1RF citalopram 10 mg tablet 10 mg PO DAILY dicyclomine 20 mg Tablet 20 mg PO BID PRN (Reason: IBS) cyclobenzaprine 10 mg tablet 10 mg PO BID MDD 2 TABS PRN (Reason: MUSCLE SPASMS) celecoxib [Celebrex] 200 mg capsule 200 mg PO DAILY PRN (Reason: Pain (Scale Score 4-6)) aspirin 81 mg tablet,delayed release (DR/EC) 81 mg PO BID Qty: 60 1RF tramadol 50 mg tablet 50 mg PO BID PRN (Reason: pain) Qty: 60 0RF Referrals: Omega Ignacio MD [Primary Care Provider] - Stand Alone Forms: Patient Portal/API/Survey
[2024-07-26] MEDS: ASPIRIN 81 MG CHEW TAB 324 MG PO (14:30)
[2024-07-26 14:32] LABS: Add Manual Diff / Slide Review NO; Basophils Absolute Auto 100 /uL (0-100); Basophils Percent Auto 0.7 % (0-2); Eosinophils Absolute Auto 300 /uL (0-450); Hemoglobin 11.9 g/dL (12.0-16.0); Lymphocytes Absolute Auto 2300 /uL (1100-4500); Lymphocytes Percent Auto 31.2 % (25-40); Mean Corpuscular HGB Conc 33.9 % (30-36); Mean Corpuscular Hemoglobin 32.6 PG (26-34); Mean Corpuscular Volume 96.4 fL (80-100); Monocytes Absolute Auto 700 /uL (0-900); Monocytes Percent Auto 9.6 % (3-14); Neutrophils Absolute Auto 4000 /uL (1500-7000); Neutrophils Percent Auto 54.5 % (50-75); Platelet Count 294 X10^3/uL (150-400); Red Blood Cell Count 3.63 X10^6/uL (4.0-5.2); Red Cell Distribution Width 14.3 % (11.6-14.8); White Blood Cell Count 7.3 X10^3/uL (4.5-11.0)
--- NOTE | 2024-07-26 14:33 | EKG_ITS ---
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
--- NOTE | 2024-07-26 14:35 | DI.CT.S_ITS ---
PROCEDURE: CT ANGIO CHEST PE PROTOCOL INDICATIONS: chest pain, had hip fx/arm fx 2 month ago TECHNIQUE: After the administration of intravenous contrast, 2 mm thick sections acquired from the pulmonary apices to the posterior costophrenic angles. 3-dimensional maximum intensity projection (MIP) coronal and sagittal reformats were then acquired through the thorax. For radiation dose reduction, the following was used: automated exposure control, adjustment of mA and/or kV according to patient size. COMPARISON: None. FINDINGS: Image quality: Diagnostic. Pulmonary arteries: Pulmonary arteries are normal in size, and demonstrate no intraluminal filling defects to suggest central pulmonary embolism. Lower Neck: No enlarged lymph nodes. Thyroid: No thyroid nodules which require sonographic follow up, per consensus guidelines. Axillae: No enlarged lymph nodes. Chest Wall: Unremarkable. Bones: Unremarkable. Upper lumbar spine vertebroplasty treatment. Subtle vertebral compression fractures in the lower thoracic spine are of uncertain age, likely old. Lungs and Pleura: No pneumothorax or pleural effusions. No consolidation or suspicious nodules. Heart: Heart size is normal. No pericardial effusion. Thoracic Vessels: No aortic aneurysm. Mediastinum and [place]: No enlarged lymph nodes. Calcified left hilar small nodes and left lower lobe calcified granuloma consistent with prior granulomatous disease. Esophagus: No wall thickening. Large hiatal hernia. Upper Abdomen: Visualized upper abdomen solid organs and bowel loops appear normal. IMPRESSION: No pulmonary embolus. Moderate hiatal hernia. Prior granulomatous disease Approved by: Sam Long M.D. on 07/26/2024 at 14:48
--- NOTE | 2024-07-26 14:43 | PC.NURSE ---
Nurse Boby called RT for EKG at 1423 after overhearing that EKG had not been obtained yet.
[2024-07-26 14:44] LABS: Prothrombin Time 11.3 SECONDS (9.4-12.5)
--- NOTE | 2024-07-26 14:45 | PC.NURSE ---
patient having chest pain for 4 days. pain is focal around the sternum and feels like she is having costalchondritits pain which she has been having for 20 years. She denies injury. The pain is present on palpation and movement and breathing which has been causing sob. She also recently broke her left shoulder and hip but has reported that she has been able to stay as mobile as possible. She denies feeling dizzy, lightheaded. He lungs are clear bilatterally.
[2024-07-26 14:47] LABS: PTT Partial Thromboplastin Tim 36 SECONDS (25.1-36.5)
[2024-07-26] MEDS: lisinopriL 10 MG TABLET PO (14:50)
[2024-07-26] MEDS: hydroCHLOROthiazide 25 MG TABLET 12.5 MG PO (14:53)
[2024-07-26 15:00] LABS: Alanine Aminotransferase 24 IU/L (<35); Albumin 4.5 g/dL (3.5-5.0); Albumin Globulin Ratio 1.5 (1.0-2.8); Alkaline Phosphatase 82 U/L (38-126); Aspartate Aminotransferase 39 IU/L (14-36); BUN Creatinine Ratio 19.4 (6-22); Bilirubin Total 0.4 mg/dL (0.2-1.3); Blood Urea Nitrogen 19 mg/dL (7-17); Calcium 9.4 mg/dL (8.4-10.2); Carbon Dioxide 28 mmol/L (22-32); Chloride 96 mmol/L (98-107); Creatine Kinase 47 U/L (30-135); Estimated Glomerular Filt Rate 56 mL/min (>60); Globulin 3.1 g/dL (1.7-4.1); Glucose 136 mg/dL (80-110); HEMOLYSIS < 15 (0-50); Lipase 53 U/L (23-300); Magnesium 1.6 mg/dL (1.6-2.3); Potassium 4.1 mmol/L (3.4-5.1); Sodium 133 mmol/L (137-145); Total Protein 7.6 g/dL (6.3-8.2)
[2024-07-26 15:12] LABS: NT-proBNP (BNP-Adult 18+) 254 pg/mL (<450); Troponin I < 0.012 ng/mL (0.01-0.034)
== END 2024-07-26 16:38 | disposition home or self-care (01) ==
PROVIDERS: Emergency Provider Emergency Medicine; PCP Family Medicine
DX: R07.89 Other chest pain (principal)
CPT/HCPCS: 36415; 71045; 71275; 80053; 82550; 83690; 83735; 83880; 84484; 85025; 85610; 85730; 93005; 99284; Q9967

== ENCOUNTER → 2024-08-27 11:04 | Outpatient (CLI) | payer MEDICARE, SELFPAY ==
[2024-05-25 16:01] VITALS: BMI 24.5
--- NOTE | 2024-08-27 11:06 | DI.RAD.S_ITS ---
PROCEDURE: XR HUMERUS LT 2V INDICATIONS: Left humeral fracture TECHNIQUE: 2 views of the humerus were acquired. COMPARISON: [facility], CR, XR HUMERUS LT 2V, 05/25/2024, 14:02. FINDINGS: Bones: Redemonstration of displaced humeral head/neck fracture. There is apparent increased displacement, which may be positional. Glenohumeral joint is intact. No new fracture identified. Soft tissues: No suspicious soft tissue calcifications. IMPRESSION: Displaced humeral head/neck fracture with apparent increased displacement compared to prior, which may be positional. No new fracture identified. Approved by: Tamia Marc M.D.,Ph.D. on 08/31/2024 at 8:16
--- NOTE | 2024-08-27 11:06 | DI.RAD.S_ITS ---
PROCEDURE: XR SHOULDER LT MIN 2V INDICATIONS: Left humeral fracture/shoulder pain TECHNIQUE: 3 views of the shoulder were acquired. COMPARISON: [facility], CR, XR SHOULDER LT MIN 2V, 05/25/2024, 12:15. FINDINGS: Bones: Ongoing healing of proximal humeral head/neck fracture. No new fracture identified. Glenohumeral joint is intact. Soft tissues: No suspicious soft tissue calcifications. IMPRESSION: Ongoing healing of left proximal humeral head/neck fracture. No new fracture identified. Approved by: Tamia Marc M.D.,Ph.D. on 08/31/2024 at 8:18
[2024-08-27 12:50] LABS: HEMOLYSIS < 15 (0-50); Iron 119 ug/dL (37-170)
[2024-08-27 13:03] LABS: Percent Iron Saturation 44 % (15-50); Total Iron Binding Capacity 272 ug/dL (265-497); Transferrin 228 mg/dL (206-381)
[2024-08-27 13:19] LABS: Ferritin 27 ng/mL (11-264)
[2024-08-27 13:34] LABS: Vitamin B12 Reflex MMA if <400 526 pg/mL (239-931)
[2024-08-27 13:57] LABS: Folate 11.7 ng/mL (2.76-20.0)
== END ==
PROVIDERS: PCP Family Medicine; Referring Provider Family Medicine; Visit Provider Family Medicine
DX: S42.302A Unspecified fracture of shaft of humerus, left arm, initial encounter for closed fracture (principal); D64.9 Anemia, unspecified; S42.292A Other displaced fracture of upper end of left humerus, initial encounter for closed fracture; M25.512 Pain in left shoulder; X58.XXXA Exposure to other specified factors, initial encounter
CPT/HCPCS: 36415; 73030; 73060; 82607; 82728; 82746; 83540; 83550

== ENCOUNTER → 2024-12-24 13:19 | Outpatient (CLI) | payer MEDICARE, SELFPAY ==
[2024-05-25 16:01] VITALS: BMI 24.5
[2024-12-24 14:35] LABS: Hematocrit 35.5 % (36-46); Hemoglobin 12.1 g/dL (12.0-16.0); Mean Corpuscular HGB Conc 33.9 % (30-36); Mean Corpuscular Hemoglobin 32.7 PG (26-34); Mean Corpuscular Volume 96.3 fL (80-100); Platelet Count 255 X10^3/uL (150-400)
[2024-12-24 14:42] LABS: HEMOLYSIS < 15 (0-50); Iron 126 ug/dL (37-170)
[2024-12-24 14:45] LABS: Alanine Aminotransferase 17 IU/L (<35); Albumin 4.3 g/dL (3.5-5.0); Albumin Globulin Ratio 1.5 (1.0-2.8); Alkaline Phosphatase 81 U/L (38-126); Blood Urea Nitrogen 30 mg/dL (7-17); Calcium 9.5 mg/dL (8.4-10.2); Carbon Dioxide 27 mmol/L (22-32); Chloride 100 mmol/L (98-107); Estimated Glomerular Filt Rate 56 mL/min (>60); Globulin 2.8 g/dL (1.7-4.1); Glucose 81 mg/dL (70-99); HEMOLYSIS < 15 (0-50); Potassium 4.7 mmol/L (3.4-5.1); Sodium 136 mmol/L (137-145); Total Protein 7.1 g/dL (6.3-8.2)
[2024-12-24 14:53] LABS: Percent Iron Saturation 46 % (15-50); Total Iron Binding Capacity 275 ug/dL (265-497); Transferrin 229 mg/dL (206-381)
== END ==
PROVIDERS: PCP Family Medicine; Referring Provider Family Medicine; Visit Provider Family Medicine
DX: D64.9 Anemia, unspecified (principal); R42 Dizziness and giddiness
CPT/HCPCS: 36415; 80053; 83540; 83550; 85027